=== PATIENT | male | born 1960 | race African-American/Black ===

== ENCOUNTER 2016-08-25 10:10 | Inpatient (IN) | payer OTHER ==
[2016-08-25 14:12] VITALS: BMI 29.5
--- NOTE | 2016-08-25 16:58 | HP ---
Admission [facility] - [facility] Chief Complaint: i am her for rehab from alcohol,cocaine and marijuana Allergies/Adverse Reactions: Allergies Allergy/AdvReac Type Severity Reaction Status Date / Time No Known Allergies Allergy Verified 08/25/16 16:27 History of Present Illness: this 55 years old male with alcohol,cocaine and marijuana dependence,seeking rehab,last treatment [facility] 11/18/13 to 11/21/13 nicotine dependence no significant period of sobriety Exam Limitations: No Limitations - Ebola screening Have you been sick,other than usual withdrawal symptoms: No - Review of Systems Constitutional: No Symptoms Reported EENT: reports: No Symptoms Reported Respiratory: reports: No Symptoms reported Cardiac: reports: No Symptoms Reported GI: reports: No Symptoms Reported : reports: No Symptoms Reported Musculoskeletal: reports: No Symptoms Reported Integumentary: reports: No Symptoms Reported Neuro: reports: No Symptoms reported Endocrine: reports: No Symptoms Reported Hematology: reports: No Symptoms Reported Psychiatric: reports: No Sypmtoms Reported Patient History - Patient Medical History Hx Anemia: No Hx Asthma: Yes (on inhaler) Hx Chronic Obstructive Pulmonary Disease (COPD): No Hx Cancer: No Hx Cardiac Disorders: No Hx Congestive Heart Failure: No Hx Hypertension: No Hx Hypercholesterolemia: No Hx Pacemaker: No HX Cerebrovascular Accident: No Hx Seizures: No Hx Dementia: No Hx Diabetes: No Hx Gastrointestinal Disorders: No Hx Liver Disease: No Hx Genitourinary Disorders: No Hx Sexually Transmitted Disorders: No Hx Renal Disease (ESRD): No Hx Thyroid Disease: No Hx Human Immunodeficiency Virus (HIV): Yes (2002, LAST CD4 -400, vl- undetectable , no OI's ) Hx Hepatitis C: No Hx Depression: No Hx Suicide Attempt: No Hx Bipolar Disorder: No Hx Schizophrenia: No Other Medical History: no suicidal,no homicidal - Patient Surgical History Past Surgical History: No Hx Neurologic Surgery: No Hx Cataract Extraction: No Hx Cardiac Surgery: No Hx Lung Surgery: No Hx Breast Surgery: No Hx Breast Biopsy: No Hx Abdominal Surgery: No Hx Appendectomy: No Hx Cholecystectomy: No Hx Genitourinary Surgery: No Hx Section: No Hx Orthopedic Surgery: No Anesthesia Reaction: No - PPD History Documented Results: Positive w/proof PPD to be Administered?: No - Smoking Cessation Smoking history: Current every day smoker Have you smoked in the past 12 months: Yes Aproximately how many cigarettes per day: 10 Cigars Per Day: 0 Hx Chewing Tobacco Use: No Initiated information on smoking cessation: Yes 'Breaking Loose' booklet given: 08/25/16 - Substance & Tx. History Hx Alcohol Use: Yes Hx Substance Use: Yes Substance Use Type: Alcohol, Cocaine, Marijuana Hx [facility] - Substances Abused Alcohol Route: Oral Frequency: Daily Amount used: 6 of 6 packs of 12 ozs of beer Age of first use: 12 Date of Last Use: 08/25/16 Crack Route: Smoking Frequency: 1-3 times last 30 days Amount used: 200$ Age of first use: 25 Date of Last Use: 08/21/16 Marijuana/Hashish Route: Smoking Frequency: Daily Amount used: 20$ Age of first use: 10 Date of Last Use: 08/25/16 Family Disease History - Family Disease History Family Disease History: Other: Mother (alcohol) Admission Physical Exam [facility] - Vital Signs Vital Signs: Vital Signs - 24 hr 08/25/16 14:04 Temperature 97.8 F Pulse Rate 69 Respiratory 20 Rate Blood Pressure 100/71 - Physical General Appearance: Yes: Within Normal Limits HEENTM: Yes: Hearing grossly Normal, Normocephalic, ARTI, Pharynx Normal Respiratory: Yes: Lungs Clear, Normal Breath Sounds, No Respiratory Distress Neck: Yes: Within Normal Limits Breast: Yes: Within Normal Limits Cardiology: Yes: Within Normal Limits, Regular Rhythm, Regular Rate, S1, S2 Abdominal: Yes: Within Normal Limits, Normal Bowel Sounds, Non Tender, Flat, Soft Genitourinary: Yes: Within Normal Limits Back: Yes: Within Normal Limits Musculoskeletal: Yes: Within Normal Limits Extremities: Yes: Within Normal Limits Neurological: Yes: 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 II-XII NML intact, Fully Oriented, Alert, Motor Strength 5/5 Integumentary: Yes: Within Normal Limits Lymphatic: Yes: Within Normal Limits - Diagnostic (1) Cannabis abuse Current Visit: No Status: Acute (2) Nicotine dependence Current Visit: No Status: Acute (3) Alcohol dependence Current Visit: No Status: Chronic (4) Asthma Current Visit: No Status: Chronic (5) Human immunodeficiency virus infection Current Visit: No Status: Chronic (6) Cocaine dependence Current Visit: Yes Status: Acute (7) Weight loss Current Visit: Yes Status: Acute Cleared for Admission [facility] - Detox or Rehab Claeared for Rehab Admission: Yes [facility] Breath Alcohol Content Breath Alcohol Content: 0.029 Urine Drug Screen - Results Drug Screen Negative: No Urine Drug Screen Results: THC-Marijuana, ALCIDES-Cocaine
[2016-08-25] MEDS ORDERED: IBUPROFEN 400 MG TABLET (FP) PO PRN (17:20)
[2016-08-25] MEDS ORDERED: MAG HYDROX/AL HYDROX/SIMETH 30 ML UNIT-DOSE CUP PO PRN (17:20)
[2016-08-25] MEDS ORDERED: MAGNESIUM CITRATE 300 ML BOTTLE PO PRN (17:20)
[2016-08-25] MEDS ORDERED: guaiFENesin/D-METHORPHAN HB 10 ML UNIT-DOSE CUPS PO PRN (17:20)
[2016-08-25] MEDS ORDERED: MAGNESIUM HYDROX 2400MG/30ML ORAL SUSPENSION 30 ML CUP PO PRN (17:20)
[2016-08-25] MEDS ORDERED: hydrOXYzine PAMOATE 50 MG CAPSULE (FP) PO PRN (17:20)
[2016-08-25] MEDS ORDERED: P-EPHED 60MG/TRIPROLIDI 2.5MG TABLET PO PRN (17:20)
[2016-08-25] MEDS ORDERED: ACETAMINOPHEN 325 MG TABLET (FP) PO PRN (17:20)
[2016-08-25] MEDS ORDERED: LOPERAMIDE HCL 2 MG CAPSULE PO PRN (17:20)
[2016-08-25] MEDS ORDERED: MENTHOL/PHENOL 1 EACH UD MM PRN (17:20)
[2016-08-25] MEDS: NICOTINE 21 MG/24 HOURS TOPICAL PATCH TD SCH (20:05)
[2016-08-25] MEDS: THIAMINE HCL 100 MG TABLET (FP) PO SCH (21:04)
[2016-08-25] MEDS: BUDESONIDE/FORMETEROL FUMARATE 80/4.5 mcg INHALER IH SCH (21:05)
[2016-08-25] MEDS: ATORVASTATIN CA 20 MG TABLET (FP) PO SCH (21:06)
[2016-08-25] MEDS: diphenhydrAMINE HCL 50 MG CAPSULE PO PRN (21:08)
[2016-08-25] MEDS: MONTELUKAST NA 10 MG TABLET PO SCH (21:08)
[2016-08-25] MEDS: lamiVUDine/ZIDOVUDINE 150/300 1 COMBO TABLET PO SCH (21:08)
[2016-08-25] MEDS: RITONAVIR/LOPINAVIR 50MG/200MG 1 COMBO TABLET PO SCH (21:08)
[2016-08-25 22:43] LABS: URINE APPEARANCE CLEAR; URINE BILIRUBIN NEGATIVE (NEGATIVE); URINE BLOOD NEGATIVE (NEGATIVE); URINE COLOR STRAW; URINE GLUCOSE (UA) NEGATIVE (NEGATIVE); URINE KETONE NEGATIVE (NEGATIVE); URINE LEUK ESTERASE NEGATIVE (NEGATIVE); URINE NITRITE NEGATIVE (NEGATIVE); URINE PROTEIN NEGATIVE (NEGATIVE); URINE UROBILINOGEN NEGATIVE mg/dL (0.2-1.0)
[2016-08-26] MEDS: ASPIRIN 81 MG CHEWABLE TABLETS PO SCH (09:26)
[2016-08-26] MEDS: TICAGRELOR 90 MG TABLET PO SCH (09:26)
[2016-08-26] MEDS: PRENATAL VITAMINS W/ FOLIC ACID TABLET (FP) PO SCH (09:26)
[2016-08-26] MEDS: lamiVUDine/ZIDOVUDINE 150/300 1 COMBO TABLET PO SCH ×2 (09:26→21:21)
[2016-08-26] MEDS: RITONAVIR/LOPINAVIR 50MG/200MG 1 COMBO TABLET PO SCH ×2 (09:26→21:21)
[2016-08-26] MEDS: NICOTINE 21 MG/24 HOURS TOPICAL PATCH TD SCH (09:27)
[2016-08-26] MEDS: BUDESONIDE/FORMETEROL FUMARATE 80/4.5 mcg INHALER IH SCH ×2 (09:27→21:21)
[2016-08-26 10:58] LABS: ALBUMIN 3.6 g/dl (3.4-5.0); ANION GAP 7 (8-16); CALCIUM 8.9 mg/dL (8.5-10.1); CO2 27 mmol/L (21-32); GLUCOSE,RANDOM 81 mg/dL (74-106); SGOT/AST 21 U/L (15-37)
[2016-08-26 11:00] LABS: MCH 34.8 pg (25.7-33.7); MCHC 33.9 g/dl (32.0-35.9); MEAN CELL VOLUME 102.7 fl (80-96); MEAN PLT VOLUME 10.1 fl (7.5-11.1); PLATELET COUNT 144 K/MM3 (134-434); RDW 21.4 % (11.9-15.9); WHITE BLOOD COUNT 6.3 K/mm3 (4.0-10.0)
[2016-08-26 11:01] LABS: ALK PHOS 64 U/L (45-117); BILIRUBIN,TOTAL 0.4 mg/dL (0.2-1.0); CREATININE 0.9 mg/dL (0.7-1.3); SGPT/ALT 23 U/L (12-78); TOT PROT 6.7 g/dl (6.4-8.2)
[2016-08-26 17:46] LABS: ANISOCYTOSIS 2+; PLATELET ESTIMATE ADEQUATE (NORMAL)
[2016-08-26 17:47] LABS: POLYCHROMASIA RARE
[2016-08-26] MEDS: diphenhydrAMINE HCL 50 MG CAPSULE PO PRN (21:19)
[2016-08-26] MEDS: MONTELUKAST NA 10 MG TABLET PO SCH (21:19)
[2016-08-26] MEDS: ATORVASTATIN CA 20 MG TABLET (FP) PO SCH (21:19)
[2016-08-26] MEDS: THIAMINE HCL 100 MG TABLET (FP) PO SCH (21:19)
[2016-08-27] MEDS: RITONAVIR/LOPINAVIR 50MG/200MG 1 COMBO TABLET PO SCH ×2 (09:29→21:22)
[2016-08-27] MEDS: ASPIRIN 81 MG CHEWABLE TABLETS PO SCH (09:29)
[2016-08-27] MEDS: TICAGRELOR 90 MG TABLET PO SCH (09:29)
[2016-08-27] MEDS: lamiVUDine/ZIDOVUDINE 150/300 1 COMBO TABLET PO SCH ×2 (09:29→21:22)
[2016-08-27] MEDS: PRENATAL VITAMINS W/ FOLIC ACID TABLET (FP) PO SCH (09:29)
[2016-08-27] MEDS: BUDESONIDE/FORMETEROL FUMARATE 80/4.5 mcg INHALER IH SCH ×2 (09:30→21:22)
[2016-08-27] MEDS: NICOTINE 21 MG/24 HOURS TOPICAL PATCH TD SCH (09:30)
[2016-08-27] MEDS: THIAMINE HCL 100 MG TABLET (FP) PO SCH (21:21)
[2016-08-27] MEDS: diphenhydrAMINE HCL 50 MG CAPSULE PO PRN (21:21)
[2016-08-27] MEDS: ATORVASTATIN CA 20 MG TABLET (FP) PO SCH (21:21)
[2016-08-27] MEDS: MONTELUKAST NA 10 MG TABLET PO SCH (21:22)
--- NOTE | 2016-08-28 06:36 | HP ---
Psychiatrist Admission - Data Date of interview: 08/28/16 Admission source: Self-referred Identifying data: This is the second [facility] admission for this single Black male, unemployed on DSS, domiciled living with family Medical History: Significant for Asthma, HIV and Positive PPD.Smokes 10 cigarettes daily Psychiatric History: Denies history of previous psychiatric contact. However in the past he reported history of multiple psychiatric admissions since the early for "mood" swing in the context of alcohol and drug use. He received treatment with Depakote, Zyprexa, Risperdal and Zoloft in the past. He has not received psychiatric treatment nor taking any psychotropic medication for years. At present, reports doing well. Denies experiencing psychotic, manic or depressive symptoms. Denies suicidal, homicidal ideations. Physical/Sexual Abuse/Trauma History: Denies history of emotional, physical or sexual abuse as well as DV relationship. No service Additional Comment: Reports history of 3 previous misdemeanor arrests. Denies being on probation at present Vital Signs: Vital Signs - 24 hr 08/27/16 08/28/16 08/28/16 07:19 00:30 03:30 Temperature 98.6 F Pulse Rate 57 L Respiratory 16 18 18 Rate Blood Pressure 118/80 Allergies/Adverse Reactions: Allergies Allergy/AdvReac Type Severity Reaction Status Date / Time No Known Allergies Allergy Verified 08/25/16 16:27 Date of last physical exam: 08/25/16 Concur with the findings of this exam: Yes - Substance Abuse/Tx History Hx Alcohol Use: Yes Hx Substance Use: Yes Substance Use Type: Alcohol (Started drinking alcohol at age 12, consumes 6x6k( 12oz) daily. Last drink on 08/25/16), Cocaine (Started smoking crack cocaine at age 25, consumes $200 worth twice a month. Last smoked on 08/21/16), Marijuana ( Started smoking marijuana at age 10, consumes $20 worth daily. Last smoked on ) Hx Substance Use Treatment: Yes (3 previous inpt detox & one inpt rehab @ [facility]) - Admission Criteria Previous failed treatment: Yes Poor recovery environment: Yes Comorbidities: Yes Lacks judgement: Yes Mental Status Exam - Mental Status Exam Alert and Oriented to: Time, Place, Person Cognitive Function: Fair Patient Appearance: Well Groomed Mood: Hopeful, Euthymic Patient Behavior: Guarded Speech Pattern: Clear Voice Loudness: Normal Thought Process: Intact, Goal Oriented Thought Disorder: Not Present Hallucinations: Denies Suicidal Ideation: Denies Homicidal Ideation: Denies Insight/Judgement: Fair Sleep: Well Appetite: Good Muscle strength/Tone: Normal Gait/Station: Normal Psychiatric Findings - Problem List ([place] 1, 2,3) (1) Alcohol dependence Current Visit: No Status: Chronic (2) Cocaine dependence Current Visit: Yes Status: Acute (3) Cannabis dependence Current Visit: Yes Status: Acute (4) Nicotine dependence Current Visit: No Status: Acute (5) Mood disorder Current Visit: No Status: Acute (6) Asthma Current Visit: No Status: Chronic (7) Human immunodeficiency virus infection Current Visit: No Status: Chronic (8) Obesity Current Visit: No Status: Chronic (9) PPD positive Current Visit: Yes Status: Acute - Initial Treatment Plan Initial Treatment Plan: Monitor progress
[2016-08-28 06:58] VITALS: BP 115/82; PULSE 63; TEMP 98.4
[2016-08-28] MEDS: TICAGRELOR 90 MG TABLET PO SCH (09:21)
[2016-08-28] MEDS: ASPIRIN 81 MG CHEWABLE TABLETS PO SCH (09:21)
[2016-08-28] MEDS: BUDESONIDE/FORMETEROL FUMARATE 80/4.5 mcg INHALER IH SCH (09:22)
[2016-08-28] MEDS: PRENATAL VITAMINS W/ FOLIC ACID TABLET (FP) PO SCH (09:22)
[2016-08-28] MEDS: NICOTINE 21 MG/24 HOURS TOPICAL PATCH TD SCH (10:11)
[2016-08-28] MEDS ORDERED: PT OWN MED DRAWER 7, Y5N ONE ×2 (10:11→10:14)
[2016-08-28] MEDS: RITONAVIR/LOPINAVIR 50MG/200MG 1 COMBO TABLET PO SCH (10:13)
[2016-08-28] MEDS: lamiVUDine/ZIDOVUDINE 150/300 1 COMBO TABLET PO SCH (10:24)
[2016-08-28] MEDS ORDERED: ALBUTEROL SO4 6.7 GM HFA INHALER IH PRN (11:27)
[2016-08-28] MEDS ORDERED: BACITRACIN 0.9 GM PACKET TP SCH (11:30)
--- NOTE | 2016-08-28 12:01 | EKG ---
Test Reason : Blood Pressure : / mmHG Vent. Rate : 069 BPM Atrial Rate : 069 BPM P-R Int : 208 ms QRS Dur : 108 ms QT Int : 408 ms P-R-T Axes : 061 081 102 degrees QTc Int : 437 ms NORMAL SINUS RHYTHM POSSIBLE LEFT ATRIAL ENLARGEMENT ANTEROLATERAL INFARCT , AGE UNDETERMINED ABNORMAL ECG NO PREVIOUS ECGS AVAILABLE Confirmed by ADDISON GUTIÉRREZ MD ([id number]) on 08/28/2016 12:01:13 PM Referred By: Gabriel Sierra Confirmed By:ADDISON GUTIÉRREZ MD
== END 2016-08-28 15:41 | disposition left against medical advice (07) | DRG 770 ==
LOC: YASAS 10:10 → Y3W 17:36
PROVIDERS: ADMIT Psychiatry & Neurology Psychiatry; ATTEND Psychiatry & Neurology Psychiatry
PROC: HZ42ZZZ Group Counseling for Substance Abuse Treatment, Cognitive-Behavioral (ICD-10-PCS; principal; 2016-08-25)
DX: F10.20 Alcohol dependence, uncomplicated (principal); F14.20 Cocaine dependence, uncomplicated; F12.20 Cannabis dependence, uncomplicated; F17.210 Nicotine dependence, cigarettes, uncomplicated; F39 Unspecified mood [affective] disorder; J45.909 Unspecified asthma, uncomplicated; Z21 Asymptomatic human immunodeficiency virus [HIV] infection status; E66.9 Obesity, unspecified; Z68.29 Body mass index [BMI] 29.0-29.9, adult; R76.11 Nonspecific reaction to tuberculin skin test without active tuberculosis; Z87.898 Personal history of other specified conditions
CPT/HCPCS: 36415; 80053; 81003; 85027; 86593; 93005; 93010

== ENCOUNTER 2017-10-19 11:00 | Inpatient (IN) | payer OTHER ==
[2017-10-19 12:20] VITALS: BMI 29.5
--- NOTE | 2017-10-19 15:18 | HP ---
CIWA Score - CIWA Score Nausea/Vomitin-No Nausea/No Vomiting Muscle Tremors: 4-Moderate,w/Arms Extend Anxiety: 4-Mod. Anxious/Guarded Agitation: 4-Moderately Restless Paroxysmal Sweats: 3 Orientation: 0-Oriented Tacttile Disturbances: 0-None Auditory Disturbances: 0-None Visual Disturbances: 0-None Headache: 1-Very Mild CIWA-Ar Total Score: 16 Admission ROS [facility] - HPI Chief Complaint: I need to be here for help with my drinking. Allergies/Adverse Reactions: Allergies Allergy/AdvReac Type Severity Reaction Status Date / Time No Known Allergies Allergy Verified 10/19/17 15:03 History of Present Illness: pt is a 56yr old male with a history of alcohol and crack/cocaine dependence seeking detox for treatment. Exam Limitations: No Limitations - Ebola screening Have you traveled outside of the country in the last 21 days: No Have you had contact with anyone from an Ebola affected area: No Have you been sick,other than usual withdrawal symptoms: No Do you have a fever: No - Review of Systems Constitutional: Chills, Diaphoresis, Night Sweats, Changes in sleep EENT: reports: Tearing Respiratory: reports: No Symptoms reported Cardiac: reports: Syncope GI: reports: Poor Appetite, Poor Fluid Intake : reports: No Symptoms Reported Musculoskeletal: reports: No Symptoms Reported Integumentary: reports: Flushing, Sweating Neuro: reports: Headache, Tingling, Tremors Endocrine: reports: Excessive Sweating, Flushing, Intolerance to Cold, Intolerance to Heat Hematology: reports: No Symptoms Reported Psychiatric: reports: Judgement Intact, Mood/Affect Appropiate, Orientated x3, Agitated, Anxious Other Systems: Reviewed and Negative Patient History - Patient Medical History Hx Anemia: No Hx Asthma: Yes (on inhaler) Hx Chronic Obstructive Pulmonary Disease (COPD): No Hx Cancer: No Hx Cardiac Disorders: Yes (hx [place] May 2016) Hx Congestive Heart Failure: No Hx Hypertension: No Hx Hypercholesterolemia: No Hx Pacemaker: No HX Cerebrovascular Accident: No Hx Seizures: No Hx Dementia: No Hx Diabetes: No Hx Gastrointestinal Disorders: No Hx Liver Disease: No Hx Genitourinary Disorders: No Hx Sexually Transmitted Disorders: No Hx Renal Disease (ESRD): No Hx Thyroid Disease: No Hx Human Immunodeficiency Virus (HIV): Yes (2002, LAST CD4 -400, vl- undetectable , no OI's ) Hx Hepatitis C: No Hx Depression: No Hx Suicide Attempt: No (denies) Hx Bipolar Disorder: No Hx Schizophrenia: No - Patient Surgical History Past Surgical History: No Hx Neurologic Surgery: No Hx Cataract Extraction: No Hx Cardiac Surgery: No Hx Lung Surgery: No Hx Breast Surgery: No Hx Breast Biopsy: No Hx Abdominal Surgery: No Hx Appendectomy: No Hx Cholecystectomy: No Hx Genitourinary Surgery: No Hx Section: No Hx Orthopedic Surgery: No Anesthesia Reaction: No - PPD History Previous Implant?: No Documented Results: Positive w/o proof PPD to be Administered?: No - Reproductive History Patient is a Female of Child Bearing Age (11 -55 yrs old): No - Smoking Cessation Smoking history: Current every day smoker Have you smoked in the past 12 months: Yes Aproximately how many cigarettes per day: 10 Cigars Per Day: 0 Hx Chewing Tobacco Use: No Initiated information on smoking cessation: Yes 'Breaking Loose' booklet given: 10/19/17 - Substance & Tx. History Hx Alcohol Use: Yes Hx Substance Use: No Substance Use Type: Alcohol Hx Substance Use Treatment: Yes (last detox [facility] 08/2017) - Substances Abused Alcohol Route: Oral Frequency: Daily Amount used: 3 6pks beer Age of first use: 12 Date of Last Use: 10/19/17 Crack Route: Smoking Frequency: 1-2 times per week Amount used: $100 Age of first use: 25 Date of Last Use: 10/12/17 Marijuana/Hashish Route: Smoking Frequency: Daily Amount used: 2-3 joints Age of first use: 12 Date of Last Use: 10/18/17 Family Disease History - Family Disease History Family Disease History: Other: Mother (alcohol) Admission Physical Exam [facility] - Vital Signs Vital Signs: Vital Signs - 24 hr 10/19/17 12:16 Temperature 98.0 F Pulse Rate 55 L Respiratory 18 Rate Blood Pressure 120/86 - Physical General Appearance: Yes: Appropriately Dressed, Tremorous, Irritable, Sweating, Anxious HEENTM: Yes: Normal Voice, Nasal Congestion, Rhinorrhea Respiratory: Yes: Lungs Clear, Normal Breath Sounds, No Respiratory Distress Neck: Yes: No masses,lesions,Nodules Breast: Yes: Within Normal Limits Cardiology: Yes: Regular Rhythm, Regular Rate, S1, S2 Abdominal: Yes: Normal Bowel Sounds, Non Tender, Soft Genitourinary: Yes: Within Normal Limits Back: Yes: Normal Inspection Musculoskeletal: Yes: full range of Motion, Back pain Extremities: Yes: Normal Capillary Refill, Normal Inspection, Non-Tender, Tremors Neurological: Yes: Fully Oriented, Alert, Normal Response Integumentary: Yes: Normal Color, Diaphoresis Lymphatic: Yes: Within Normal Limits - Diagnostic (1) Alcohol dependence with withdrawal Current Visit: Yes Status: Chronic Qualifiers: Complication of substance-induced condition: uncomplicated (2) Cocaine dependence Current Visit: Yes Status: Chronic Qualifiers: Substance use status: uncomplicated (3) Nicotine dependence Current Visit: Yes Status: Chronic Qualifiers: Nicotine product type: cigarettes Substance use status: uncomplicated Qualified Code(s): F17.210 - Nicotine dependence, cigarettes, uncomplicated (4) Asthma Current Visit: Yes Status: Chronic Qualifiers: Asthma severity: mild (5) HTN (hypertension) Current Visit: Yes Status: Chronic Qualifiers: Hypertension type: essential hypertension (6) Human immunodeficiency virus infection Current Visit: Yes Status: Chronic Comment: not compliant with his medication. (7) PPD positive Current Visit: Yes Status: Chronic Comment: hx of PPD + Cleared for Admission [facility] - Detox or Rehab [facility] Level of Care: Medically Managed Detox Regimen/Protocol: Librium [facility] Breath Alcohol Content Breath Alcohol Content: 0 Urine Drug Screen - Results Drug Screen Negative: No Urine Drug Screen Results: THC-Marijuana, ALCIDES-Cocaine, BZO-Benzodiazepines
[2017-10-19] MEDS ORDERED: IBUPROFEN 400 MG TABLET (FP) PO PRN (15:22)
[2017-10-19] MEDS ORDERED: chlordiazePOXIDE HCL 25 MG CAPSULE PO PRN (15:22)
[2017-10-19] MEDS ORDERED: P-EPHED 60MG/TRIPROLIDI 2.5MG TABLET PO PRN (15:22)
[2017-10-19] MEDS ORDERED: guaiFENesin/D-METHORPHAN HB 10 ML UNIT-DOSE CUPS PO PRN (15:22)
[2017-10-19] MEDS ORDERED: hydrOXYzine PAMOATE 50 MG CAPSULE (FP) PO PRN (15:22)
[2017-10-19] MEDS ORDERED: MENTHOL/PHENOL 1 EACH UD MM PRN (15:22)
[2017-10-19] MEDS ORDERED: ACETAMINOPHEN 325 MG TABLET (FP) PO PRN (15:22)
[2017-10-19] MEDS ORDERED: MAG HYDROX/AL HYDROX/SIMETH 30 ML UNIT-DOSE CUP PO PRN (15:22)
[2017-10-19] MEDS ORDERED: MAGNESIUM CITRATE 300 ML BOTTLE PO PRN (15:22)
[2017-10-19] MEDS ORDERED: LOPERAMIDE HCL 2 MG CAPSULE PO PRN (15:22)
[2017-10-19] MEDS ORDERED: MAGNESIUM HYDROX 2400MG/30ML ORAL SUSPENSION 30 ML CUP PO PRN (15:22)
[2017-10-19] MEDS ORDERED: ALBUTEROL SO4 8 GM HFA INHALER IH PRN (15:24)
[2017-10-19] MEDS ORDERED: chlordiazePOXIDE HCL 25 MG CAPSULE PO ONE (16:00)
[2017-10-19] MEDS: chlordiazePOXIDE HCL 25 MG CAPSULE PO SCH ×2 (17:47→22:36)
[2017-10-19] MEDS ORDERED: MELATONIN 5 MG TABLETS PO PRN (22:00)
[2017-10-19] MEDS: THIAMINE HCL 100 MG TABLET (FP) PO SCH (22:35)
[2017-10-19] MEDS: ATORVASTATIN CA 80 MG TABLET (FP) PO SCH (22:36)
[2017-10-20] MEDS: chlordiazePOXIDE HCL 25 MG CAPSULE PO SCH ×4 (06:18→23:04)
[2017-10-20] MEDS ORDERED: NON-FORMULARY MED PO SCH (10:00)
[2017-10-20] MEDS: metoPROLOL SUCCINATE 25 MG TAB.SR.24H (FP) PO SCH (10:59)
[2017-10-20 11:00] LABS: URINE APPEARANCE TURBID; URINE BILIRUBIN NEGATIVE (<2.0 mg/dL); URINE GLUCOSE (UA) NEGATIVE (NEGATIVE); URINE KETONE NEGATIVE (NEGATIVE); URINE LEUK ESTERASE NEGATIVE (NEGATIVE); URINE NITRITE NEGATIVE (NEGATIVE); URINE PROTEIN NEGATIVE (NEGATIVE)
[2017-10-20 11:00] LABS: MEAN CELL VOLUME 90.6 fl (80-96); MEAN PLT VOLUME 10.7 fl (7.5-11.1); RBC 4.17 M/mm3 (4.00-5.60)
[2017-10-20] MEDS: ASPIRIN 81 MG CHEWABLE TABLETS PO SCH (11:00)
[2017-10-20] MEDS: NICOTINE 21 MG/24 HOURS TOPICAL PATCH TD SCH (11:00)
[2017-10-20] MEDS: PRENATAL VITAMINS W/ FOLIC ACID TABLET (FP) PO SCH (11:00)
[2017-10-20] MEDS: LOSARTAN POTASSIUM 25 MG TABLET PO SCH (11:01)
[2017-10-20 11:03] LABS: HEMATOCRIT 37.7 % (35.4-49); HEMOGLOBIN 12.8 GM/dL (11.7-16.9); MCH 30.6 pg (25.7-33.7); MCHC 33.8 g/dl (32.0-35.9); PLATELET COUNT 131 K/MM3 (134-434); WHITE BLOOD COUNT 5.6 K/mm3 (4.0-10.0)
[2017-10-20 11:19] LABS: URINE COLOR YELLOW
[2017-10-20 11:25] LABS: CHLORIDE 103 mmol/L (98-107); POTASSIUM 3.9 mmol/L (3.5-5.1); SODIUM 138 mmol/L (136-145)
[2017-10-20 11:35] LABS: ALBUMIN 3.7 g/dl (3.4-5.0); ALK PHOS 72 U/L (45-117); ANION GAP 9 MMOL/L (8-16); BILIRUBIN,TOTAL 0.6 mg/dL (0.2-1.0); BLOOD UREA NITROGEN 10 mg/dL (7-18); CALCIUM 8.9 mg/dL (8.5-10.1); CO2 26 mmol/L (21-32); CREATININE 0.7 mg/dL (0.55-1.3); GLUCOSE,RANDOM 83 mg/dL (74-106); SGOT/AST 35 U/L (15-37); SGPT/ALT 48 U/L (13-61); TOT PROT 7.2 g/dl (6.4-8.2)
--- NOTE | 2017-10-20 11:43 | PN ---
S CIWA - CIWA Score Nausea/Vomitin-No Nausea/No Vomiting Muscle Tremors: 1-None Visible, but [place] Anxiety: 1-Mildly Anxious Agitation: 1-Slight > Activity Paroxysmal Sweats: No Perspiration Orientation: 0-Oriented Tacttile Disturbances: 0-None Auditory Disturbances: 0-None Visual Disturbances: 0-None Headache: 0-None Present CIWA-Ar Total Score: 3 [facility] Progress Note (SOAP) Subjective: S: pt states has h/o CAD and s/p stent placement- on Brilenta- called pts pharmacy and verified that pt has an active prescription, also on Genvoya and O: Vital Signs - 24 hr 10/19/17 10/19/17 10/19/17 12:16 18:16 22:14 Temperature 98.0 F 98.1 F 97.7 F Pulse Rate 55 L 53 L 65 Respiratory 18 16 18 Rate Blood Pressure 120/86 109/73 109/75 10/20/17 10/20/17 10/20/17 00:30 07:46 08:51 Temperature 97.9 F 98.2 F Pulse Rate 52 L 64 Respiratory 18 18 18 Rate Blood Pressure 105/69 123/88 Laboratory Tests 10/20/17 10/20/17 10/20/17 07:50 07:50 09:00 WBC 5.6 RBC 4.17 Hgb 12.8 Hct 37.7 MCV 90.6 MCH 30.6 MCHC 33.8 RDW 15.0 Plt Count 131 L MPV 10.7 Sodium 138 Potassium 3.9 Chloride 103 Carbon Dioxide 26 Anion Gap 9 BUN 10 Creatinine 0.7 Creat Clearance w eGFR > 60 Random Glucose 83 Calcium 8.9 Total Bilirubin 0.6 AST 35 ALT 48 Alkaline Phosphatase 72 Total Protein 7.2 Albumin 3.7 Urine Color Yellow Urine Appearance Turbid Urine pH 5.0 Ur Specific [place] 1.020 Urine Protein Negative Urine Glucose (UA) Negative Urine Ketones Negative Urine Blood Negative Urine Nitrite Negative Urine Bilirubin Negative Urine Urobilinogen 2.0 Ur Leukocyte Esterase Negative nl labs and nl VS A/P: 56yr old male with a history of alcohol and crack/cocaine dependence here for detox. Will order genvoya for HIV, Brilenta for CAD/s/p stent placement REquesting eye drops for dry eye.
[2017-10-20] MEDS: NAPHAZOLINE/PHENIRAMINE OPHTHALMIC 15 ML BOTTLE OU PRN (12:26)
[2017-10-20] MEDS ORDERED: TICAGRELOR 90 MG TABLET PO ONE (12:30)
[2017-10-20] MEDS: TICAGRELOR 90 MG TABLET PO SCH (23:03)
[2017-10-20] MEDS: ATORVASTATIN CA 80 MG TABLET (FP) PO SCH (23:04)
[2017-10-20] MEDS: THIAMINE HCL 100 MG TABLET (FP) PO SCH (23:04)
[2017-10-20] MEDS: diphenhydrAMINE HCL 25 MG CAPSULE (FP) PO PRN (23:05)
[2017-10-21] MEDS: chlordiazePOXIDE HCL 25 MG CAPSULE PO SCH ×2 (06:15→10:30)
[2017-10-21] MEDS: metoPROLOL SUCCINATE 25 MG TAB.SR.24H (FP) PO SCH (10:29)
[2017-10-21] MEDS: LOSARTAN POTASSIUM 25 MG TABLET PO SCH (10:29)
[2017-10-21] MEDS: PRENATAL VITAMINS W/ FOLIC ACID TABLET (FP) PO SCH (10:29)
[2017-10-21] MEDS: TICAGRELOR 90 MG TABLET PO SCH ×2 (10:29→22:09)
[2017-10-21] MEDS: ASPIRIN 81 MG CHEWABLE TABLETS PO SCH (10:29)
[2017-10-21] MEDS: ELVITEG/COB/EMTRI/TENOF (GENVOYA) TABLET (NF) PO SCH (10:30)
[2017-10-21] MEDS: NICOTINE 21 MG/24 HOURS TOPICAL PATCH TD SCH (10:30)
[2017-10-21] MEDS: NAPHAZOLINE/PHENIRAMINE OPHTHALMIC 15 ML BOTTLE OU PRN (10:32)
--- NOTE | 2017-10-21 16:11 | PN ---
S CIWA - CIWA Score Nausea/Vomitin-Mild Nausea/No Vomiting Muscle Tremors: 3 Anxiety: 3 Agitation: 2 Paroxysmal Sweats: 1-Minimal Palms Moist Orientation: 0-Oriented Tacttile Disturbances: 0-None Auditory Disturbances: 0-None Visual Disturbances: 0-None Headache: 0-None Present CIWA-Ar Total Score: 10 S Progress Note (SOAP) Subjective: sweat tremor trouble sleep at night anxiety Objective: 10/21/17 16:10 Vital Signs Temperature 98.1 F 10/21/17 13:48 Pulse Rate 76 10/21/17 13:48 Respiratory Rate 18 10/21/17 13:48 Blood Pressure 101/52 10/21/17 13:48 O2 Sat by Pulse Oximetry (%) Laboratory Last Values WBC 5.6 K/mm3 (4.0-10.0) 10/20/17 07:50 RBC 4.17 M/mm3 (4.00-5.60) 10/20/17 07:50 Hgb 12.8 GM/dL (11.7-16.9) 10/20/17 07:50 Hct 37.7 % (35.4-49) 10/20/17 07:50 MCV 90.6 fl (80-96) 10/20/17 07:50 MCH 30.6 pg (25.7-33.7) 10/20/17 07:50 MCHC 33.8 g/dl (32.0-35.9) 10/20/17 07:50 RDW 15.0 % (11.9-15.9) 10/20/17 07:50 Plt Count 131 K/MM3 (134-434) L 10/20/17 07:50 MPV 10.7 fl (7.5-11.1) 10/20/17 07:50 Sodium 138 mmol/L (136-145) 10/20/17 07:50 Potassium 3.9 mmol/L (3.5-5.1) 10/20/17 07:50 Chloride 103 mmol/L (98-107) 10/20/17 07:50 Carbon Dioxide 26 mmol/L (21-32) 10/20/17 07:50 Anion Gap 9 MMOL/L (8-16) 10/20/17 07:50 BUN 10 mg/dL (7-18) 10/20/17 07:50 Creatinine 0.7 mg/dL (0.55-1.3) 10/20/17 07:50 Creat Clearance w eGFR > 60 (>60) 10/20/17 07:50 Random Glucose 83 mg/dL (74-106) 10/20/17 07:50 Calcium 8.9 mg/dL (8.5-10.1) 10/20/17 07:50 Total Bilirubin 0.6 mg/dL (0.2-1.0) 10/20/17 07:50 AST 35 U/L (15-37) 10/20/17 07:50 ALT 48 U/L (13-61) 10/20/17 07:50 Alkaline Phosphatase 72 U/L (45-117) 10/20/17 07:50 Total Protein 7.2 g/dl (6.4-8.2) 10/20/17 07:50 Albumin 3.7 g/dl (3.4-5.0) 10/20/17 07:50 Urine Color Yellow 10/20/17 09:00 Urine Appearance Turbid 10/20/17 09:00 Urine pH 5.0 (5.0-8.0) 10/20/17 09:00 Ur Specific [place] 1.020 (1.001-1.035) 10/20/17 09:00 Urine Protein Negative (NEGATIVE) 10/20/17 09:00 Urine Glucose (UA) Negative (NEGATIVE) 10/20/17 09:00 Urine Ketones Negative (NEGATIVE) 10/20/17 09:00 Urine Blood Negative (NEGATIVE) 10/20/17 09:00 Urine Nitrite Negative (NEGATIVE) 10/20/17 09:00 Urine Bilirubin Negative (<2.0 mg/dL) 10/20/17 09:00 Urine Urobilinogen 2.0 mg/dL (0.2-1.0) 10/20/17 09:00 Ur Leukocyte Esterase Negative (NEGATIVE) 10/20/17 09:00 RPR Titer Nonreactive (NONREACTIVE) 10/20/17 07:50 lab noted Assessment: 10/21/17 16:10 withdrawal sx Plan: continue detox
[2017-10-21] MEDS: chlordiazePOXIDE 5 MG CAPSULE PO SCH ×2 (17:16→22:09)
[2017-10-21] MEDS: THIAMINE HCL 100 MG TABLET (FP) PO SCH (22:08)
[2017-10-21] MEDS: ATORVASTATIN CA 80 MG TABLET (FP) PO SCH (22:09)
[2017-10-21] MEDS: diphenhydrAMINE HCL 25 MG CAPSULE (FP) PO PRN (22:10)
--- NOTE | 2017-10-21 22:35 | EKG ---
Test Reason : Blood Pressure : / mmHG Vent. Rate : 055 BPM Atrial Rate : 055 BPM P-R Int : 218 ms QRS Dur : 108 ms QT Int : 428 ms P-R-T Axes : 061 073 086 degrees QTc Int : 409 ms SINUS BRADYCARDIA WITH 1ST DEGREE A-V BLOCK POSSIBLE LEFT ATRIAL ENLARGEMENT ANTEROLATERAL INFARCT (CITED ON OR BEFORE 25-AUG-2016) ABNORMAL ECG WHEN COMPARED WITH ECG OF 24-AUG-2017 12:22, T WAVE INVERSION MORE EVIDENT IN ANTERIOR LEADS Confirmed by LAUREN HAMMER MD ([id number]) on 10/21/2017 10:35:31 PM Referred By: Confirmed By:LAUREN HAMMER MD
[2017-10-22] MEDS: chlordiazePOXIDE 5 MG CAPSULE PO SCH ×2 (06:09→11:14)
[2017-10-22] MEDS: PRENATAL VITAMINS W/ FOLIC ACID TABLET (FP) PO SCH (11:13)
[2017-10-22] MEDS: LOSARTAN POTASSIUM 25 MG TABLET PO SCH (11:14)
[2017-10-22] MEDS: TICAGRELOR 90 MG TABLET PO SCH ×2 (11:14→22:20)
[2017-10-22] MEDS: metoPROLOL SUCCINATE 25 MG TAB.SR.24H (FP) PO SCH (11:14)
[2017-10-22] MEDS: ASPIRIN 81 MG CHEWABLE TABLETS PO SCH (11:14)
[2017-10-22] MEDS: ELVITEG/COB/EMTRI/TENOF (GENVOYA) TABLET (NF) PO SCH (11:14)
[2017-10-22] MEDS: NICOTINE 21 MG/24 HOURS TOPICAL PATCH TD SCH (11:15)
[2017-10-22] MEDS: NAPHAZOLINE/PHENIRAMINE OPHTHALMIC 15 ML BOTTLE OU PRN (11:43)
[2017-10-22] MEDS: chlordiazePOXIDE HCL 10 MG CAPSULE PO SCH ×2 (17:45→22:21)
--- NOTE | 2017-10-22 17:55 | PN ---
[facility] Progress Note (SOAP) Subjective: feeling better sleep better no gi distress social with ;peers in day room discuss aftercare Objective: 10/22/17 17:54 Vital Signs Temperature 97.9 F 10/22/17 17:39 Pulse Rate 72 10/22/17 17:39 Respiratory Rate 18 10/22/17 17:39 Blood Pressure 91/54 10/22/17 17:39 O2 Sat by Pulse Oximetry (%) Laboratory Last Values WBC 5.6 K/mm3 (4.0-10.0) 10/20/17 07:50 RBC 4.17 M/mm3 (4.00-5.60) 10/20/17 07:50 Hgb 12.8 GM/dL (11.7-16.9) 10/20/17 07:50 Hct 37.7 % (35.4-49) 10/20/17 07:50 MCV 90.6 fl (80-96) 10/20/17 07:50 MCH 30.6 pg (25.7-33.7) 10/20/17 07:50 MCHC 33.8 g/dl (32.0-35.9) 10/20/17 07:50 RDW 15.0 % (11.9-15.9) 10/20/17 07:50 Plt Count 131 K/MM3 (134-434) L 10/20/17 07:50 MPV 10.7 fl (7.5-11.1) 10/20/17 07:50 Sodium 138 mmol/L (136-145) 10/20/17 07:50 Potassium 3.9 mmol/L (3.5-5.1) 10/20/17 07:50 Chloride 103 mmol/L (98-107) 10/20/17 07:50 Carbon Dioxide 26 mmol/L (21-32) 10/20/17 07:50 Anion Gap 9 MMOL/L (8-16) 10/20/17 07:50 BUN 10 mg/dL (7-18) 10/20/17 07:50 Creatinine 0.7 mg/dL (0.55-1.3) 10/20/17 07:50 Creat Clearance w eGFR > 60 (>60) 10/20/17 07:50 Random Glucose 83 mg/dL (74-106) 10/20/17 07:50 Calcium 8.9 mg/dL (8.5-10.1) 10/20/17 07:50 Total Bilirubin 0.6 mg/dL (0.2-1.0) 10/20/17 07:50 AST 35 U/L (15-37) 10/20/17 07:50 ALT 48 U/L (13-61) 10/20/17 07:50 Alkaline Phosphatase 72 U/L (45-117) 10/20/17 07:50 Total Protein 7.2 g/dl (6.4-8.2) 10/20/17 07:50 Albumin 3.7 g/dl (3.4-5.0) 10/20/17 07:50 Urine Color Yellow 10/20/17 09:00 Urine Appearance Turbid 10/20/17 09:00 Urine pH 5.0 (5.0-8.0) 10/20/17 09:00 Ur Specific [place] 1.020 (1.001-1.035) 10/20/17 09:00 Urine Protein Negative (NEGATIVE) 10/20/17 09:00 Urine Glucose (UA) Negative (NEGATIVE) 10/20/17 09:00 Urine Ketones Negative (NEGATIVE) 10/20/17 09:00 Urine Blood Negative (NEGATIVE) 10/20/17 09:00 Urine Nitrite Negative (NEGATIVE) 10/20/17 09:00 Urine Bilirubin Negative (<2.0 mg/dL) 10/20/17 09:00 Urine Urobilinogen 2.0 mg/dL (0.2-1.0) 10/20/17 09:00 Ur Leukocyte Esterase Negative (NEGATIVE) 10/20/17 09:00 RPR Titer Nonreactive (NONREACTIVE) 10/20/17 07:50 lab noted Assessment: 10/22/17 17:55 withdrawal sx Plan: continue detox
[2017-10-22] MEDS: THIAMINE HCL 100 MG TABLET (FP) PO SCH (22:20)
[2017-10-22] MEDS: ATORVASTATIN CA 80 MG TABLET (FP) PO SCH (22:20)
[2017-10-23] MEDS: chlordiazePOXIDE HCL 10 MG CAPSULE PO SCH ×2 (05:21→10:04)
[2017-10-23 07:23] VITALS: TEMP 97.9
--- NOTE | 2017-10-23 09:03 | DS ---
[facility] Detox Discharge Summary Admission Date: 10/19/17 Discharge Date: 10/23/17 - History Present History: Alcohol Dependence - Physical Exam Results Vital Signs: Vital Signs Temperature 97.9 F 10/23/17 07:23 Pulse Rate 54 L 10/23/17 07:23 Respiratory Rate 18 10/23/17 07:23 Blood Pressure 109/66 10/23/17 07:23 O2 Sat by Pulse Oximetry (%) Pertinent Admission Physical Exam Findings: alcohol withdrawal sx Vital Signs Temperature 97.9 F 10/23/17 09:59 Pulse Rate 75 10/23/17 09:59 Respiratory Rate 18 10/23/17 09:59 Blood Pressure 112/80 10/23/17 09:59 O2 Sat by Pulse Oximetry (%) Laboratory Last Values WBC 5.6 K/mm3 (4.0-10.0) 10/20/17 07:50 RBC 4.17 M/mm3 (4.00-5.60) 10/20/17 07:50 Hgb 12.8 GM/dL (11.7-16.9) 10/20/17 07:50 Hct 37.7 % (35.4-49) 10/20/17 07:50 MCV 90.6 fl (80-96) 10/20/17 07:50 MCH 30.6 pg (25.7-33.7) 10/20/17 07:50 MCHC 33.8 g/dl (32.0-35.9) 10/20/17 07:50 RDW 15.0 % (11.9-15.9) 10/20/17 07:50 Plt Count 131 K/MM3 (134-434) L 10/20/17 07:50 MPV 10.7 fl (7.5-11.1) 10/20/17 07:50 Sodium 138 mmol/L (136-145) 10/20/17 07:50 Potassium 3.9 mmol/L (3.5-5.1) 10/20/17 07:50 Chloride 103 mmol/L (98-107) 10/20/17 07:50 Carbon Dioxide 26 mmol/L (21-32) 10/20/17 07:50 Anion Gap 9 MMOL/L (8-16) 10/20/17 07:50 BUN 10 mg/dL (7-18) 10/20/17 07:50 Creatinine 0.7 mg/dL (0.55-1.3) 10/20/17 07:50 Creat Clearance w eGFR > 60 (>60) 10/20/17 07:50 Random Glucose 83 mg/dL (74-106) 10/20/17 07:50 Calcium 8.9 mg/dL (8.5-10.1) 10/20/17 07:50 Total Bilirubin 0.6 mg/dL (0.2-1.0) 10/20/17 07:50 AST 35 U/L (15-37) 10/20/17 07:50 ALT 48 U/L (13-61) 10/20/17 07:50 Alkaline Phosphatase 72 U/L (45-117) 10/20/17 07:50 Total Protein 7.2 g/dl (6.4-8.2) 10/20/17 07:50 Albumin 3.7 g/dl (3.4-5.0) 10/20/17 07:50 Urine Color Yellow 10/20/17 09:00 Urine Appearance Turbid 10/20/17 09:00 Urine pH 5.0 (5.0-8.0) 10/20/17 09:00 Ur Specific [place] 1.020 (1.001-1.035) 10/20/17 09:00 Urine Protein Negative (NEGATIVE) 10/20/17 09:00 Urine Glucose (UA) Negative (NEGATIVE) 10/20/17 09:00 Urine Ketones Negative (NEGATIVE) 10/20/17 09:00 Urine Blood Negative (NEGATIVE) 10/20/17 09:00 Urine Nitrite Negative (NEGATIVE) 10/20/17 09:00 Urine Bilirubin Negative (<2.0 mg/dL) 10/20/17 09:00 Urine Urobilinogen 2.0 mg/dL (0.2-1.0) 10/20/17 09:00 Ur Leukocyte Esterase Negative (NEGATIVE) 10/20/17 09:00 RPR Titer Nonreactive (NONREACTIVE) 10/20/17 07:50 lab noted - Treatment Hospital Course: Detox Protocol Followed, Detoxed Safely, Responded well, Discharged Condition Good, Rehab Referral Accepted Patient has Accepted a Rehab Referral to: [facility] - Medication Discharge Medications: Ambulatory Orders Aspirin [ASA -] 81 mg PO DAILY 08/25/16 Elviteg/Cob/Emtri/Tenof Alafen [Genvoya Tablet] 1 each PO DAILY 10/19/17 Albuterol Sulfate Inhaler - [Ventolin HFA Inhaler -] 2 inh PO Q4H PRN #1 inhaler 10/22/17 Atorvastatin Ca [Lipitor] 80 mg PO HS #30 tablet 10/22/17 Losartan Potassium [Cozaar -] 25 mg PO DAILY #30 tablet 10/22/17 Metoprolol Succinate [Toprol XL -] 25 mg PO DAILY #30 tab.sr.24h 10/22/17 Ticagrelor [Brilinta] 90 mg PO BID 10/23/17 - Diagnosis (1) Hypercholesterolemia Status: Chronic (2) Alcohol dependence with withdrawal Status: Acute Qualifiers: Complication of substance-induced condition: uncomplicated (3) Asthma Status: Chronic Qualifiers: Asthma severity: mild Asthma persistence: intermittent Asthma complication type: with status asthmaticus Qualified Code(s): J45.22 - Mild intermittent asthma with status asthmaticus (4) HTN (hypertension) Status: Chronic Qualifiers: Hypertension type: essential hypertension (5) Human immunodeficiency virus infection Status: Chronic (6) Nicotine dependence Status: Chronic Qualifiers: Nicotine product type: cigarettes Substance use status: in withdrawal Qualified Code(s): F17.213 - Nicotine dependence, cigarettes, with withdrawal (7) PPD positive Status: Resolved - AMA Did Patient Leave Against Medical Advice: No
[2017-10-23 10:00] VITALS: BP 112/80; PULSE 75
[2017-10-23] MEDS: NICOTINE 21 MG/24 HOURS TOPICAL PATCH TD SCH (10:04)
[2017-10-23] MEDS: ASPIRIN 81 MG CHEWABLE TABLETS PO SCH (10:04)
[2017-10-23] MEDS: metoPROLOL SUCCINATE 25 MG TAB.SR.24H (FP) PO SCH (10:04)
[2017-10-23] MEDS: PRENATAL VITAMINS W/ FOLIC ACID TABLET (FP) PO SCH (10:05)
[2017-10-23] MEDS: LOSARTAN POTASSIUM 25 MG TABLET PO SCH (10:05)
[2017-10-23] MEDS: TICAGRELOR 90 MG TABLET PO SCH (10:06)
[2017-10-23] MEDS: ELVITEG/COB/EMTRI/TENOF (GENVOYA) TABLET (NF) PO SCH (11:31)
== END 2017-10-23 12:50 | disposition other institution (70) | DRG 775 ==
LOC: YASAS 11:00 → Y6N 15:49
PROC: HZ2ZZZZ Detoxification Services for Substance Abuse Treatment (ICD-10-PCS; principal; 2017-10-19)
DX: F10.230 Alcohol dependence with withdrawal, uncomplicated (principal); F17.210 Nicotine dependence, cigarettes, uncomplicated; Z21 Asymptomatic human immunodeficiency virus [HIV] infection status; J45.22 Mild intermittent asthma with status asthmaticus; I25.10 Atherosclerotic heart disease of native coronary artery without angina pectoris; I10 Essential (primary) hypertension; Z95.5 Presence of coronary angioplasty implant and graft; I25.2 Old myocardial infarction; E78.00 Pure hypercholesterolemia, unspecified; R76.11 Nonspecific reaction to tuberculin skin test without active tuberculosis
CPT/HCPCS: 36415; 71046-TC-FY; 80053; 81003; 85027; 86593; 93005; 93010

== ENCOUNTER 2017-10-23 12:59 | Inpatient (IN) | payer OTHER ==
[2017-10-23] MEDS ORDERED: P-EPHED 60MG/TRIPROLIDI 2.5MG TABLET PO PRN (14:14)
[2017-10-23] MEDS ORDERED: MAG HYDROX/AL HYDROX/SIMETH 30 ML UNIT-DOSE CUP PO PRN (14:14)
[2017-10-23] MEDS ORDERED: MENTHOL/PHENOL 1 EACH UD MM PRN (14:14)
[2017-10-23] MEDS ORDERED: MAGNESIUM HYDROX 2400MG/30ML ORAL SUSPENSION 30 ML CUP PO PRN (14:14)
[2017-10-23] MEDS ORDERED: MAGNESIUM CITRATE 300 ML BOTTLE PO PRN (14:14)
[2017-10-23] MEDS ORDERED: guaiFENesin/D-METHORPHAN HB 10 ML UNIT-DOSE CUPS PO PRN (14:14)
[2017-10-23] MEDS ORDERED: ACETAMINOPHEN 325 MG TABLET (FP) PO PRN (14:14)
[2017-10-23] MEDS ORDERED: LOPERAMIDE HCL 2 MG CAPSULE PO PRN (14:14)
[2017-10-23] MEDS ORDERED: hydrOXYzine PAMOATE 50 MG CAPSULE (FP) PO PRN (14:14)
[2017-10-23] MEDS ORDERED: ALBUTEROL SO4 8 GM HFA INHALER IH PRN (14:15)
[2017-10-23] MEDS ORDERED: NICOTINE POLACRILEX 2 MG GUM BUC PRN (15:24)
--- NOTE | 2017-10-23 16:39 | HP ---
KATIE AKINS Rehab Assess/Revision - Admission History Admitted to Rehab from: [facility] Date of Admission to Rehab: 10/23/18 - Vital signs Vital Signs: Vital Signs Period Temp Pulse Resp BP Sys/Shoemaker Pulse Ox Last 24 Hr 98 F 71 20 107/72 - Findings Detox History & Physical reviewed: Yes Concur with findings: Yes Comments/Additional Findings: transferred from detox to rehab admission as per protocol Inpatient Rehab Admission - Initial Determination Are CD services needed?: Yes Free of communicable disease: Yes Not in need of hospitalization: Yes - Rehab Admission Criteria Previous failed treatment: Yes Poor recovery environment: Yes Comorbidities: Yes Lacks judgement: No Patient is meeting Inpatient Rehab admission criteria:: Yes
--- NOTE | 2017-10-23 17:54 | PN ---
[facility] Progress Note Note: Patient is on Genvoya and Brilinta. There is an increased risk of bleed when patient is on both medications. Patient was taking Gevoya w/ Brilenta at home and while on detox w/o bleeding or bruising episodes. Patient informed of the risks related to combining the two medications and states wants to continue both. Patient instructed to notify staff of any bleeding, bruising or black/ tarry stools.
[2017-10-23] MEDS: TICAGRELOR 90 MG TABLET PO SCH (21:38)
[2017-10-23] MEDS: ATORVASTATIN CA 80 MG TABLET (FP) PO SCH (21:39)
[2017-10-23] MEDS: THIAMINE HCL 100 MG TABLET (FP) PO SCH (21:40)
[2017-10-24] MEDS: ELVITEG/COB/EMTRI/TENOF (GENVOYA) TABLET (NF) PO SCH (10:30)
[2017-10-24] MEDS: ARTIFICIAL TEARS (POLYVINYL ALCOHOL) OPTH DROPS OU PRN (10:30)
[2017-10-24] MEDS: PRENATAL VITAMINS W/ FOLIC ACID TABLET (FP) PO SCH (10:31)
[2017-10-24] MEDS: LOSARTAN POTASSIUM 25 MG TABLET PO SCH (10:31)
[2017-10-24] MEDS: ASPIRIN 81 MG CHEWABLE TABLETS PO SCH (10:31)
[2017-10-24] MEDS: metoPROLOL SUCCINATE 25 MG TAB.SR.24H (FP) PO SCH (10:31)
[2017-10-24] MEDS: TICAGRELOR 90 MG TABLET PO SCH ×2 (10:31→21:38)
[2017-10-24] MEDS: NICOTINE 21 MG/24 HOURS TOPICAL PATCH TD SCH (10:31)
--- NOTE | 2017-10-24 11:31 | HP ---
Psychiatrist Admission - Data Date of interview: 10/24/17 Admission source: 6N Identifying data: This is the third [facility] admission for this s56 years old single Black male, unemployed on SSI, domiciled living with family Medical History: Significant for bronchial asthma, coronary artery disease/ myocardial infarction in 2017, HIV, and Positive PPD. Smokes 10 cigarettes daily Psychiatric History: Patient is not forthcoming with information in reporting history of his mental illness. Reluctantly admitted that he was diagnosed with Schizphrenia and has had multiple psychiatric hospitalizations. He is known to [facility], [facility], [facility], [facility] etc. Claims that up to 2 months ago, he was attending [facility], an outpatient clinic in [place] where he was seeing a psychiatrist and a therapist. He said that he was prescribed Abilify and Zoloft but was not compliant. He told internal communications writer that his case was closed because he would not keep his appointment with the psychiatrist and was only seeing the therapist. He told internal communications writer that the only reason he was seeing the psychiatrist is because he is on SSI and at some point would need to be recertified. He said that in the past, he has taken Depakote, Zyprexa and Risperdal. He is unwilling to resume taking psychotropic medications during this admission. Reports previous suicidal attempts by cutting his wrist and jumping off a window. At present, reports feeling depressed and sleeping poorly. Denies experiencing psychotic or manic symptoms, S/H ideationshas a history of several psychiatric hospitalizations for "mood swings" in the context of using drugs and drinking alcohol. Non-compliant eith after care and medications, treated in the past with depakote, Risperdal,Zyprexa, reports he stopped medications 4 months ago, does not think he needs to restart medications , reports angelo he feels "fine" and let know when he needs to restart. Physical/Sexual Abuse/Trauma History: Denies history of emotional, physical or sexual abuse as well as DV relationship. No service Additional Comment: Reports history of 3 previous misdemeanor arrests. Denies being on probation at present Vital Signs: Vital Signs - 24 hr 10/23/17 10/24/17 10/24/17 13:45 00:30 07:07 Temperature 98 F 98.9 F Pulse Rate 71 57 L Respiratory 20 18 18 Rate Blood Pressure 107/72 108/75 Allergies/Adverse Reactions: Allergies Allergy/AdvReac Type Severity Reaction Status Date / Time No Known Allergies Allergy Verified 10/23/17 13:46 Date of last physical exam: 10/19/17 Concur with the findings of this exam: Yes - Substance Abuse/Tx History Hx Alcohol Use: Yes Hx Substance Use: Yes Substance Use Type: Alcohol (Started drinking alcohol at age 12, consumes 3x 6pk of beer daily. Last drank on 10/19/17), Cocaine (Started smoking crack cocaine at age 25, consumes $100 worth 1-2 times weekly. Last smoked on 10/12/17) Hx Substance Use Treatment: Yes (5 previous inpt detox & 2 inpt rehab admissions @ [facility]) Mental Status Exam - Mental Status Exam Alert and Oriented to: Time, Place, Person Cognitive Function: Fair Patient Appearance: Well Groomed Mood: Depressed Affect: Appropriate Patient Behavior: Cooperative Speech Pattern: Clear Voice Loudness: Normal Thought Process: Intact Thought Disorder: Not Present Hallucinations: Denies Suicidal Ideation: Denies Homicidal Ideation: Denies Insight/Judgement: Fair Sleep: Poorly Appetite: Poor Muscle strength/Tone: Normal Gait/Station: Normal Psychiatric Findings - Problem List ([place] 1, 2,3) (1) Alcohol dependence Current Visit: Yes Status: Acute (2) Cocaine dependence Current Visit: No Status: Chronic Qualifiers: Substance use status: uncomplicated Qualified Code(s): F14.20 - Cocaine dependence, uncomplicated (3) Cannabis dependence Current Visit: No Status: Acute (4) Nicotine dependence Current Visit: No Status: Chronic Qualifiers: Nicotine product type: cigarettes Substance use status: in withdrawal Qualified Code(s): F17.213 - Nicotine dependence, cigarettes, with withdrawal (5) Schizoaffective disorder Current Visit: Yes Status: Chronic (6) Stented coronary artery Current Visit: No Status: Chronic (7) Asthma Current Visit: No Status: Chronic Qualifiers: Asthma severity: mild Asthma persistence: intermittent Asthma complication type: with status asthmaticus Qualified Code(s): J45.22 - Mild intermittent asthma with status asthmaticus (8) HTN (hypertension) Current Visit: No Status: Chronic Qualifiers: Hypertension type: essential hypertension (9) Human immunodeficiency virus infection Current Visit: No Status: Chronic Comment: not compliant with his medication. (10) PPD positive Current Visit: No Status: Resolved Comment: hx of PPD + - Initial Treatment Plan Initial Treatment Plan: Monitor progress
[2017-10-24] MEDS: MELATONIN 5 MG TABLETS PO PRN (21:38)
[2017-10-24] MEDS: ATORVASTATIN CA 80 MG TABLET (FP) PO SCH (21:38)
[2017-10-24] MEDS: THIAMINE HCL 100 MG TABLET (FP) PO SCH (21:38)
[2017-10-25] MEDS: PRENATAL VITAMINS W/ FOLIC ACID TABLET (FP) PO SCH (10:10)
[2017-10-25] MEDS: ASPIRIN 81 MG CHEWABLE TABLETS PO SCH (10:11)
[2017-10-25] MEDS: TICAGRELOR 90 MG TABLET PO SCH ×2 (10:11→21:44)
[2017-10-25] MEDS: LOSARTAN POTASSIUM 25 MG TABLET PO SCH (10:12)
[2017-10-25] MEDS: metoPROLOL SUCCINATE 25 MG TAB.SR.24H (FP) PO SCH (10:12)
[2017-10-25] MEDS: NICOTINE 21 MG/24 HOURS TOPICAL PATCH TD SCH (10:12)
[2017-10-25] MEDS: ELVITEG/COB/EMTRI/TENOF (GENVOYA) TABLET (NF) PO SCH (10:12)
--- NOTE | 2017-10-25 14:09 | PN ---
S Progress Note Note: Vital Signs Temperature 97.6 F 10/25/17 07:01 Pulse Rate 59 L 10/25/17 07:01 Respiratory Rate 18 10/25/17 07:01 Blood Pressure 114/73 10/25/17 07:01 O2 Sat by Pulse Oximetry (%) Patient requested Ensure. Ensure not medically necessary at this time, patient BMI = 30.3 and with stable labs. Patient made are and verbalizes understanding.
[2017-10-25] MEDS: ATORVASTATIN CA 80 MG TABLET (FP) PO SCH (21:44)
[2017-10-25] MEDS: MELATONIN 5 MG TABLETS PO PRN (21:44)
[2017-10-25] MEDS: THIAMINE HCL 100 MG TABLET (FP) PO SCH (21:44)
[2017-10-26] MEDS: TICAGRELOR 90 MG TABLET PO SCH ×2 (10:29→21:46)
[2017-10-26] MEDS: ASPIRIN 81 MG CHEWABLE TABLETS PO SCH (10:29)
[2017-10-26] MEDS: metoPROLOL SUCCINATE 25 MG TAB.SR.24H (FP) PO SCH (10:30)
[2017-10-26] MEDS: ELVITEG/COB/EMTRI/TENOF (GENVOYA) TABLET (NF) PO SCH (10:30)
[2017-10-26] MEDS: LOSARTAN POTASSIUM 25 MG TABLET PO SCH (10:30)
[2017-10-26] MEDS: NICOTINE 21 MG/24 HOURS TOPICAL PATCH TD SCH (10:31)
[2017-10-26] MEDS: PRENATAL VITAMINS W/ FOLIC ACID TABLET (FP) PO SCH (10:31)
[2017-10-26] MEDS: MELATONIN 5 MG TABLETS PO PRN (21:46)
[2017-10-26] MEDS: ATORVASTATIN CA 80 MG TABLET (FP) PO SCH (21:46)
[2017-10-26] MEDS: THIAMINE HCL 100 MG TABLET (FP) PO SCH (21:46)
[2017-10-27] MEDS: ASPIRIN 81 MG CHEWABLE TABLETS PO SCH (10:17)
[2017-10-27] MEDS: metoPROLOL SUCCINATE 25 MG TAB.SR.24H (FP) PO SCH (10:17)
[2017-10-27] MEDS: TICAGRELOR 90 MG TABLET PO SCH ×2 (10:17→21:49)
[2017-10-27] MEDS: PRENATAL VITAMINS W/ FOLIC ACID TABLET (FP) PO SCH (10:18)
[2017-10-27] MEDS: LOSARTAN POTASSIUM 25 MG TABLET PO SCH (10:18)
[2017-10-27] MEDS: NICOTINE 21 MG/24 HOURS TOPICAL PATCH TD SCH (10:18)
[2017-10-27] MEDS: ELVITEG/COB/EMTRI/TENOF (GENVOYA) TABLET (NF) PO SCH (10:18)
[2017-10-27] MEDS: ARTIFICIAL TEARS (POLYVINYL ALCOHOL) OPTH DROPS OU PRN (10:19)
[2017-10-27] MEDS: THIAMINE HCL 100 MG TABLET (FP) PO SCH (21:49)
[2017-10-27] MEDS: MELATONIN 5 MG TABLETS PO PRN (21:49)
[2017-10-27] MEDS: ATORVASTATIN CA 80 MG TABLET (FP) PO SCH (21:49)
[2017-10-28] MEDS: LOSARTAN POTASSIUM 25 MG TABLET PO SCH (10:27)
[2017-10-28] MEDS: metoPROLOL SUCCINATE 25 MG TAB.SR.24H (FP) PO SCH (10:27)
[2017-10-28] MEDS: ASPIRIN 81 MG CHEWABLE TABLETS PO SCH (10:27)
[2017-10-28] MEDS: TICAGRELOR 90 MG TABLET PO SCH ×2 (10:28→21:51)
[2017-10-28] MEDS: ELVITEG/COB/EMTRI/TENOF (GENVOYA) TABLET (NF) PO SCH (10:28)
[2017-10-28] MEDS: PRENATAL VITAMINS W/ FOLIC ACID TABLET (FP) PO SCH (10:28)
[2017-10-28] MEDS: ARTIFICIAL TEARS (POLYVINYL ALCOHOL) OPTH DROPS OU PRN (10:28)
[2017-10-28] MEDS: NICOTINE 21 MG/24 HOURS TOPICAL PATCH TD SCH (10:29)
[2017-10-28] MEDS: ATORVASTATIN CA 80 MG TABLET (FP) PO SCH (21:51)
[2017-10-28] MEDS: THIAMINE HCL 100 MG TABLET (FP) PO SCH (21:51)
[2017-10-28] MEDS: MELATONIN 5 MG TABLETS PO PRN (21:52)
[2017-10-29] MEDS: ASPIRIN 81 MG CHEWABLE TABLETS PO SCH (11:18)
[2017-10-29] MEDS: TICAGRELOR 90 MG TABLET PO SCH ×2 (11:18→21:44)
[2017-10-29] MEDS: LOSARTAN POTASSIUM 25 MG TABLET PO SCH (11:19)
[2017-10-29] MEDS: ELVITEG/COB/EMTRI/TENOF (GENVOYA) TABLET (NF) PO SCH (11:19)
[2017-10-29] MEDS: PRENATAL VITAMINS W/ FOLIC ACID TABLET (FP) PO SCH (11:19)
[2017-10-29] MEDS: metoPROLOL SUCCINATE 25 MG TAB.SR.24H (FP) PO SCH (11:19)
[2017-10-29] MEDS: NICOTINE 21 MG/24 HOURS TOPICAL PATCH TD SCH (11:19)
[2017-10-29] MEDS: MELATONIN 5 MG TABLETS PO PRN (21:44)
[2017-10-29] MEDS: THIAMINE HCL 100 MG TABLET (FP) PO SCH (21:44)
[2017-10-29] MEDS: ATORVASTATIN CA 80 MG TABLET (FP) PO SCH (21:44)
[2017-10-30] MEDS: TICAGRELOR 90 MG TABLET PO SCH ×2 (10:52→21:31)
[2017-10-30] MEDS: NICOTINE 21 MG/24 HOURS TOPICAL PATCH TD SCH (10:52)
[2017-10-30] MEDS: metoPROLOL SUCCINATE 25 MG TAB.SR.24H (FP) PO SCH (10:52)
[2017-10-30] MEDS: LOSARTAN POTASSIUM 25 MG TABLET PO SCH (10:52)
[2017-10-30] MEDS: PRENATAL VITAMINS W/ FOLIC ACID TABLET (FP) PO SCH (10:52)
[2017-10-30] MEDS: ASPIRIN 81 MG CHEWABLE TABLETS PO SCH (10:53)
[2017-10-30] MEDS: ELVITEG/COB/EMTRI/TENOF (GENVOYA) TABLET (NF) PO SCH (10:53)
[2017-10-30] MEDS: ARTIFICIAL TEARS (POLYVINYL ALCOHOL) OPTH DROPS OU PRN (10:54)
[2017-10-30] MEDS: ATORVASTATIN CA 80 MG TABLET (FP) PO SCH (21:31)
[2017-10-30] MEDS: THIAMINE HCL 100 MG TABLET (FP) PO SCH (21:31)
[2017-10-30] MEDS: MELATONIN 5 MG TABLETS PO PRN (21:32)
[2017-10-31] MEDS: metoPROLOL SUCCINATE 25 MG TAB.SR.24H (FP) PO SCH (10:34)
[2017-10-31] MEDS: ELVITEG/COB/EMTRI/TENOF (GENVOYA) TABLET (NF) PO SCH (10:34)
[2017-10-31] MEDS: ASPIRIN 81 MG CHEWABLE TABLETS PO SCH (10:34)
[2017-10-31] MEDS: TICAGRELOR 90 MG TABLET PO SCH ×2 (10:35→21:26)
[2017-10-31] MEDS: NICOTINE 21 MG/24 HOURS TOPICAL PATCH TD SCH (10:35)
[2017-10-31] MEDS: PRENATAL VITAMINS W/ FOLIC ACID TABLET (FP) PO SCH (10:35)
[2017-10-31] MEDS: LOSARTAN POTASSIUM 25 MG TABLET PO SCH (10:35)
[2017-10-31] MEDS: ARTIFICIAL TEARS (POLYVINYL ALCOHOL) OPTH DROPS OU PRN (10:38)
[2017-10-31] MEDS: ATORVASTATIN CA 80 MG TABLET (FP) PO SCH (21:26)
[2017-10-31] MEDS: MELATONIN 5 MG TABLETS PO PRN (21:26)
[2017-10-31] MEDS: THIAMINE HCL 100 MG TABLET (FP) PO SCH (21:26)
[2017-11-01] MEDS: ELVITEG/COB/EMTRI/TENOF (GENVOYA) TABLET (NF) PO SCH (10:36)
[2017-11-01] MEDS: NICOTINE 21 MG/24 HOURS TOPICAL PATCH TD SCH (10:36)
[2017-11-01] MEDS: PRENATAL VITAMINS W/ FOLIC ACID TABLET (FP) PO SCH (10:36)
[2017-11-01] MEDS: metoPROLOL SUCCINATE 25 MG TAB.SR.24H (FP) PO SCH (10:36)
[2017-11-01] MEDS: TICAGRELOR 90 MG TABLET PO SCH ×2 (10:36→21:47)
[2017-11-01] MEDS: ASPIRIN 81 MG CHEWABLE TABLETS PO SCH (10:36)
[2017-11-01] MEDS: LOSARTAN POTASSIUM 25 MG TABLET PO SCH (11:07)
[2017-11-01] MEDS: ATORVASTATIN CA 80 MG TABLET (FP) PO SCH (21:46)
[2017-11-01] MEDS: THIAMINE HCL 100 MG TABLET (FP) PO SCH (21:46)
[2017-11-01] MEDS: ARTIFICIAL TEARS (POLYVINYL ALCOHOL) OPTH DROPS OU PRN (21:47)
[2017-11-01] MEDS: MELATONIN 5 MG TABLETS PO PRN (21:48)
[2017-11-02] MEDS: ASPIRIN 81 MG CHEWABLE TABLETS PO SCH (10:18)
[2017-11-02] MEDS: TICAGRELOR 90 MG TABLET PO SCH ×2 (10:18→21:28)
[2017-11-02] MEDS: LOSARTAN POTASSIUM 25 MG TABLET PO SCH (10:18)
[2017-11-02] MEDS: metoPROLOL SUCCINATE 25 MG TAB.SR.24H (FP) PO SCH (10:18)
[2017-11-02] MEDS: ELVITEG/COB/EMTRI/TENOF (GENVOYA) TABLET (NF) PO SCH (10:19)
[2017-11-02] MEDS: PRENATAL VITAMINS W/ FOLIC ACID TABLET (FP) PO SCH (10:20)
[2017-11-02] MEDS: NICOTINE 21 MG/24 HOURS TOPICAL PATCH TD SCH (10:20)
--- NOTE | 2017-11-02 14:15 | PN ---
S Progress Note (SOAP) Subjective: C/o increased mucous in throat w/ cough x 1 day. Denies chest pain, SOB. Objective: 11/02/17 14:13 A&O x3. Throat w/ whitish PND. No lesions or increased erythema. (+) nasal congestion. Lungs CTA. Vital Signs 11/02/17 11/02/17 07:12 09:00 Temperature 98.0 F Pulse Rate 53 L 64 Respiratory 18 Rate Blood Pressure 109/75 116/74 Assessment: Early remission poly-substance use disorder Nasal congestion w/ post-nasal drip. Plan: Continue rehab. Start on Sudafed 60 mg PO TID. Encourage water intake.
[2017-11-02] MEDS: ATORVASTATIN CA 80 MG TABLET (FP) PO SCH (21:28)
[2017-11-02] MEDS: THIAMINE HCL 100 MG TABLET (FP) PO SCH (21:28)
[2017-11-02] MEDS: MELATONIN 5 MG TABLETS PO PRN (21:28)
[2017-11-02] MEDS: PSEUDOEPHEDRINE HCL 60 MG TABLET PO SCH (22:44)
[2017-11-03] MEDS: PSEUDOEPHEDRINE HCL 60 MG TABLET PO SCH ×3 (07:11→21:53)
[2017-11-03] MEDS: NICOTINE 21 MG/24 HOURS TOPICAL PATCH TD SCH (10:27)
[2017-11-03] MEDS: LOSARTAN POTASSIUM 25 MG TABLET PO SCH (10:27)
[2017-11-03] MEDS: metoPROLOL SUCCINATE 25 MG TAB.SR.24H (FP) PO SCH (10:27)
[2017-11-03] MEDS: ASPIRIN 81 MG CHEWABLE TABLETS PO SCH (10:27)
[2017-11-03] MEDS: PRENATAL VITAMINS W/ FOLIC ACID TABLET (FP) PO SCH (10:27)
[2017-11-03] MEDS: TICAGRELOR 90 MG TABLET PO SCH ×2 (10:29→21:52)
[2017-11-03] MEDS: ARTIFICIAL TEARS (POLYVINYL ALCOHOL) OPTH DROPS OU PRN (10:29)
[2017-11-03] MEDS: ELVITEG/COB/EMTRI/TENOF (GENVOYA) TABLET (NF) PO SCH (10:30)
[2017-11-03] MEDS: THIAMINE HCL 100 MG TABLET (FP) PO SCH (21:52)
[2017-11-03] MEDS: ATORVASTATIN CA 80 MG TABLET (FP) PO SCH (21:53)
[2017-11-03] MEDS: MELATONIN 5 MG TABLETS PO PRN (21:54)
[2017-11-04] MEDS: PSEUDOEPHEDRINE HCL 60 MG TABLET PO SCH ×3 (06:20→21:25)
[2017-11-04] MEDS: metoPROLOL SUCCINATE 25 MG TAB.SR.24H (FP) PO SCH (10:29)
[2017-11-04] MEDS: LOSARTAN POTASSIUM 25 MG TABLET PO SCH (10:29)
[2017-11-04] MEDS: ELVITEG/COB/EMTRI/TENOF (GENVOYA) TABLET (NF) PO SCH (10:29)
[2017-11-04] MEDS: ASPIRIN 81 MG CHEWABLE TABLETS PO SCH (10:29)
[2017-11-04] MEDS: TICAGRELOR 90 MG TABLET PO SCH ×2 (10:29→21:25)
[2017-11-04] MEDS: PRENATAL VITAMINS W/ FOLIC ACID TABLET (FP) PO SCH (10:31)
[2017-11-04] MEDS: NICOTINE 21 MG/24 HOURS TOPICAL PATCH TD SCH (10:31)
[2017-11-04] MEDS: ARTIFICIAL TEARS (POLYVINYL ALCOHOL) OPTH DROPS OU PRN (14:45)
[2017-11-04] MEDS: ATORVASTATIN CA 80 MG TABLET (FP) PO SCH (21:25)
[2017-11-04] MEDS: THIAMINE HCL 100 MG TABLET (FP) PO SCH (21:25)
[2017-11-04] MEDS: MELATONIN 5 MG TABLETS PO PRN (21:26)
[2017-11-05 07:23] VITALS: BP 114/83; PULSE 59; TEMP 97.9
[2017-11-05] MEDS: LOSARTAN POTASSIUM 25 MG TABLET PO SCH (10:37)
[2017-11-05] MEDS: PRENATAL VITAMINS W/ FOLIC ACID TABLET (FP) PO SCH (10:37)
[2017-11-05] MEDS: TICAGRELOR 90 MG TABLET PO SCH ×2 (10:37→21:21)
[2017-11-05] MEDS: ASPIRIN 81 MG CHEWABLE TABLETS PO SCH (10:37)
[2017-11-05] MEDS: NICOTINE 21 MG/24 HOURS TOPICAL PATCH TD SCH (10:37)
[2017-11-05] MEDS: metoPROLOL SUCCINATE 25 MG TAB.SR.24H (FP) PO SCH (10:37)
[2017-11-05] MEDS: ELVITEG/COB/EMTRI/TENOF (GENVOYA) TABLET (NF) PO SCH (10:38)
--- NOTE | 2017-11-05 11:21 | PN ---
Psychiatric Progress Note Vital Signs: Vital Signs Period Temp Pulse Resp BP Sys/Shoemaker Pulse Ox Last 24 Hr 97.9 F 59 18-18 114/83 Date of Session: 11/05/17 Chief Complaint:: Discharge Note HPI: Patient addressing Alcohol Cocaine and Cannabis Dependence comorbid with Nicotine Dependence and Schizoaffective Disorder ROS: Asthma, HTN, CAD with stent, HIV+, PPD+ treated were medically managed Current Medications: Active Medications Generic Name Dose Route Start Last Admin Trade Name Freq PRN Reason Stop Dose Admin Acetaminophen 650 mg 10/23/17 14:14 10/29/17 19:04 Tylenol - PO 650 mg Q4H PRN Administration FEVER Al Hydroxide/Mg Hydroxide 30 ml 10/23/17 14:14 Mylanta Oral Suspension - PO Q6H PRN DYSPEPSIA Albuterol Sulfate 2 puff 10/23/17 14:15 Ventolin Hfa Inhaler - IH Q4H PRN ASTHMA Artificial Tears 1 drop 10/23/17 15:26 11/04/17 14:45 Artificial Tears OU 1 drop TID PRN Administration DRY EYES Aspirin 81 mg 10/24/17 10:00 11/05/17 10:37 Asa - PO 81 mg DAILY JHONATAN Administration Atorvastatin Calcium 80 mg 10/23/17 22:00 11/04/17 21:25 Lipitor - PO 80 mg HS JHONATAN Administration Elvitegravir/Cobicis/Emtricit/Tenof 1 tab 10/24/17 10:00 11/05/17 10:38 Genvoya (Non-Formulary) PO 1 tab DAILY JHONATAN Administration Eucalyptus/Menthol/Phenol/Sorbitol 1 each 10/23/17 14:14 Cepastat Lozenge - MM Q4H PRN SORE THROAT Guaifenesin 10 ml 10/23/17 14:14 Robitussin Dm - PO Q6H PRN COUGH Hydroxyzine Pamoate 50 mg 10/23/17 14:14 Vistaril - PO Q4H PRN AGITATION Loperamide HCl 4 mg 10/23/17 14:14 Imodium - PO Q6H PRN DIARRHEA Losartan Potassium 25 mg 10/24/17 10:00 11/05/17 10:37 Cozaar - PO 25 mg DAILY JHONATAN Administration Magnesium Citrate 300 ml 10/23/17 14:14 Citroma - PO Q48H PRN CONSTIPATION Magnesium Hydroxide 30 ml 10/23/17 14:14 Milk Of Magnesia - PO DAILY PRN CONSTIPATION Melatonin 5 mg 10/23/17 22:00 11/04/17 21:26 Melatonin PO 5 mg HS PRN Administration INSOMNIA Metoprolol Succinate 25 mg 10/24/17 10:00 11/05/17 10:37 Toprol Xl - PO 25 mg DAILY JHONATAN Administration Nicotine 21 mg 10/24/17 10:00 11/05/17 10:37 Nicoderm Patch - TD Not Given DAILY JHONATAN Nicotine Polacrilex 2 mg 10/23/17 15:24 Nicorette Gum - BUC Q2H PRN NICOTINE REPLACEMENT RX Multivit/Folic Acid/Iron 1 tab 10/24/17 10:00 11/05/17 10:37 Vitamins (Sjr) - PO Not Given DAILY JHONATAN Pseudoephedrine/Triprolidine 1 combo 10/23/17 14:14 Actifed - PO TID PRN NASAL CONGESTION Thiamine HCl 100 mg 10/23/17 22:00 11/04/17 21:25 Vitamin B1 - PO 100 mg HS JHONATAN Administration Ticagrelor 90 mg 10/23/17 22:00 11/05/17 10:37 Brilinta - PO 90 mg BID JHONATAN Administration Current Side Effect: No Lab tests ordered: Yes Lab tests reviewed: Yes Provider note:: Patient will complete this program on 11/06/17. He has met his treatment goals and will continue to address his issues in outpatient treatment at [facility]. Told television script writer that from his participation in this program, he has learned that it is not just to talk, to talk, he has to walk to walk. He is stable for discharge on 11/06/17 Total face to face time:: 35 Mental Status Exam - Mental Status Exam Alert and Oriented to: Time, Place Cognitive Function: Fair Patient Appearance: Well Groomed Mood: Hopeful, Euthymic Affect: Appropriate Patient Behavior: Cooperative Speech Pattern: Clear Voice Loudness: Normal Thought Process: Intact Thought Disorder: Not Present Hallucinations: Denies Suicidal Ideation: Denies Homicidal Ideation: Denies Insight/Judgement: Fair Sleep: Fair Appetite: Good Muscle strength/Tone: Normal Gait/Station: Normal Psychiatric Treatment Plan - Problem List (1) Alcohol dependence Current Visit: Yes (2) Cocaine dependence Current Visit: No Qualifiers: Substance use status: uncomplicated Qualified Code(s): F14.20 - Cocaine dependence, uncomplicated (3) Cannabis dependence Current Visit: No (4) Nicotine dependence Current Visit: No Qualifiers: Nicotine product type: cigarettes Substance use status: in withdrawal Qualified Code(s): F17.213 - Nicotine dependence, cigarettes, with withdrawal (5) Schizoaffective disorder Current Visit: Yes (6) Stented coronary artery Current Visit: No (7) Asthma Current Visit: No Qualifiers: Asthma severity: mild Asthma persistence: intermittent Asthma complication type: with status asthmaticus Qualified Code(s): J45.22 - Mild intermittent asthma with status asthmaticus (8) HTN (hypertension) Current Visit: No Qualifiers: Hypertension type: essential hypertension Qualified Code(s): I10 - Essential (primary) hypertension (9) Human immunodeficiency virus infection Current Visit: No Comment: not compliant with his medication. (10) PPD positive Current Visit: No Comment: hx of PPD + Initial treatment plan: Patient will be discharged tomorrow and referred to [facility] CD for outpatient program.
--- NOTE | 2017-11-05 15:14 | PN ---
S Progress Note Note: PT REQUESTS REVIEW OF CXR. ALERT O X 3. NAD. SCHEDULED FOR DISCHARGE IN THE MORNING. PT REPORTS HE HAS PRIMARY CARE AT [facility] AT [id number] [facility]. PH; [phone]. PT STATES HE DOES NOT NEED RX AT THIS TIME BECAUSE OWN MEDS AT HOME. REPORTS GOING HOME BUT FOLLOWING UP WITH AFTERCARE AT [facility](SEE COUNSELOR'S DISCHARGE PLANNING NOTES). CXR RE: HX PPD+ = NO ACUTE CHEST PATHOLOGY A COPY GIVEN TO PATIENT FOR HIS PMD RECORD
[2017-11-05] MEDS: MELATONIN 5 MG TABLETS PO PRN (21:21)
[2017-11-05] MEDS: ATORVASTATIN CA 80 MG TABLET (FP) PO SCH (21:21)
[2017-11-05] MEDS: THIAMINE HCL 100 MG TABLET (FP) PO SCH (21:21)
== END 2017-11-06 06:30 | disposition home or self-care (01) | DRG 772 ==
LOC: YASAS 12:59 → Y5N 13:00
PROVIDERS: ADMIT Psychiatry & Neurology Psychiatry; ATTEND Psychiatry & Neurology Psychiatry
PROC: HZ42ZZZ Group Counseling for Substance Abuse Treatment, Cognitive-Behavioral (ICD-10-PCS; principal; 2017-10-23)
DX: F10.20 Alcohol dependence, uncomplicated (principal); F14.20 Cocaine dependence, uncomplicated; F12.20 Cannabis dependence, uncomplicated; F17.213 Nicotine dependence, cigarettes, with withdrawal; F25.9 Schizoaffective disorder, unspecified; I10 Essential (primary) hypertension; J45.22 Mild intermittent asthma with status asthmaticus; Z21 Asymptomatic human immunodeficiency virus [HIV] infection status; R76.11 Nonspecific reaction to tuberculin skin test without active tuberculosis; I25.10 Atherosclerotic heart disease of native coronary artery without angina pectoris; R09.82 Postnasal drip; R09.81 Nasal congestion; Z95.5 Presence of coronary angioplasty implant and graft

== ENCOUNTER 2018-04-07 11:44 | Inpatient (IN) | payer OTHER ==
[2018-04-07 12:03] VITALS: BMI 29.1
--- NOTE | 2018-04-07 12:49 | HP ---
CIWA Score Nausea/Vomitin Muscle Tremors: 2 Anxiety: 2 Agitation: 2 Paroxysmal Sweats: 1-Minimal Palms Moist Orientation: 0-Oriented Tacttile Disturbances: 1-Very Mild Itch/Numbness Auditory Disturbances: 1-Very Mild Visual Disturbances: 0-None Headache: 2-Mild CIWA-Ar Total Score: 13 - Admission Criteria OASAS Guidelines: Admission for Medically Managed Detox: Requires at least one of the followin. CIWA greater than 12 2. Seizures within the past 24 hours 3. Delirium tremens within the past 24 hours 4. Hallucinations within the past 24 hours 5. Acute intervention needed for co occurring medical disorder 6. Acute intervention needed for co occurring psychiatric disorder 7. Severe withdrawal that cannot be handled at a lower level of care (continued vomiting, continued diarrhea, abnormal vital signs) requiring intravenous medication and/or fluids 8. Patient presents the following: CIWA greater than 12 Admission Criteria Met: Admission criteria met Admission ROS [facility] Chief Complaint: i am here for detox from alcohol,cocaine and marijuana Allergies/Adverse Reactions: Allergies Allergy/AdvReac Type Severity Reaction Status Date / Time No Known Allergies Allergy Verified 04/07/18 15:24 History of Present Illness: this 57 years old male with alcohol,cocaine and marijuana dependence seeking detox,withdrawal symptom, multiple admissions but keep relapsing last treatment [facility] 10/19/17 to 10/23/17 history of hypertension,asthma,mi in 05/22 hiv since 2002 nicotine dependence 10 cigarette/day asthma longest sobriety 2 months plan for rehab after detox Exam Limitations: No Limitations - Ebola screening Have you traveled outside of the country in the last 21 days: No (N) Have you had contact with anyone from an Ebola affected area: No Have you been sick,other than usual withdrawal symptoms: No Do you have a fever: No - Review of Systems Constitutional: Loss of Appetite, Malaise, Night Sweats, Changes in sleep, Weakness EENT: reports: Tearing, Nose Congestion Respiratory: reports: No Symptoms reported, Other (asthma) Cardiac: reports: No Symptoms Reported GI: reports: Nausea, Vomiting, Abdominal cramping : reports: No Symptoms Reported Musculoskeletal: reports: Back Pain, Muscle Pain Integumentary: reports: Dryness Neuro: reports: Headache, Tremors Endocrine: reports: No Symptoms Reported Hematology: reports: No Symptoms Reported, Other (hiv since 2002) Psychiatric: reports: No Sypmtoms Reported, Judgement Intact, Mood/Affect Appropiate, Orientated x3, Agitated Patient History - Patient Medical History Hx Anemia: No Hx Asthma: Yes (on inhaler) Hx Chronic Obstructive Pulmonary Disease (COPD): No Hx Cancer: No Hx Cardiac Disorders: Yes (hx WA May 2016) Hx Congestive Heart Failure: No Hx Hypertension: No Hx Hypercholesterolemia: No Hx Pacemaker: No HX Cerebrovascular Accident: No Hx Seizures: No Hx Dementia: No Hx Diabetes: No Hx Gastrointestinal Disorders: No Hx Liver Disease: No Hx Genitourinary Disorders: No Hx Sexually Transmitted Disorders: No Hx Renal Disease (ESRD): No Hx Thyroid Disease: No Hx Human Immunodeficiency Virus (HIV): Yes (2002, LAST CD4 -400, vl- undetectable , no OI's ) Hx Hepatitis C: No Hx Depression: No Hx Suicide Attempt: No (denies) Hx Bipolar Disorder: No Hx Schizophrenia: No Other Medical History: no sucidal,no homicidal - Patient Surgical History Past Surgical History: No Hx Neurologic Surgery: No Hx Cataract Extraction: No Hx Cardiac Surgery: No Hx Lung Surgery: No Hx Breast Surgery: No Hx Breast Biopsy: No Hx Abdominal Surgery: No Hx Appendectomy: No Hx Cholecystectomy: No Hx Genitourinary Surgery: No Hx Section: No Hx Orthopedic Surgery: No Anesthesia Reaction: No - PPD History Documented Results: Positive w/proof Implanted On Prior R Admission?: No PPD to be Administered?: No - Smoking Cessation Smoking history: Current every day smoker Have you smoked in the past 12 months: Yes Aproximately how many cigarettes per day: 10 Cigars Per Day: 0 Hx Chewing Tobacco Use: No Initiated information on smoking cessation: Yes 'Breaking Loose' booklet given: 04/07/18 - Substance & Tx. History Hx Alcohol Use: Yes Hx Substance Use: Yes Substance Use Type: Alcohol, Cocaine, Marijuana Hx Substance Use Treatment: Yes ([facility] 10/19/17 to 10/23/17 detox,rehab 10/23/17 to 11/06/17 rehab) - Substances Abused Alcohol Route: Oral Frequency: Daily Amount used: 3 of 6 packs of 16 ozsof beer Age of first use: 12 Date of Last Use: 04/07/18 Cocaine Route: Smoking Frequency: 1-3 times last 30 days Amount used: 100$ Age of first use: 25 Date of Last Use: 04/05/18 Marijuana/Hashish Route: Smoking Frequency: Daily Amount used: 5 $ Age of first use: 11 Date of Last Use: 04/07/18 Family Disease History - Family Disease History Family Disease History: Other: Mother (alcohol) Admission Physical Exam BHS - Vital Signs Vital Signs: Vital Signs - 24 hr 04/07/18 12:01 Temperature 97.8 F Pulse Rate 70 Respiratory 18 Rate Blood Pressure 103/74 - Physical General Appearance: Yes: Moderate Distress, Tremorous, Irritable, Sweating, Anxious HEENTM: Yes: Normal ENT Inspection, ARTI, Pharynx Normal Respiratory: Yes: Within Normal Limits, Lungs Clear, Normal Breath Sounds Neck: Yes: Within Normal Limits, Supple, Trachea in good position Breast: Yes: Within Normal Limits Cardiology: Yes: Within Normal Limits, Regular Rhythm, Regular Rate, S1, S2 Abdominal: Yes: Within Normal Limits, Normal Bowel Sounds, Non Tender, Flat, Soft Genitourinary: Yes: Within Normal Limits Back: Yes: Muscle Spasm Musculoskeletal: Yes: full range of Motion, Back pain, Muscle Pain Extremities: Yes: Within Normal Limits, Normal Range of Motion, Tremors Neurological: Yes: cooling machine operator II-XII NML intact, Fully Oriented, Alert, Motor Strength 5/5 Integumentary: Yes: Dry Lymphatic: Yes: Within Normal Limits - Diagnostic (1) Alcohol dependence with withdrawal Current Visit: No Status: Acute Qualifiers: Complication of substance-induced condition: uncomplicated Qualified Code(s ): F10.230 - Alcohol dependence with withdrawal, uncomplicated (2) Syncope Current Visit: No Status: Active (3) Cannabis dependence Current Visit: No Status: Acute (4) Weight loss Current Visit: No Status: Acute (5) Cocaine dependence Current Visit: No Status: Chronic Qualifiers: Substance use status: uncomplicated Qualified Code(s): F14.20 - Cocaine dependence, uncomplicated (6) HTN (hypertension) Current Visit: No Status: Chronic Qualifiers: Hypertension type: essential hypertension Qualified Code(s): I10 - Essential (primary) hypertension (7) Human immunodeficiency virus infection Current Visit: No Status: Chronic Comment: not compliant with his medication. (8) Hypercholesterolemia Current Visit: No Status: Chronic (9) Nicotine dependence Current Visit: No Status: Chronic Qualifiers: Nicotine product type: cigarettes Substance use status: in withdrawal Qualified Code(s): F17.213 - Nicotine dependence, cigarettes, with withdrawal (10) Stented coronary artery Current Visit: No Status: Chronic (11) PPD positive Current Visit: No Status: Resolved Comment: hx of PPD + (12) History of WA (myocardial infarction) Current Visit: Yes Status: Acute Cleared for Admission [facility] - Detox or Rehab [facility] Level of Care: Medically Managed Detox Regimen/Protocol: Librium S Breath Alcohol Content Breath Alcohol Content: 0.022 Urine Drug Screen - Results Drug Screen Negative: No Urine Drug Screen Results: THC-Marijuana, ALCIDES-Cocaine Inpatient Rehab Admission - Rehab Decision to Admit Inpatient rehab admission?: No
[2018-04-07] MEDS ORDERED: P-EPHED 60MG/TRIPROLIDI 2.5MG TABLET PO PRN (13:05)
[2018-04-07] MEDS ORDERED: MAGNESIUM CITRATE 300 ML BOTTLE PO PRN (13:05)
[2018-04-07] MEDS ORDERED: MAGNESIUM HYDROX 2400MG/30ML ORAL SUSPENSION 30 ML CUP PO PRN (13:05)
[2018-04-07] MEDS ORDERED: chlordiazePOXIDE HCL 25 MG CAPSULE PO PRN (13:05)
[2018-04-07] MEDS ORDERED: IBUPROFEN 400 MG TABLET (FP) PO PRN (13:05)
[2018-04-07] MEDS ORDERED: guaiFENesin/D-METHORPHAN HB 10 ML UNIT-DOSE CUPS PO PRN (13:05)
[2018-04-07] MEDS ORDERED: hydrOXYzine PAMOATE 50 MG CAPSULE (FP) PO PRN (13:05)
[2018-04-07] MEDS ORDERED: ACETAMINOPHEN 325 MG TABLET (FP) PO PRN (13:05)
[2018-04-07] MEDS ORDERED: MENTHOL/PHENOL 1 EACH UD MM PRN (13:05)
[2018-04-07] MEDS ORDERED: LOPERAMIDE HCL 2 MG CAPSULE PO PRN (13:05)
[2018-04-07] MEDS ORDERED: MAG HYDROX/AL HYDROX/SIMETH 30 ML UNIT-DOSE CUP PO PRN (13:05)
[2018-04-07] MEDS ORDERED: ALBUTEROL SO4 8 GM HFA INHALER IH PRN (16:04)
[2018-04-07] MEDS: NICOTINE 21 MG/24 HOURS TOPICAL PATCH TD SCH (17:54)
[2018-04-07] MEDS: chlordiazePOXIDE HCL 25 MG CAPSULE PO SCH ×2 (17:54→22:34)
[2018-04-07] MEDS: TICAGRELOR 90 MG TABLET PO SCH (22:34)
[2018-04-07] MEDS: ATORVASTATIN CA 80 MG TABLET (FP) PO SCH (22:34)
[2018-04-07] MEDS: THIAMINE HCL 100 MG TABLET (FP) PO SCH (22:35)
[2018-04-07] MEDS: MELATONIN 5 MG TABLETS PO PRN (22:38)
[2018-04-08] MEDS: chlordiazePOXIDE HCL 25 MG CAPSULE PO SCH ×4 (05:27→22:09)
[2018-04-08 09:57] LABS: ALBUMIN 3.4 g/dl (3.4-5.0); ALK PHOS 61 U/L (45-117); ANION GAP 5 MMOL/L (8-16); BILIRUBIN,TOTAL 0.5 mg/dL (0.2-1); BLOOD UREA NITROGEN 11 mg/dL (7-18); CALCIUM 8.7 mg/dL (8.5-10.1); CHLORIDE 103 mmol/L (98-107); CO2 29 mmol/L (21-32); GLUCOSE,RANDOM 93 mg/dL (74-106); POTASSIUM 4.5 mmol/L (3.5-5.1); SGOT/AST 30 U/L (15-37); SGPT/ALT 36 U/L (13-61); SODIUM 137 mmol/L (136-145); TOT PROT 6.7 g/dl (6.4-8.2)
[2018-04-08] MEDS: metoPROLOL SUCCINATE 25 MG TAB.SR.24H (FP) PO SCH (10:26)
[2018-04-08] MEDS: NICOTINE 21 MG/24 HOURS TOPICAL PATCH TD SCH (10:26)
[2018-04-08] MEDS: ASPIRIN 81 MG CHEWABLE TABLETS PO SCH (10:26)
[2018-04-08] MEDS: TICAGRELOR 90 MG TABLET PO SCH ×2 (10:26→22:09)
[2018-04-08] MEDS: PRENATAL VITAMINS W/ FOLIC ACID TABLET (FP) PO SCH (10:26)
[2018-04-08] MEDS: ELVITEG/COB/EMTRI/TENOF (GENVOYA) TABLET (NF) PO SCH (10:30)
[2018-04-08 10:31] LABS: HEMATOCRIT 36.2 % (35.4-49); HEMOGLOBIN 12.4 GM/dL (11.7-16.9); MCHC 34.3 g/dl (32.0-35.9); MEAN CELL VOLUME 90.4 fl (80-96); MEAN PLT VOLUME 9.9 fl (7.5-11.1); PLATELET COUNT 129 K/MM3 (134-434); RDW 15.1 % (11.9-15.9); WHITE BLOOD COUNT 4.2 K/mm3 (4.0-10.0)
--- NOTE | 2018-04-08 11:08 | PN ---
BHS Progress Note Note: pt insist on being placed on a regular diet. he has managed his BP with medication as a precaution. this is what he stated and has discussed this with his PCP.
--- NOTE | 2018-04-08 11:08 | EKG ---
Test Reason : Blood Pressure : / mmHG Vent. Rate : 061 BPM Atrial Rate : 061 BPM P-R Int : 210 ms QRS Dur : 108 ms QT Int : 400 ms P-R-T Axes : 060 069 088 degrees QTc Int : 402 ms SINUS RHYTHM WITH 1ST DEGREE A-V BLOCK POSSIBLE LEFT ATRIAL ENLARGEMENT ANTEROLATERAL INFARCT (CITED ON OR BEFORE 25-AUG-2016) ABNORMAL ECG WHEN COMPARED WITH ECG OF 19-OCT-2017 16:35, T WAVE VARIATION Confirmed by MICHELE VILLEGAS MD ([id number]) on 04/08/2018 11:07:55 AM Referred By: Confirmed By:MICHELE VILLEGAS MD
[2018-04-08] MEDS ORDERED: ONDANSETRON *ODT* 4 MG TABLET SL PRN (12:37)
--- NOTE | 2018-04-08 12:39 | PN ---
S CIWA - CIWA Score Nausea/Vomitin Muscle Tremors: 3 Anxiety: 3 Agitation: 0-Normal Activity Paroxysmal Sweats: 3 Orientation: 0-Oriented Tacttile Disturbances: 0-None Auditory Disturbances: 0-None Visual Disturbances: 3-Moderate Sensitivity Headache: 0-None Present CIWA-Ar Total Score: 17 BHS Progress Note (SOAP) Subjective: Interrupted Sleep, Sweating, Vomiting, Fatigue, Tremors. Objective: PATIENT A & O X 3. IN NO ACUTE DISTRESS. 04/08/18 12:36 Vital Signs Temperature 97.5 F L 04/08/18 09:24 Pulse Rate 64 04/08/18 09:24 Respiratory Rate 18 04/08/18 09:24 Blood Pressure 110/76 04/08/18 09:24 O2 Sat by Pulse Oximetry (%) Laboratory Tests 04/08/18 04/08/18 04/08/18 07:00 07:00 07:00 WBC 4.2 RBC 4.00 Hgb 12.4 Hct 36.2 MCV 90.4 MCH 31.0 MCHC 34.3 RDW 15.1 Plt Count 129 L MPV 9.9 Sodium 137 Potassium 4.5 Chloride 103 Carbon Dioxide 29 Anion Gap 5 L BUN 11 Creatinine 1.0 Creat Clearance w eGFR > 60 Random Glucose 93 Calcium 8.7 Total Bilirubin 0.5 AST 30 ALT 36 Alkaline Phosphatase 61 Total Protein 6.7 Albumin 3.4 RPR Titer Nonreactive LABS NOTED. PATIENT HAS HAD LOW PLATELET LEVELS ON PREVIOUS DETOX ADMISSIONS. 04/08/18 12:39 Assessment: 04/08/18 12:37 WITHDRAWAL SYMPTOMS. THROMBOCYTOPENIA. 04/08/18 12:39 Plan: CONTINUE DETOX. PRN ZOFRAN SL FOR NAUSEA / VOMITING.
[2018-04-08] MEDS: LOSARTAN POTASSIUM 25 MG TABLET PO SCH (13:34)
[2018-04-08] MEDS: MELATONIN 5 MG TABLETS PO PRN (22:09)
[2018-04-08] MEDS: ATORVASTATIN CA 80 MG TABLET (FP) PO SCH (22:09)
[2018-04-08] MEDS: THIAMINE HCL 100 MG TABLET (FP) PO SCH (22:09)
[2018-04-09] MEDS: chlordiazePOXIDE HCL 25 MG CAPSULE PO SCH ×2 (05:56→10:53)
[2018-04-09] MEDS: metoPROLOL SUCCINATE 25 MG TAB.SR.24H (FP) PO SCH (10:51)
[2018-04-09] MEDS: ASPIRIN 81 MG CHEWABLE TABLETS PO SCH (10:51)
[2018-04-09] MEDS: ELVITEG/COB/EMTRI/TENOF (GENVOYA) TABLET (NF) PO SCH (10:51)
[2018-04-09] MEDS: PRENATAL VITAMINS W/ FOLIC ACID TABLET (FP) PO SCH (10:51)
[2018-04-09] MEDS: LOSARTAN POTASSIUM 25 MG TABLET PO SCH (10:51)
[2018-04-09] MEDS: TICAGRELOR 90 MG TABLET PO SCH ×2 (10:52→22:34)
[2018-04-09] MEDS: NICOTINE 21 MG/24 HOURS TOPICAL PATCH TD SCH (10:52)
--- NOTE | 2018-04-09 10:56 | PN ---
S CIWA - CIWA Score Nausea/Vomitin Muscle Tremors: 2 Anxiety: 2 Agitation: 2 Paroxysmal Sweats: 1-Minimal Palms Moist Orientation: 0-Oriented Tacttile Disturbances: 1-Very Mild Itch/Numbness Auditory Disturbances: 1-Very Mild Visual Disturbances: 0-None Headache: 2-Mild CIWA-Ar Total Score: 13 BHS Progress Note (SOAP) Subjective: alert,irritable.anxious,interrupted sleep,tremor.aching pain Objective: 04/09/18 10:55 Vital Signs Temperature 97.2 F L 04/09/18 09:28 Pulse Rate 65 04/09/18 09:28 Respiratory Rate 18 04/09/18 09:28 Blood Pressure 109/78 04/09/18 09:28 O2 Sat by Pulse Oximetry (%) Laboratory Last Values WBC 4.2 K/mm3 (4.0-10.0) 04/08/18 07:00 RBC 4.00 M/mm3 (4.00-5.60) 04/08/18 07:00 Hgb 12.4 GM/dL (11.7-16.9) 04/08/18 07:00 Hct 36.2 % (35.4-49) 04/08/18 07:00 MCV 90.4 fl (80-96) 04/08/18 07:00 MCH 31.0 pg (25.7-33.7) 04/08/18 07:00 MCHC 34.3 g/dl (32.0-35.9) 04/08/18 07:00 RDW 15.1 % (11.9-15.9) 04/08/18 07:00 Plt Count 129 K/MM3 (134-434) L 04/08/18 07:00 MPV 9.9 fl (7.5-11.1) 04/08/18 07:00 Sodium 137 mmol/L (136-145) 04/08/18 07:00 Potassium 4.5 mmol/L (3.5-5.1) 04/08/18 07:00 Chloride 103 mmol/L (98-107) 04/08/18 07:00 Carbon Dioxide 29 mmol/L (21-32) 04/08/18 07:00 Anion Gap 5 MMOL/L (8-16) L 04/08/18 07:00 BUN 11 mg/dL (7-18) 04/08/18 07:00 Creatinine 1.0 mg/dL (0.55-1.3) 04/08/18 07:00 Creat Clearance w eGFR > 60 (>60) 04/08/18 07:00 Random Glucose 93 mg/dL (74-106) 04/08/18 07:00 Calcium 8.7 mg/dL (8.5-10.1) 04/08/18 07:00 Total Bilirubin 0.5 mg/dL (0.2-1) 04/08/18 07:00 AST 30 U/L (15-37) 04/08/18 07:00 ALT 36 U/L (13-61) 04/08/18 07:00 Alkaline Phosphatase 61 U/L (45-117) 04/08/18 07:00 Total Protein 6.7 g/dl (6.4-8.2) 04/08/18 07:00 Albumin 3.4 g/dl (3.4-5.0) 04/08/18 07:00 RPR Titer Nonreactive (NONREACTIVE) 04/08/18 07:00 Assessment: 04/09/18 10:56 withdrawal symptom Plan: continue detox
[2018-04-09] MEDS: chlordiazePOXIDE 5 MG CAPSULE PO SCH ×2 (17:53→22:35)
[2018-04-09] MEDS: THIAMINE HCL 100 MG TABLET (FP) PO SCH (22:34)
[2018-04-09] MEDS: ATORVASTATIN CA 80 MG TABLET (FP) PO SCH (22:34)
[2018-04-09] MEDS: MELATONIN 5 MG TABLETS PO PRN (22:35)
[2018-04-10] MEDS: chlordiazePOXIDE 5 MG CAPSULE PO SCH ×2 (06:24→11:08)
[2018-04-10 09:16] VITALS: BP 113/68; PULSE 127; TEMP 98.4
[2018-04-10] MEDS: PRENATAL VITAMINS W/ FOLIC ACID TABLET (FP) PO SCH (11:07)
[2018-04-10] MEDS: ASPIRIN 81 MG CHEWABLE TABLETS PO SCH (11:07)
[2018-04-10] MEDS: NICOTINE 21 MG/24 HOURS TOPICAL PATCH TD SCH (11:08)
[2018-04-10] MEDS: metoPROLOL SUCCINATE 25 MG TAB.SR.24H (FP) PO SCH (11:08)
[2018-04-10] MEDS: ELVITEG/COB/EMTRI/TENOF (GENVOYA) TABLET (NF) PO SCH (11:08)
[2018-04-10] MEDS: TICAGRELOR 90 MG TABLET PO SCH (11:08)
[2018-04-10] MEDS: LOSARTAN POTASSIUM 25 MG TABLET PO SCH (11:08)
--- NOTE | 2018-04-10 15:19 | DS ---
[facility] Detox Discharge Summary Admission Date: 04/07/18 Discharge Date: 04/10/18 - History Present History: Alcohol Dependence Pertinent Past History: pt states he wants to leave today, rather than waiting for tomorrow as he has some urgent matters to take care of at home, and also he states he was told that he will not get a rehab bed at the place of his choice. would prefer to leave today rather than complete detox - Physical Exam Results Vital Signs: Vital Signs Temperature 98.4 F 04/10/18 09:15 Pulse Rate 127 H 04/10/18 09:15 Respiratory Rate 18 04/10/18 09:15 Blood Pressure 113/68 04/10/18 09:15 O2 Sat by Pulse Oximetry (%) - Treatment Hospital Course: Detox Protocol Followed, Detoxed Safely, Responded well, Discharged Condition Good - Medication Discharge Medications: Ambulatory Orders Aspirin [ASA -] 81 mg PO DAILY 08/25/16 Elviteg/Cob/Emtri/Tenof Alafen [Genvoya Tablet] 1 each PO DAILY 10/19/17 Albuterol Sulfate Inhaler - [Ventolin HFA Inhaler -] 2 inh PO Q4H PRN #1 inhaler 10/22/17 Atorvastatin Ca [Lipitor] 80 mg PO HS #30 tablet 10/22/17 Losartan Potassium [Cozaar -] 25 mg PO DAILY #30 tablet 10/22/17 Metoprolol Succinate [Toprol XL -] 25 mg PO DAILY #30 tab.sr.24h 10/22/17 Ticagrelor [Brilinta] 90 mg PO BID 10/23/17 - AMA Did Patient Leave Against Medical Advice: Yes
[2018-04-10] MEDS ORDERED: chlordiazePOXIDE HCL 10 MG CAPSULE PO SCH (17:00)
== END 2018-04-10 11:16 | disposition left against medical advice (07) | DRG 770 ==
LOC: YASAS 11:44 → Y6N 15:52
PROVIDERS: ADMIT Surgery; ATTEND Surgery
PROC: HZ2ZZZZ Detoxification Services for Substance Abuse Treatment (ICD-10-PCS; principal; 2018-04-07)
DX: F10.230 Alcohol dependence with withdrawal, uncomplicated (principal); F14.20 Cocaine dependence, uncomplicated; F12.20 Cannabis dependence, uncomplicated; F17.210 Nicotine dependence, cigarettes, uncomplicated; I10 Essential (primary) hypertension; I25.2 Old myocardial infarction; J45.909 Unspecified asthma, uncomplicated; D69.6 Thrombocytopenia, unspecified; Z21 Asymptomatic human immunodeficiency virus [HIV] infection status; E78.00 Pure hypercholesterolemia, unspecified; Z95.5 Presence of coronary angioplasty implant and graft
CPT/HCPCS: 36415; 80053; 85027; 86593; 93005; 93010; Q0162

== ENCOUNTER 2018-05-26 10:14 | Inpatient (IN) | payer OTHER ==
[2018-05-26 10:47] VITALS: BMI 28.7
--- NOTE | 2018-05-26 11:00 | HP ---
CIWA Score Nausea/Vomitin-Mild Nausea/No Vomiting Muscle Tremors: 4-Moderate,w/Arms Extend Anxiety: 3 Agitation: 1-Slight > Activity Paroxysmal Sweats: 3 (Increased facial mositure) Orientation: 0-Oriented Tacttile Disturbances: 0-None Auditory Disturbances: 0-None Visual Disturbances: 0-None Headache: 0-None Present CIWA-Ar Total Score: 12 - Admission Criteria OAS Guidelines: Admission for Medically Managed Detox: Requires at least one of the followin. CIWA greater than 12 2. Seizures within the past 24 hours 3. Delirium tremens within the past 24 hours 4. Hallucinations within the past 24 hours 5. Acute intervention needed for co occurring medical disorder 6. Acute intervention needed for co occurring psychiatric disorder 7. Severe withdrawal that cannot be handled at a lower level of care (continued vomiting, continued diarrhea, abnormal vital signs) requiring intravenous medication and/or fluids 8. Patient presents the following: CIWA greater than 12 Admission Criteria Met: Admission criteria met Admission ROS [facility] Chief Complaint: Alcohol withdrawal Allergies/Adverse Reactions: Allergies Allergy/AdvReac Type Severity Reaction Status Date / Time No Known Allergies Allergy Verified 04/07/18 15:24 History of Present Illness: Here for alcohol detox. Alcohol use began at age 12. Crack use began at age 25. marijuana use began at age 12. Nicotine use began at age 10. States able to maintain sobriety for only 4 days after discharge on 04/10/18. Longest length of sobriety 2 months PMHx: Hypertension, Asthma, ID (2017), HIV + States non-compliant w/ meds, Dry eyes MHHx: Occ depression. Denies thoughts of harming self or others. Patient Name: Danny Mayberry Date: 1960 Address: [address] [place] [id number] Sex: Male Rx Written Rx Dispensed Drug Quantity Days Supply Prescriber Name 01/17/2018 01/19/2018 chlordiazepoxide 10 mg capsule 10 3 Jeannie Emerson MD 01/14/2018 01/15/2018 chlordiazepoxide 10 mg capsule 12 4 Jeannie Emerson MD Patient Name: Danny Mayberry Date: 1960 Address: [address] [address] Sex: Male Rx Written Rx Dispensed Drug Quantity Days Supply Prescriber Name 12/27/2017 12/27/2017 chlordiazepoxide 25 mg capsule 24 5 Kay Martins NP Patient Name: Danny Mayberry Date: 1960 Address: [address] [place] [address] Sex: Male Rx Written Rx Dispensed Drug Quantity Days Supply Prescriber Name 08/30/2017 08/30/2017 chlordiazepoxide 25 mg capsule 15 5 Juan Moser MD Exam Limitations: No Limitations - Ebola screening Have you traveled outside of the country in the last 21 days: No (N) Have you had contact with anyone from an Ebola affected area: No Have you been sick,other than usual withdrawal symptoms: No (Denies recent measles exposure) Do you have a fever: No - Review of Systems Constitutional: Changes in sleep (Difficulty falling and staying asleep - takes Benadryl) EENT: reports: Dental Problems (Upper denures. Able to chew and swallow ok.), Other (States hx dry eyes - takes artifical tears) Respiratory: reports: No Symptoms reported Cardiac: reports: No Symptoms Reported GI: reports: No Symptoms Reported : reports: No Symptoms Reported Musculoskeletal: reports: No Symptoms Reported Integumentary: reports: No Symptoms Reported Neuro: reports: Tremors Endocrine: reports: No Symptoms Reported Hematology: reports: Other (HIV +. Last took medications 4 days ago. States non -compliant.) Psychiatric: reports: Judgement Intact, Orientated x3, Anxious, Depressed ( Sometimes. Denies thoughts of harming self or others.) Patient History - Patient Medical History Hx Anemia: No Hx Asthma: Yes (on inhaler) Hx Chronic Obstructive Pulmonary Disease (COPD): No Hx Cancer: No Hx Cardiac Disorders: Yes (hx ID May 2016) Hx Congestive Heart Failure: No Hx Hypertension: No Hx Hypercholesterolemia: No Hx Pacemaker: No HX Cerebrovascular Accident: No Hx Seizures: No Hx Dementia: No Hx Diabetes: No Hx Gastrointestinal Disorders: No Hx Liver Disease: No Hx Genitourinary Disorders: No Hx Sexually Transmitted Disorders: No Hx Renal Disease (ESRD): No Hx Thyroid Disease: No Hx Human Immunodeficiency Virus (HIV): Yes (2002, LAST CD4 -400, vl- undetectable , no OI's ) Hx Hepatitis C: No Hx Depression: No Hx Suicide Attempt: No (denies) Hx Bipolar Disorder: No Hx Schizophrenia: No - Patient Surgical History Past Surgical History: No Hx Neurologic Surgery: No Hx Cataract Extraction: No Hx Cardiac Surgery: No Hx Lung Surgery: No Hx Breast Surgery: No Hx Breast Biopsy: No Hx Abdominal Surgery: No Hx Appendectomy: No Hx Cholecystectomy: No Hx Genitourinary Surgery: No Hx Section: No Hx Orthopedic Surgery: No Anesthesia Reaction: No - PPD History Previous Implant?: Yes Documented Results: Negative w/o proof PPD to be Administered?: Yes - Smoking Cessation Smoking history: Current every day smoker Have you smoked in the past 12 months: Yes Aproximately how many cigarettes per day: 7 Cigars Per Day: 0 Hx Chewing Tobacco Use: No Initiated information on smoking cessation: Yes 'Breaking Loose' booklet given: 05/26/18 - Substance & Tx. History Hx Alcohol Use: Yes Hx Substance Use: Yes Substance Use Type: Alcohol, Cocaine - Substances abused Alcohol Substance route: Oral Frequency: Daily Amount used: 30 beers Age of first use: 12 Date of last use: 05/26/18 Crack Substance route: Smoking Frequency: 1-3 times last 30 days Amount used: 10 vials Age of first use: 25 Date of last use: 05/25/18 Marijuana/Hashish Substance route: Smoking Frequency: Daily Amount used: 1 bag Age of first use: 12 Date of last use: 05/26/18 Family Disease History - Family Disease History Family Disease History: Other: Mother (alcohol) Admission Physical Exam BHS - Vital Signs Vital Signs: Vital Signs - 24 hr 05/26/18 10:18 Temperature 98.5 F Pulse Rate 60 Respiratory 18 Rate Blood Pressure 96/67 - Physical General Appearance: Yes: Nourished, Mild Distress, Tremorous, Sweating, Anxious HEENTM: Yes: EOMI, Hearing grossly Normal, Normocephalic, ARTI, Pharynx Normal Respiratory: Yes: Lungs Clear, Normal Breath Sounds, No Respiratory Distress Neck: Yes: No masses,lesions,Nodules, Supple Breast: Yes: Breast Exam Deferred Cardiology: Yes: Regular Rhythm, Regular Rate, S1, S2, Murmur Abdominal: Yes: Non Tender, Flat, Soft Genitourinary: Yes: Within Normal Limits Back: Yes: Normal Inspection Musculoskeletal: Yes: full range of Motion, Gait Steady Extremities: Yes: Normal Capillary Refill, Normal Inspection, Normal Range of Motion, Non-Tender, Tremors Neurological: Yes: instrumentation designer II-XII NML intact, Fully Oriented, Alert, Motor Strength 5/5 Integumentary: Yes: Normal Color, Warm Lymphatic: Yes: Within Normal Limits - Diagnostic (1) Alcohol dependence with withdrawal Current Visit: Yes Status: Acute Qualifiers: Complication of substance-induced condition: uncomplicated Qualified Code(s ): F10.230 - Alcohol dependence with withdrawal, uncomplicated (2) Cannabis dependence Current Visit: Yes Status: Chronic (3) Human immunodeficiency virus infection Current Visit: Yes Status: Chronic Comment: not compliant with his medication. (4) History of heart artery stent Current Visit: Yes Status: Chronic (5) History of positive PPD Current Visit: Yes Status: Chronic (6) History of ID (myocardial infarction) Current Visit: Yes Status: Chronic (7) HTN (hypertension) Current Visit: Yes Status: Chronic Qualifiers: Hypertension type: essential hypertension Qualified Code(s): I10 - Essential (primary) hypertension (8) Murmur, cardiac Current Visit: Yes Status: Suspected (9) Nicotine dependence Current Visit: Yes Status: Chronic Qualifiers: Nicotine product type: cigarettes Substance use status: in withdrawal Qualified Code(s): F17.213 - Nicotine dependence, cigarettes, with withdrawal (10) Cocaine dependence Current Visit: Yes Status: Chronic Qualifiers: Substance use status: uncomplicated Qualified Code(s): F14.20 - Cocaine dependence, uncomplicated Cleared for Admission [facility] - Detox or Rehab [facility] Level of Care: Medically Managed Detox Regimen/Protocol: Librium Breathalyzer - Breathalyzer Breathalyzer: 0.023 Urine Drug Screen - Test Device Lot number: [id number] Expiration date: 01/05/20 - Control Is test valid?: Yes - Results Urine drug screen results: THC-Marijuana, ALCIDES-Cocaine Inpatient Rehab Admission - Rehab Decision to Admit Inpatient rehab admission?: No
[2018-05-26] MEDS ORDERED: guaiFENesin 200 MG/10 ML 10 ML UNIT-DOSE CUPS PO PRN (12:43)
[2018-05-26] MEDS ORDERED: MENTHOL/PHENOL 1 EACH UD MM PRN (12:43)
[2018-05-26] MEDS ORDERED: MAGNESIUM CITRATE 300 ML BOTTLE PO PRN (12:43)
[2018-05-26] MEDS ORDERED: MAG HYDROX/AL HYDROX/SIMETH 30 ML UNIT-DOSE CUP PO PRN (12:43)
[2018-05-26] MEDS ORDERED: ACETAMINOPHEN 325 MG TABLET (FP) PO PRN ×2 (12:43)
[2018-05-26] MEDS ORDERED: IBUPROFEN 400 MG TABLET (FP) PO PRN (12:43)
[2018-05-26] MEDS ORDERED: METHOCARBAMOL 500 MG TABLET PO PRN (12:43)
[2018-05-26] MEDS ORDERED: MAGNESIUM HYDROX 2400MG/30ML ORAL SUSPENSION 30 ML CUP PO PRN (12:43)
[2018-05-26] MEDS ORDERED: BISMUTH SUBSALICYLATE 524 MG/30 ML UD PO PRN (12:43)
[2018-05-26] MEDS ORDERED: chlordiazePOXIDE HCL 25 MG CAPSULE PO ONE (12:43)
[2018-05-26] MEDS ORDERED: NICOTINE POLACRILEX 2 MG GUM BUC PRN (12:55)
[2018-05-26] MEDS: NICOTINE 14 MG/24 HOURS TOPICAL PATCH TD SCH (13:02)
[2018-05-26 13:37] LABS: URINE APPEARANCE TURBID; URINE BILIRUBIN NEGATIVE (NEGATIVE); URINE COLOR YELLOW; URINE GLUCOSE (UA) NEGATIVE (NEGATIVE); URINE KETONE TRACE (NEGATIVE); URINE LEUK ESTERASE NEGATIVE (NEGATIVE); URINE NITRITE NEGATIVE (NEGATIVE); URINE PROTEIN NEGATIVE (NEGATIVE)
[2018-05-26] MEDS: chlordiazePOXIDE HCL 10 MG CAPSULE PO PRN (17:36)
[2018-05-26] MEDS: MELATONIN 5 MG TABLETS PO PRN (22:33)
[2018-05-26] MEDS: THIAMINE HCL 100 MG TABLET (FP) PO SCH (22:33)
[2018-05-26] MEDS: chlordiazePOXIDE HCL 25 MG CAPSULE PO SCH (22:33)
[2018-05-26] MEDS: TICAGRELOR 90 MG TABLET PO SCH (22:34)
[2018-05-26] MEDS: ATORVASTATIN CA 80 MG TABLET (FP) PO SCH (22:34)
[2018-05-27] MEDS: chlordiazePOXIDE HCL 25 MG CAPSULE PO SCH ×2 (05:50→12:46)
[2018-05-27 09:38] LABS: HEMATOCRIT 35.3 % (35.4-49); HEMOGLOBIN 12.2 GM/dL (11.7-16.9); MCH 31.5 pg (25.7-33.7); MCHC 34.5 g/dl (32.0-35.9); MEAN CELL VOLUME 91.2 fl (80-96); MEAN PLT VOLUME 10.2 fl (7.5-11.1); PLATELET COUNT 135 K/MM3 (134-434); RBC 3.87 M/mm3 (4.00-5.60); RDW 14.4 % (11.9-15.9); WHITE BLOOD COUNT 3.8 K/mm3 (4.0-10.0)
[2018-05-27 09:55] LABS: ALBUMIN 3.2 g/dl (3.4-5.0); ALK PHOS 67 U/L (45-117); ANION GAP 6 MMOL/L (8-16); BILIRUBIN,TOTAL 0.3 mg/dL (0.2-1); BLOOD UREA NITROGEN 16 mg/dL (7-18); CALCIUM 8.2 mg/dL (8.5-10.1); CHLORIDE 107 mmol/L (98-107); CO2 30 mmol/L (21-32); CREATININE 0.9 mg/dL (0.55-1.3); GLUCOSE,RANDOM 103 mg/dL (74-106); POTASSIUM 3.9 mmol/L (3.5-5.1); SGOT/AST 43 U/L (15-37); SGPT/ALT 46 U/L (13-61); SODIUM 143 mmol/L (136-145); TOT PROT 6.2 g/dl (6.4-8.2)
[2018-05-27] MEDS: NICOTINE 14 MG/24 HOURS TOPICAL PATCH TD SCH (10:11)
[2018-05-27] MEDS: TICAGRELOR 90 MG TABLET PO SCH ×2 (10:12→21:46)
[2018-05-27] MEDS: ASPIRIN 81 MG CHEWABLE TABLETS PO SCH (10:13)
[2018-05-27] MEDS: PRENATAL VITAMINS W/ FOLIC ACID TABLET (FP) PO SCH (10:13)
[2018-05-27] MEDS: metoPROLOL SUCCINATE 25 MG TAB.SR.24H (FP) PO SCH (10:13)
[2018-05-27] MEDS: LOSARTAN POTASSIUM 25 MG TABLET PO SCH (10:14)
--- NOTE | 2018-05-27 11:54 | PN ---
[facility] CIWA - CIWA Score Nausea/Vomitin-No Nausea/No Vomiting Muscle Tremors: 1-None Visible, but [place] Anxiety: 2 Agitation: 2 Paroxysmal Sweats: 2 Orientation: 0-Oriented Tacttile Disturbances: 0-None Auditory Disturbances: 0-None Visual Disturbances: 0-None Headache: 0-None Present CIWA-Ar Total Score: 7 BHS Progress Note (SOAP) Subjective: PATIENT C/O SLEEP DISTURBANCE, NIGHT SWEATS, ANXIETY AND RESTLESSNESS. Objective: 05/27/18 11:50 Laboratory Tests 05/26/18 05/27/18 05/27/18 12:35 07:45 07:45 WBC 3.8 L RBC 3.87 L Hgb 12.2 Hct 35.3 L MCV 91.2 MCH 31.5 MCHC 34.5 RDW 14.4 Plt Count 135 MPV 10.2 Sodium 143 Potassium 3.9 Chloride 107 Carbon Dioxide 30 Anion Gap 6 L BUN 16 Creatinine 0.9 Creat Clearance w eGFR 86.98 Random Glucose 103 Calcium 8.2 L Total Bilirubin 0.3 AST 43 H ALT 46 Alkaline Phosphatase 67 Total Protein 6.2 L Albumin 3.2 L Urine Color Yellow Urine Appearance Turbid Urine pH 5.0 Ur Specific [place] 1.024 Urine Protein Negative Urine Glucose (UA) Negative Urine Ketones Trace H Urine Blood Negative Urine Nitrite Negative Urine Bilirubin Negative Urine Urobilinogen 1.0 Ur Leukocyte Esterase Negative RPR Titer 05/27/18 07:45 WBC RBC Hgb Hct MCV MCH MCHC RDW Plt Count MPV Sodium Potassium Chloride Carbon Dioxide Anion Gap BUN Creatinine Creat Clearance w eGFR Random Glucose Calcium Total Bilirubin AST ALT Alkaline Phosphatase Total Protein Albumin Urine Color Urine Appearance Urine pH Ur Specific [place] Urine Protein Urine Glucose (UA) Urine Ketones Urine Blood Urine Nitrite Urine Bilirubin Urine Urobilinogen Ur Leukocyte Esterase RPR Titer Nonreactive Vital Signs Temperature 98.2 F 05/27/18 10:38 Pulse Rate 66 05/27/18 10:38 Respiratory Rate 18 05/27/18 10:38 Blood Pressure 107/66 05/27/18 10:38 O2 Sat by Pulse Oximetry (%) PE: ALERT AND ORIENTED X 3 SKIN WARM AND MOIST EXT FULL ROM, MILD TREMORS ANXIOUS Assessment: 05/27/18 11:54 WITHDRAWAL SX Plan: CONTINUE DETOX ENCOURAGE ORAL FLUIDS MONITOR CLINICALLY
[2018-05-27] MEDS: chlordiazePOXIDE HCL 10 MG CAPSULE PO PRN (18:38)
[2018-05-27] MEDS: MELATONIN 5 MG TABLETS PO PRN (21:46)
[2018-05-27] MEDS: ATORVASTATIN CA 80 MG TABLET (FP) PO SCH (21:46)
[2018-05-27] MEDS: chlordiazePOXIDE 5 MG CAPSULE PO SCH (21:46)
[2018-05-27] MEDS: THIAMINE HCL 100 MG TABLET (FP) PO SCH (21:48)
[2018-05-28] MEDS: chlordiazePOXIDE 5 MG CAPSULE PO SCH ×2 (06:01→14:32)
[2018-05-28] MEDS: NICOTINE 14 MG/24 HOURS TOPICAL PATCH TD SCH (10:48)
[2018-05-28] MEDS: ASPIRIN 81 MG CHEWABLE TABLETS PO SCH (10:48)
[2018-05-28] MEDS: PRENATAL VITAMINS W/ FOLIC ACID TABLET (FP) PO SCH (10:48)
[2018-05-28] MEDS: TICAGRELOR 90 MG TABLET PO SCH ×2 (10:50→23:10)
[2018-05-28] MEDS: LOSARTAN POTASSIUM 25 MG TABLET PO SCH (13:06)
[2018-05-28] MEDS: metoPROLOL SUCCINATE 25 MG TAB.SR.24H (FP) PO SCH (13:06)
--- NOTE | 2018-05-28 13:19 | PN ---
[facility] CIWA - CIWA Score Nausea/Vomitin-No Nausea/No Vomiting Muscle Tremors: 3 Anxiety: 3 Agitation: 3 Paroxysmal Sweats: 2 Orientation: 0-Oriented Tacttile Disturbances: 0-None Auditory Disturbances: 0-None Visual Disturbances: 0-None Headache: 0-None Present CIWA-Ar Total Score: 11 S Progress Note (SOAP) Subjective: upset stomach anxiety restless Objective: 05/28/18 13:18 Vital Signs Temperature 98.1 F 05/28/18 13:13 Pulse Rate 57 L 05/28/18 13:13 Respiratory Rate 18 05/28/18 13:13 Blood Pressure 103/68 05/28/18 13:13 O2 Sat by Pulse Oximetry (%) Laboratory Tests 05/26/18 05/27/18 05/27/18 12:35 07:45 07:45 WBC 3.8 L RBC 3.87 L Hgb 12.2 Hct 35.3 L MCV 91.2 MCH 31.5 MCHC 34.5 RDW 14.4 Plt Count 135 MPV 10.2 Sodium 143 Potassium 3.9 Chloride 107 Carbon Dioxide 30 Anion Gap 6 L BUN 16 Creatinine 0.9 Creat Clearance w eGFR 86.98 Random Glucose 103 Calcium 8.2 L Total Bilirubin 0.3 AST 43 H ALT 46 Alkaline Phosphatase 67 Total Protein 6.2 L Albumin 3.2 L Urine Color Yellow Urine Appearance Turbid Urine pH 5.0 Ur Specific [place] 1.024 Urine Protein Negative Urine Glucose (UA) Negative Urine Ketones Trace H Urine Blood Negative Urine Nitrite Negative Urine Bilirubin Negative Urine Urobilinogen 1.0 Ur Leukocyte Esterase Negative RPR Titer 05/27/18 07:45 WBC RBC Hgb Hct MCV MCH MCHC RDW Plt Count MPV Sodium Potassium Chloride Carbon Dioxide Anion Gap BUN Creatinine Creat Clearance w eGFR Random Glucose Calcium Total Bilirubin AST ALT Alkaline Phosphatase Total Protein Albumin Urine Color Urine Appearance Urine pH Ur Specific [place] Urine Protein Urine Glucose (UA) Urine Ketones Urine Blood Urine Nitrite Urine Bilirubin Urine Urobilinogen Ur Leukocyte Esterase RPR Titer Nonreactive aaox3 ambulating no acute distress Assessment: 05/28/18 13:19 mild withdrawal sx Plan: continue detox increase fluids
--- NOTE | 2018-05-28 13:25 | PN ---
[facility] Progress Note Note: pt was requesting genvoya his HIV medication however pt was told this medication is not available and if he can have family bring it here for him. Pt was told that a call to his pharmacy was made and he picked up a refill on 05/16, pt cannot answer as to where his medication is. Pt then states he lost it. Pt was advised to go to his pharmacy and request a refill at time of discharge from detox. pt in agreement. pt was also told we are not his PCP or ID medical doctors and a prescription for this particular medication should be prescribed by his PCP. pt in agreement. pt will follow up after detox.
[2018-05-28] MEDS ORDERED: chlordiazePOXIDE HCL 10 MG CAPSULE PO PRN (21:00)
[2018-05-28] MEDS: chlordiazePOXIDE HCL 10 MG CAPSULE PO SCH (23:08)
[2018-05-28] MEDS: ATORVASTATIN CA 80 MG TABLET (FP) PO SCH (23:10)
[2018-05-28] MEDS: THIAMINE HCL 100 MG TABLET (FP) PO SCH (23:10)
[2018-05-29] MEDS: chlordiazePOXIDE HCL 10 MG CAPSULE PO SCH (07:22)
--- NOTE | 2018-05-29 08:47 | DS ---
[facility] Detox Discharge Summary Admission Date: 05/26/18 Discharge Date: 05/29/18 - History Present History: Alcohol Dependence, Cannabis Dependence, Cocaine Dependence - Physical Exam Results Vital Signs: Vital Signs Temperature 97.9 F 05/28/18 21:51 Pulse Rate 64 05/28/18 21:51 Respiratory Rate 18 05/29/18 00:30 Blood Pressure 118/96 05/28/18 21:51 O2 Sat by Pulse Oximetry (%) - Treatment Hospital Course: Detox Protocol Followed, Detoxed Safely, Responded well, Discharged Condition Good, Rehab Referral Accepted - Medication Discharge Medications: Ambulatory Orders Aspirin [ASA -] 81 mg PO DAILY 08/25/16 Elviteg/Cob/Emtri/Tenof Alafen [Genvoya Tablet] 1 each PO DAILY 10/19/17 Albuterol Sulfate Inhaler - [Ventolin HFA Inhaler -] 2 inh PO Q4H PRN #1 inhaler 10/22/17 Ticagrelor [Brilinta] 90 mg PO BID 10/23/17 Atorvastatin Ca [Lipitor] 80 mg PO HS 05/26/18 Losartan Potassium [Cozaar -] 25 mg PO DAILY 05/26/18 Metoprolol Succinate [Toprol XL -] 25 mg PO DAILY 05/26/18 - Diagnosis (1) Alcohol dependence with withdrawal Current Visit: Yes Status: Chronic Qualifiers: Complication of substance-induced condition: uncomplicated Qualified Code(s ): F10.230 - Alcohol dependence with withdrawal, uncomplicated (2) Cannabis dependence Current Visit: Yes Status: Chronic (3) Cocaine dependence Current Visit: Yes Status: Chronic Qualifiers: Substance use status: uncomplicated Qualified Code(s): F14.20 - Cocaine dependence, uncomplicated (4) HTN (hypertension) Current Visit: Yes Status: Chronic Qualifiers: Hypertension type: essential hypertension Qualified Code(s): I10 - Essential (primary) hypertension (5) History of TN (myocardial infarction) Current Visit: Yes Status: Chronic (6) History of heart artery stent Current Visit: Yes Status: Chronic (7) History of positive PPD Current Visit: Yes Status: Chronic (8) Human immunodeficiency virus infection Current Visit: Yes Status: Chronic (9) Nicotine dependence Current Visit: Yes Status: Chronic Qualifiers: Nicotine product type: cigarettes Substance use status: in withdrawal Qualified Code(s): F17.213 - Nicotine dependence, cigarettes, with withdrawal (10) Murmur, cardiac Current Visit: Yes Status: Suspected (11) Syncope Current Visit: No Status: Active (12) Cannabis abuse Current Visit: No Status: Acute (13) Mood disorder Current Visit: No Status: Acute (14) Weight loss Current Visit: No Status: Acute (15) Asthma Current Visit: Yes Status: Chronic Qualifiers: Asthma severity: mild Asthma persistence: intermittent Asthma complication type: with status asthmaticus Qualified Code(s): J45.22 - Mild intermittent asthma with status asthmaticus (16) Hypercholesterolemia Current Visit: No Status: Chronic (17) Schizoaffective disorder Current Visit: No Status: Chronic (18) Stented coronary artery Current Visit: Yes Status: Chronic (19) PPD positive Current Visit: No Status: Resolved - AMA Did Patient Leave Against Medical Advice: No (referred to [facility] rehab)
[2018-05-29 09:41] VITALS: BP 91/63; PULSE 52; TEMP 97.7
== END 2018-05-29 10:14 | disposition home or self-care (01) | DRG 774 ==
LOC: YASAS 10:14 → Y6N 11:29
PROVIDERS: ADMIT Surgery; ATTEND Surgery
PROC: HZ2ZZZZ Detoxification Services for Substance Abuse Treatment (ICD-10-PCS; principal; 2018-05-26)
DX: F10.230 Alcohol dependence with withdrawal, uncomplicated (principal); F14.20 Cocaine dependence, uncomplicated; F12.20 Cannabis dependence, uncomplicated; F17.213 Nicotine dependence, cigarettes, with withdrawal; F39 Unspecified mood [affective] disorder; F25.9 Schizoaffective disorder, unspecified; I10 Essential (primary) hypertension; I25.2 Old myocardial infarction; R76.11 Nonspecific reaction to tuberculin skin test without active tuberculosis; Z21 Asymptomatic human immunodeficiency virus [HIV] infection status; R01.1 Cardiac murmur, unspecified; J45.22 Mild intermittent asthma with status asthmaticus; E78.00 Pure hypercholesterolemia, unspecified; Z95.5 Presence of coronary angioplasty implant and graft; Z91.14 Patient's other noncompliance with medication regimen
CPT/HCPCS: 36415; 80053; 81003; 85027; 86593

== ENCOUNTER 2018-08-13 13:41 | Inpatient (IN) | payer OTHER ==
[2018-08-13 17:02] VITALS: BMI 29.9
--- NOTE | 2018-08-13 17:58 | HP ---
CIWA Score Nausea/Vomitin Muscle Tremors: 3 Anxiety: 4-Mod. Anxious/Guarded Agitation: 4-Moderately Restless Paroxysmal Sweats: No Perspiration Orientation: 0-Oriented Tacttile Disturbances: 0-None Auditory Disturbances: 0-None Visual Disturbances: 0-None Headache: 1-Very Mild CIWA-Ar Total Score: 14 - Admission Criteria OASAS Guidelines: Admission for Medically Managed Detox: Requires at least one of the followin. CIWA greater than 12 2. Seizures within the past 24 hours 3. Delirium tremens within the past 24 hours 4. Hallucinations within the past 24 hours 5. Acute intervention needed for co occurring medical disorder 6. Acute intervention needed for co occurring psychiatric disorder 7. Severe withdrawal that cannot be handled at a lower level of care (continued vomiting, continued diarrhea, abnormal vital signs) requiring intravenous medication and/or fluids 8. Admission ROS [facility] Chief Complaint: seeking help for alcohol and cocaine Allergies/Adverse Reactions: Allergies Allergy/AdvReac Type Severity Reaction Status Date / Time No Known Allergies Allergy Verified 08/13/18 16:39 History of Present Illness: 57 y/o/m here for alcohol and cocaine use. He has been using a 6 pack of 16 oz beers everyday. He starts drinking early in the morning and continues throughout his day. He last had a drink this morning. He denies any history of seizures and has had multiple episodes of blackouts with his last episode being a few months ago. He is using $100 of cocaine twice a month, his last use was yesterday. He uses it by smoking and denies any IV use. He uses Marijuana everyday if he has the money, he states it helps his appetite. He is living with a family member and is currently unemployed. He gets money for drugs through public assistance programs. He states the only medications he is taking everyday is Brilinta and aspirin. Patient is HIV positive but not taking medication regularly. He is currently smoking 7 cigarettes a day. - Ebola screening Have you traveled outside of the country in the last 21 days: No Have you had contact with anyone from an Ebola affected area: No Do you have a fever: No - Review of Systems Constitutional: Chills, Loss of Appetite Respiratory: reports: No Symptoms reported. denies: Cough, Shortness of Breath Cardiac: reports: No Symptoms Reported GI: reports: Nausea, Abdominal cramping. denies: Diarrhea, Vomiting Musculoskeletal: reports: No Symptoms Reported Integumentary: reports: No Symptoms Reported Neuro: reports: No Symptoms reported Endocrine: reports: Excessive Sweating Psychiatric: reports: Agitated, Anxious, Depressed Other Systems: Reviewed and Negative Patient History - Patient Medical History Hx Anemia: No Hx Asthma: Yes (not using inhaler currently) Hx Chronic Obstructive Pulmonary Disease (COPD): No Hx Cancer: No Hx Cardiac Disorders: Yes (hx RI May 2016) Hx Congestive Heart Failure: No Hx Hypertension: No Hx Hypercholesterolemia: Yes (no meds currently ) Hx Pacemaker: No HX Cerebrovascular Accident: No Hx Seizures: No Hx Dementia: No Hx Diabetes: No Hx Gastrointestinal Disorders: No Hx Liver Disease: No Hx Genitourinary Disorders: No Hx Sexually Transmitted Disorders: No Hx Renal Disease (ESRD): No Hx Thyroid Disease: No Hx Human Immunodeficiency Virus (HIV): Yes (2002, LAST CD4 -400, vl- undetectable , no OI's ) Hx Hepatitis C: No Hx Depression: No Hx Suicide Attempt: No (denies) Hx Bipolar Disorder: No Hx Schizophrenia: No Other Medical History: no suicidal and homicidal ideations - Patient Surgical History Past Surgical History: No Hx Neurologic Surgery: No Hx Cataract Extraction: No Hx Cardiac Surgery: No Hx Lung Surgery: No Hx Abdominal Surgery: No Hx Appendectomy: No Hx Cholecystectomy: No Hx Genitourinary Surgery: No Hx Section: No Hx Orthopedic Surgery: No Anesthesia Reaction: No - PPD History Previous Implant?: Yes Documented Results: Positive w/o proof Implanted On Prior R Admission?: Yes PPD to be Administered?: No - Smoking Cessation Smoking history: Current every day smoker Have you smoked in the past 12 months: Yes Aproximately how many cigarettes per day: 7 Cigars Per Day: 0 Hx Chewing Tobacco Use: No Initiated information on smoking cessation: Yes 'Breaking Loose' booklet given: 08/13/18 - Substances abused Alcohol Substance route: Oral Frequency: Daily Amount used: 6 pack 16oz beers Age of first use: 12 Date of last use: 08/13/18 Crack Substance route: Smoking Frequency: 1-3 times last 30 days Amount used: 10 vials Age of first use: 25 Date of last use: 08/12/18 Marijuana/Hashish Substance route: Smoking Frequency: Daily Amount used: 1 bag Age of first use: 12 Date of last use: 08/13/18 Family Disease History - Family Disease History Family Disease History: Other: Mother (alcohol) Admission Physical Exam [facility] - Vital Signs Vital Signs: Vital Signs - 24 hr 08/13/18 16:39 Temperature 98.0 F Pulse Rate 67 Respiratory 20 Rate Blood Pressure 119/79 - Physical General Appearance: Yes: Disheveled, Irritable HEENTM: Yes: EOMI, Normocephalic Respiratory: Yes: Chest Non-Tender, Normal Breath Sounds, No Accessory Muscle Use Neck: Yes: Supple Cardiology: Yes: Regular Rhythm, Regular Rate, S1, S2 Abdominal: Yes: Normal Bowel Sounds, Non Tender. No: Guarding, Rebound Musculoskeletal: Yes: full range of Motion Extremities: Yes: Normal Capillary Refill, Tremors (bilaterally) Neurological: Yes: cuff folder II-XII NML intact, Fully Oriented, Alert, Motor Strength 5/5 Integumentary: Yes: Dry Cleared for Admission [facility] - Detox or Rehab [facility] Level of Care: Medically Managed Detox Regimen/Protocol: Librium Breathalyzer - Breathalyzer Breathalyzer: 0 Urine Drug Screen - Test Device Lot number: [id number] Expiration date: 06/04/20 - Control Is test valid?: Yes - Results Drug screen NEGATIVE: No Urine drug screen results: THC-Marijuana, ALCIDES-Cocaine, BZO-Benzodiazepines Inpatient Rehab Admission - Rehab Decision to Admit Inpatient rehab admission?: No
[2018-08-13] MEDS ORDERED: chlordiazePOXIDE HCL 10 MG CAPSULE PO PRN (18:36)
[2018-08-13] MEDS ORDERED: METHOCARBAMOL 500 MG TABLET PO PRN (18:36)
[2018-08-13] MEDS ORDERED: ACETAMINOPHEN 325 MG TABLET (FP) PO PRN ×2 (18:36)
[2018-08-13] MEDS ORDERED: MAGNESIUM HYDROX 2400MG/30ML ORAL SUSPENSION 30 ML CUP PO PRN (18:36)
[2018-08-13] MEDS ORDERED: MELATONIN 5 MG TABLETS PO PRN (18:36)
[2018-08-13] MEDS ORDERED: hydrOXYzine HCL 25 MG TABLET (FP) PO PRN (18:36)
[2018-08-13] MEDS ORDERED: BISMUTH SUBSALICYLATE 524 MG/30 ML UD PO PRN (18:36)
[2018-08-13] MEDS ORDERED: MENTHOL/PHENOL 1 EACH UD MM PRN (18:36)
[2018-08-13] MEDS ORDERED: MAG HYDROX/AL HYDROX/SIMETH 30 ML UNIT-DOSE CUP PO PRN (18:36)
[2018-08-13] MEDS ORDERED: IBUPROFEN 400 MG TABLET (FP) PO PRN (18:36)
[2018-08-13] MEDS ORDERED: MAGNESIUM CITRATE 300 ML BOTTLE PO PRN (18:36)
--- NOTE | 2018-08-13 18:49 | PN ---
Teaching Attending Note Name of Resident: William Matos ATTENDING PHYSICIAN STATEMENT I saw and evaluated the patient. I reviewed the resident's note and discussed the case with the resident. I agree with the resident's findings and plan as documented. SUBJECTIVE: pt here requesting detox from etoh , reports c/o tremors if not drinking , reports drinking in the mornings , s/p recent detox @ [facility] completed 2 weeks ago approximately , denies seizures . Pt evasive w/ answering questions, irritable . OBJECTIVE: wnwd , + UE slight tremors . CIWA 14 ASSESSMENT AND PLAN: etoh dependence - librium taper
[2018-08-13] MEDS: TICAGRELOR 90 MG TABLET PO SCH (22:23)
[2018-08-13] MEDS: THIAMINE HCL 100 MG TABLET (FP) PO SCH (22:23)
[2018-08-13] MEDS: chlordiazePOXIDE HCL 25 MG CAPSULE PO SCH (22:23)
[2018-08-14] MEDS: chlordiazePOXIDE HCL 25 MG CAPSULE PO SCH ×3 (06:26→22:05)
[2018-08-14 10:10] LABS: HEMOGLOBIN 12.5 GM/dL (11.7-16.9); MCH 29.9 pg (25.7-33.7); MCHC 33.8 g/dl (32.0-35.9); MEAN CELL VOLUME 88.4 fl (80-96); MEAN PLT VOLUME 10.1 fl (7.5-11.1); PLATELET COUNT 127 K/MM3 (134-434); RBC 4.18 M/mm3 (4.00-5.60); RDW 14.4 % (11.9-15.9); WHITE BLOOD COUNT 3.5 K/mm3 (4.0-10.0)
[2018-08-14 10:13] LABS: ALBUMIN 3.5 g/dl (3.4-5.0); BILIRUBIN,TOTAL 0.3 mg/dL (0.2-1); BLOOD UREA NITROGEN 10.8 mg/dL (7-18); CALCIUM 8.6 mg/dL (8.5-10.1); CREATININE 0.9 mg/dL (0.55-1.3); TOT PROT 6.9 g/dl (6.4-8.2)
--- NOTE | 2018-08-14 10:23 | PN ---
S CIWA - CIWA Score Nausea/Vomitin-Mild Nausea/No Vomiting Muscle Tremors: 2 Anxiety: 3 Agitation: 3 Paroxysmal Sweats: 1-Minimal Palms Moist Orientation: 1-Uncertain about Date Tacttile Disturbances: 1-Very Mild Itch/Numbness Auditory Disturbances: 0-None Visual Disturbances: 0-None Headache: 1-Very Mild CIWA-Ar Total Score: 13 S Progress Note (SOAP) Subjective: guarded limited conversation with the provider resting on bed tremor restlessness Objective: 08/14/18 10:22 Vital Signs Temperature 96.9 F L 08/14/18 09:13 Pulse Rate 60 08/14/18 09:13 Respiratory Rate 16 08/14/18 09:13 Blood Pressure 98/59 L 08/14/18 09:13 O2 Sat by Pulse Oximetry (%) Laboratory Last Values WBC 3.5 K/mm3 (4.0-10.0) L 08/14/18 07:50 RBC 4.18 M/mm3 (4.00-5.60) 08/14/18 07:50 Hgb 12.5 GM/dL (11.7-16.9) 08/14/18 07:50 Hct 37.0 % (35.4-49) 08/14/18 07:50 MCV 88.4 fl (80-96) 08/14/18 07:50 MCH 29.9 pg (25.7-33.7) 08/14/18 07:50 MCHC 33.8 g/dl (32.0-35.9) 08/14/18 07:50 RDW 14.4 % (11.9-15.9) 08/14/18 07:50 Plt Count 127 K/MM3 (134-434) L 08/14/18 07:50 MPV 10.1 fl (7.5-11.1) 08/14/18 07:50 Sodium 141 mmol/L (136-145) 08/14/18 07:50 Potassium 4.0 mmol/L (3.5-5.1) 08/14/18 07:50 Chloride 106 mmol/L (98-107) 08/14/18 07:50 Carbon Dioxide 30 mmol/L (21-32) 08/14/18 07:50 Anion Gap 4 MMOL/L (8-16) L 08/14/18 07:50 BUN 10.8 mg/dL (7-18) 08/14/18 07:50 Creatinine 0.9 mg/dL (0.55-1.3) 08/14/18 07:50 Est GFR (CKD-EPI)AfAm 109.50 08/14/18 07:50 Est GFR (CKD-EPI)NonAf 94.48 08/14/18 07:50 Random Glucose 109 mg/dL (74-106) H 08/14/18 07:50 Calcium 8.6 mg/dL (8.5-10.1) 08/14/18 07:50 Total Bilirubin 0.3 mg/dL (0.2-1) 08/14/18 07:50 AST 32 U/L (15-37) 08/14/18 07:50 ALT 40 U/L (13-61) 08/14/18 07:50 Alkaline Phosphatase 68 U/L (45-117) 08/14/18 07:50 Total Protein 6.9 g/dl (6.4-8.2) 08/14/18 07:50 Albumin 3.5 g/dl (3.4-5.0) 08/14/18 07:50 lab noted Assessment: 08/14/18 10:22 alcohol withdrawal sx Plan: continue alcohol detox
[2018-08-14] MEDS: TICAGRELOR 90 MG TABLET PO SCH ×2 (10:42→22:05)
[2018-08-14] MEDS: ASPIRIN 81 MG CHEWABLE TABLETS PO SCH (10:42)
[2018-08-14] MEDS: PRENATAL VITAMINS W/ FOLIC ACID TABLET (FP) PO SCH (10:42)
--- NOTE | 2018-08-14 18:18 | CONSULT ---
[facility] Psychiatric Consult - Data Date of interview: 08/14/18 Admission source: [facility] Identifying data: Facility Maintenance Technician approached patient for psychiatric consultation but patient refused consultation services at this time. Stated to clinical writer, " i was looking for you earlier. I'm in bed now." Patient informed that it would be documented as a refusal. Patient stated, " we can just do it tomorrow. not right now." Patient informed that another psychiatric consultation would have to be ordered. Psychiatric consultation refused. Substance Abuse History: Smoking Cessation. Smoking history: Current every day smoker. Have you smoked in the past 12 months: Yes. Aproximately how many cigarettes per day: 7. Cigars Per Day: 0. Hx Chewing Tobacco Use: No. Initiated information on smoking cessation: Yes. 'Breaking Loose' booklet given : 08/13/18. - Substances abused. Alcohol. Substance route: Oral. Frequency: Daily. Amount used: 6 pack 16oz beers. Age of first use: 12. Date of last use: 08/13/18. Crack. Substance route: Smoking. Frequency: 1-3 times last 30 days. Amount used: 10 vials. Age of first use: 25. Date of last use: 08/12/18. Marijuana/Hashish. Substance route: Smoking. Frequency : Daily. Amount used: 1 bag. Age of first use: 12. Date of last use: 08/13/18
[2018-08-14] MEDS: THIAMINE HCL 100 MG TABLET (FP) PO SCH (22:05)
[2018-08-15] MEDS: chlordiazePOXIDE 5 MG CAPSULE PO SCH ×3 (07:23→22:32)
[2018-08-15] MEDS: ASPIRIN 81 MG CHEWABLE TABLETS PO SCH (10:33)
[2018-08-15] MEDS: TICAGRELOR 90 MG TABLET PO SCH ×2 (10:33→22:32)
[2018-08-15] MEDS: PRENATAL VITAMINS W/ FOLIC ACID TABLET (FP) PO SCH (10:34)
[2018-08-15] MEDS ORDERED: diphenhydrAMINE HCL 25 MG CAPSULE (FP) PO PRN (10:57)
--- NOTE | 2018-08-15 11:04 | PN ---
[facility] CIWA - CIWA Score Nausea/Vomitin-Mild Nausea/No Vomiting Muscle Tremors: 1-None Visible, but [place] Anxiety: 3 Agitation: 2 Paroxysmal Sweats: 1-Minimal Palms Moist Orientation: 1-Uncertain about Date Tacttile Disturbances: 1-Very Mild Itch/Numbness Auditory Disturbances: 0-None Visual Disturbances: 0-None Headache: 0-None Present CIWA-Ar Total Score: 10 [facility] Progress Note (SOAP) Subjective: patient is irritable aggressive toward conventional underwriter regarding not having benadryl for his itchy skin discontinue hydroxine begin benadryl medical history of hypertension asthma hiv discuss none aggressive none threatening none abuse conversation Objective: 08/15/18 11:05 Vital Signs Temperature 98.3 F 08/15/18 10:42 Pulse Rate 76 08/15/18 10:42 Respiratory Rate 18 08/15/18 10:42 Blood Pressure 131/78 08/15/18 10:42 O2 Sat by Pulse Oximetry (%) Laboratory Last Values WBC 3.5 K/mm3 (4.0-10.0) L 08/14/18 07:50 RBC 4.18 M/mm3 (4.00-5.60) 08/14/18 07:50 Hgb 12.5 GM/dL (11.7-16.9) 08/14/18 07:50 Hct 37.0 % (35.4-49) 08/14/18 07:50 MCV 88.4 fl (80-96) 08/14/18 07:50 MCH 29.9 pg (25.7-33.7) 08/14/18 07:50 MCHC 33.8 g/dl (32.0-35.9) 08/14/18 07:50 RDW 14.4 % (11.9-15.9) 08/14/18 07:50 Plt Count 127 K/MM3 (134-434) L 08/14/18 07:50 MPV 10.1 fl (7.5-11.1) 08/14/18 07:50 Sodium 141 mmol/L (136-145) 08/14/18 07:50 Potassium 4.0 mmol/L (3.5-5.1) 08/14/18 07:50 Chloride 106 mmol/L (98-107) 08/14/18 07:50 Carbon Dioxide 30 mmol/L (21-32) 08/14/18 07:50 Anion Gap 4 MMOL/L (8-16) L 08/14/18 07:50 BUN 10.8 mg/dL (7-18) 08/14/18 07:50 Creatinine 0.9 mg/dL (0.55-1.3) 08/14/18 07:50 Est GFR (CKD-EPI)AfAm 109.50 08/14/18 07:50 Est GFR (CKD-EPI)NonAf 94.48 08/14/18 07:50 Random Glucose 109 mg/dL (74-106) H 08/14/18 07:50 Calcium 8.6 mg/dL (8.5-10.1) 08/14/18 07:50 Total Bilirubin 0.3 mg/dL (0.2-1) 08/14/18 07:50 AST 32 U/L (15-37) 08/14/18 07:50 ALT 40 U/L (13-61) 08/14/18 07:50 Alkaline Phosphatase 68 U/L (45-117) 08/14/18 07:50 Total Protein 6.9 g/dl (6.4-8.2) 08/14/18 07:50 Albumin 3.5 g/dl (3.4-5.0) 08/14/18 07:50 RPR Titer Nonreactive (NONREACTIVE) 08/14/18 07:50 lab noted Assessment: 08/15/18 11:05 alcohol withdrawal sx Plan: continue alcohol detox
[2018-08-15] MEDS: TRIAMCINOLONE ACET 0.1% CREAM 15 GM TUBE TP SCH ×2 (18:30→22:32)
[2018-08-15] MEDS: THIAMINE HCL 100 MG TABLET (FP) PO SCH (22:33)
[2018-08-16] MEDS ORDERED: chlordiazePOXIDE HCL 10 MG CAPSULE PO PRN
[2018-08-16] MEDS ORDERED: chlordiazePOXIDE HCL 10 MG CAPSULE PO SCH (05:00)
[2018-08-16 09:18] VITALS: BP 127/79; PULSE 82; TEMP 98.1
--- NOTE | 2018-08-16 15:25 | PN ---
[facility] CIWA - CIWA Score Nausea/Vomitin-No Nausea/No Vomiting Muscle Tremors: None Anxiety: 5 Agitation: 4-Moderately Restless Paroxysmal Sweats: 2 Orientation: 0-Oriented Tacttile Disturbances: 0-None Auditory Disturbances: 0-None Visual Disturbances: 0-None Headache: 0-None Present CIWA-Ar Total Score: 11 S Progress Note (SOAP) Subjective: Anxious, Agitated, Sweating. Objective: PATIENT A & O X 3, OBSERVED AMBULATING ON UNIT UNASSISTED. IN NO ACUTE DISTRESS. 08/16/18 15:26 Vital Signs Temperature 98.1 F 08/16/18 09:18 Pulse Rate 82 08/16/18 09:18 Respiratory Rate 18 08/16/18 09:18 Blood Pressure 127/79 08/16/18 09:18 O2 Sat by Pulse Oximetry (%) Laboratory Tests 08/14/18 08/14/18 08/14/18 07:50 07:50 07:50 WBC 3.5 L RBC 4.18 Hgb 12.5 Hct 37.0 MCV 88.4 MCH 29.9 MCHC 33.8 RDW 14.4 Plt Count 127 L MPV 10.1 Sodium 141 Potassium 4.0 Chloride 106 Carbon Dioxide 30 Anion Gap 4 L BUN 10.8 Creatinine 0.9 Est GFR (CKD-EPI)AfAm 109.50 Est GFR (CKD-EPI)NonAf 94.48 Random Glucose 109 H Calcium 8.6 Total Bilirubin 0.3 AST 32 ALT 40 Alkaline Phosphatase 68 Total Protein 6.9 Albumin 3.5 RPR Titer Nonreactive LABS NOTED. PATIENT HAS HAD LOW PLATELET AND LOW WBC LEVELS ON PREVIOUS ADMISSIONS. 08/16/18 15:27 Assessment: 08/16/18 15:27 WITHDRAWAL SYMPTOMS. THROMBOCYTOPENIA. LEUKOPENIA. Plan: CONTINUE DETOX.
--- NOTE | 2018-08-16 15:39 | DS ---
[facility] Detox Discharge Summary Admission Date: 08/13/18 Discharge Date: 08/16/18 - History Present History: Alcohol Dependence, Cannabis Dependence, Cocaine Dependence Additional Comments: PATIENT DOES NOT WISH TO REMAIN TO COMPLETE DETOX REGIMEN. RISKS OF LEAVING DETOX UNIT AGAINST MEDICAL ADVICE AND PRIOR TO COMPLETION OF DETOX REGIMEN EXPLAINED TO PATIENT. PATIENT ADVISED TO GO IMMEDIATELY TO NEAREST ER SHOULD ANY INTOLERABLE WITHDRAWAL / DETOX SYMPTOMS DEVELOP AT ANY TIME. PATIENT VERBALIZED UNDERSTANDING OF ALL INFORMATION / RECOMMENDATIONS PRESENTED TO HIM PRIOR TO DEPARTURE FROM DETOX UNIT. PATIENT DECLINED OFFER OF MEDICATION PRESCRIPTION FOR HOME MEDICATION AT TIME IN WHICH HE WAS LEAVING DETOX, NOTING THAT HE CURRENTLY HAS ADEQUATE SUPPLIES OF ALL PRESCRIBED HOME MEDICATIONS AT HOME. PATIENT LEFT DETOX UNIT IN STABLE MEDICAL CONDITION. Pertinent Past History: Asthma, Hyperchoelsterolemia, Thrombocytopenia, Leukopenia, History Of M.I., H.I.V. - Physical Exam Results Vital Signs: Vital Signs Temperature 98.1 F 08/16/18 09:18 Pulse Rate 82 08/16/18 09:18 Respiratory Rate 18 08/16/18 09:18 Blood Pressure 127/79 08/16/18 09:18 O2 Sat by Pulse Oximetry (%) Pertinent Admission Physical Exam Findings: WITHDRAWAL SYMPTOMS. Laboratory Tests 08/14/18 08/14/18 08/14/18 07:50 07:50 07:50 WBC 3.5 L RBC 4.18 Hgb 12.5 Hct 37.0 MCV 88.4 MCH 29.9 MCHC 33.8 RDW 14.4 Plt Count 127 L MPV 10.1 Sodium 141 Potassium 4.0 Chloride 106 Carbon Dioxide 30 Anion Gap 4 L BUN 10.8 Creatinine 0.9 Est GFR (CKD-EPI)AfAm 109.50 Est GFR (CKD-EPI)NonAf 94.48 Random Glucose 109 H Calcium 8.6 Total Bilirubin 0.3 AST 32 ALT 40 Alkaline Phosphatase 68 Total Protein 6.9 Albumin 3.5 RPR Titer Nonreactive LABS NOTED. - Treatment Hospital Course: Detox Protocol Followed, Detoxed Safely - Medication Discharge Medications: Ambulatory Orders Aspirin [ASA -] 81 mg PO DAILY 08/25/16 Elviteg/Cob/Emtri/Tenof Alafen [Genvoya Tablet] 1 each PO DAILY 10/19/17 Albuterol Sulfate Inhaler - [Ventolin HFA Inhaler -] 2 inh PO Q4H PRN #1 inhaler 10/22/17 Ticagrelor [Brilinta] 90 mg PO BID 10/23/17 Atorvastatin Ca [Lipitor] 80 mg PO HS 05/26/18 Losartan Potassium [Cozaar -] 25 mg PO DAILY 05/26/18 Metoprolol Succinate [Toprol XL -] 25 mg PO DAILY 05/26/18 Cholecalciferol (Vitamin D3) [Vitamin D3] 1 tablet PO DAILY 08/13/18 Dextran 70/Hypromellose [Artificials Tears Drops] 1 drop OU Q4HWA PRN 08/13/18 Diphenhydramine [Benadryl -] 50 mg PO HS PRN 08/13/18 Triamcinolone 0.1% Ointment [Aristocort 0.1% Ointment -] 1 applic TP BID - Diagnosis (1) Cocaine dependence, uncomplicated Status: Acute (2) Cannabis dependence with withdrawal Status: Acute (3) Alcohol dependence with withdrawal Status: Acute Qualifiers: Complication of substance-induced condition: uncomplicated Qualified Code(s ): F10.230 - Alcohol dependence with withdrawal, uncomplicated - AMA Did Patient Leave Against Medical Advice: Yes (PATIENT DID NOT WISH TO REMAIN TO COMPLETE DETOX REGIMEN.)
[2018-08-17] MEDS ORDERED: chlordiazePOXIDE HCL 10 MG CAPSULE PO ONE (05:00)
== END 2018-08-16 09:24 | disposition left against medical advice (07) | DRG 770 ==
LOC: YASAS 13:41 → Y3N 18:44
PROVIDERS: ADMIT Surgery; ATTEND Surgery
PROC: HZ2ZZZZ Detoxification Services for Substance Abuse Treatment (ICD-10-PCS; principal; 2018-08-13)
DX: F10.230 Alcohol dependence with withdrawal, uncomplicated (principal); F14.20 Cocaine dependence, uncomplicated; F12.20 Cannabis dependence, uncomplicated; F17.210 Nicotine dependence, cigarettes, uncomplicated; Z21 Asymptomatic human immunodeficiency virus [HIV] infection status; I25.10 Atherosclerotic heart disease of native coronary artery without angina pectoris; I10 Essential (primary) hypertension; I25.2 Old myocardial infarction; D69.6 Thrombocytopenia, unspecified; D72.819 Decreased white blood cell count, unspecified; E78.00 Pure hypercholesterolemia, unspecified; J45.909 Unspecified asthma, uncomplicated
CPT/HCPCS: 36415; 80053; 85027; 86593

== ENCOUNTER 2018-12-06 15:31 | Inpatient (IN) | payer OTHER ==
[2018-12-06 16:59] VITALS: BMI 31.0
--- NOTE | 2018-12-06 19:17 | HP ---
CIWA Score Nausea/Vomitin-No Nausea/No Vomiting Muscle Tremors: 4-Moderate,w/Arms Extend Anxiety: 1-Mildly Anxious Agitation: 3 Paroxysmal Sweats: 3 (Increased facial moisture) Orientation: 0-Oriented Tacttile Disturbances: 0-None Auditory Disturbances: 0-None Visual Disturbances: 0-None Headache: 0-None Present CIWA-Ar Total Score: 11 - Admission Criteria OASAS Guidelines: Admission for Medically Managed Detox: Requires at least one of the followin. CIWA greater than 12 2. Seizures within the past 24 hours 3. Delirium tremens within the past 24 hours 4. Hallucinations within the past 24 hours 5. Acute intervention needed for co occurring medical disorder 6. Acute intervention needed for co occurring psychiatric disorder 7. Severe withdrawal that cannot be handled at a lower level of care (continued vomiting, continued diarrhea, abnormal vital signs) requiring intravenous medication and/or fluids 8. Patient presents the following: Acute intervention needed for co-occurring med or psych disorder (HIV +) Admission Criteria Met: Admission criteria met Admitting History and Physical - Smoking History Smoking history: Current every day smoker Have you smoked in the past 12 months: Yes Aproximately how many cigarettes per day: 7 - Alcohol/Substance Use Hx Alcohol Use: Yes Admission ROS BHS - HPI Chief Complaint: Here for detox Allergies/Adverse Reactions: Allergies Allergy/AdvReac Type Severity Reaction Status Date / Time No Known Allergies Allergy Verified 08/13/18 16:39 History of Present Illness: 58 yo presents with withdrawal symptoms seeking alcohol detox. YOVANI: 0.0 Utox: + THC/BZO/ALCIDES States discharged 08/16/18 and stayed sober about 1 month. CXR: 10/23/18: Neg: Currently symptomatic EK04/07/18: Reviewed. Denies seizures, blackouts, overdoses. Alcohol use began at age 12. Currently 6-16 oz beers daily. States has increased to this x 1 month. Last drink about 1 pm today. Marijuana use began at age 12. I bag daily Cocaine(Crack) use began at age 25. 1-2 x/month Nicotine use began at age 10. Currently smokes 1/2 PPD. PMHx: Itching of skin; IA, Hx: Cardiac stent; Denies Asthma or HTN; MHHx: Insomnia. Mild depression. Denies thoughts of harming self or others. SHx: Domiciled. Unemployed. Denies legal issues Patient Name: Danny Mayberry Date: 1960 Address: [address] [place] [id number] Sex: Male Rx Written Rx Dispensed Drug Quantity Days Supply Prescriber Name 10/17/2018 10/21/2018 chlordiazepoxide 10 mg capsule 2 2 Mindi Waterman MD) 01/17/2018 01/19/2018 chlordiazepoxide 10 mg capsule 10 3 Jeannie Emerson MD 01/14/2018 01/15/2018 chlordiazepoxide 10 mg capsule 12 4 Jeannie Emerson MD Patient Name: Danny Mayberry Date: 1960 Address: [address] [address] Sex: Male Rx Written Rx Dispensed Drug Quantity Days Supply Prescriber Name 12/27/2017 12/27/2017 chlordiazepoxide 25 mg capsule 24 5 Kay Martins NP Exam Limitations: No Limitations - Ebola screening Have you traveled outside of the country in the last 21 days: No Have you had contact with anyone from an Ebola affected area: No Have you been sick,other than usual withdrawal symptoms: No Do you have a fever: No - Review of Systems Constitutional: Chills, Diaphoresis, Changes in sleep (Difficulty staying asleep ), Weight Stable EENT: reports: No Symptoms Reported Respiratory: reports: No Symptoms reported Cardiac: reports: No Symptoms Reported GI: reports: Diarrhea (soft MB 2 days ago), Indigestion (Heart burn) : reports: No Symptoms Reported Musculoskeletal: reports: No Symptoms Reported Integumentary: reports: Pruritus (Mostly legs itch) Endocrine: reports: No Symptoms Reported Hematology: reports: Anemia (HIV + (non-compliant w/ meds)) Psychiatric: reports: Orientated x3, Agitated, Anxious, Depressed Patient History - Patient Medical History Hx Anemia: No Hx Asthma: Yes (not using inhaler currently) Hx Chronic Obstructive Pulmonary Disease (COPD): No Hx Cancer: No Hx Cardiac Disorders: Yes (hx IA May 2016) Hx Congestive Heart Failure: No Hx Hypertension: No Hx Hypercholesterolemia: Yes (no meds currently ) Hx Pacemaker: No HX Cerebrovascular Accident: No Hx Seizures: No Hx Dementia: No Hx Diabetes: No Hx Gastrointestinal Disorders: No Hx Liver Disease: No Hx Genitourinary Disorders: No Hx Sexually Transmitted Disorders: Yes (HIV) Hx Renal Disease (ESRD): No Hx Thyroid Disease: No Hx Human Immunodeficiency Virus (HIV): Yes (2002, LAST CD4 -400, vl- undetectable , no OI's ) Hx Hepatitis C: No Hx Depression: No Hx Suicide Attempt: No (denies) Hx Bipolar Disorder: No Hx Schizophrenia: No - Patient Surgical History Past Surgical History: No Hx Neurologic Surgery: No Hx Cataract Extraction: No Hx Cardiac Surgery: No Hx Lung Surgery: No Hx Breast Surgery: No Hx Breast Biopsy: No Hx Abdominal Surgery: No Hx Appendectomy: No Hx Cholecystectomy: No Hx Genitourinary Surgery: No Hx Section: No Hx Orthopedic Surgery: No Anesthesia Reaction: No - PPD History Previous Implant?: Yes (CXR 10/23/17 Neg ) Documented Results: Positive w/o proof Implanted On Prior R Admission?: No PPD to be Administered?: No - Smoking Cessation Smoking history: Current every day smoker Have you smoked in the past 12 months: Yes Aproximately how many cigarettes per day: 10 Cigars Per Day: 0 Hx Chewing Tobacco Use: No Initiated information on smoking cessation: Yes 'Breaking Loose' booklet given: 12/06/18 - Substance & Tx. History Hx Alcohol Use: Yes Hx Substance Use: Yes Substance Use Type: Alcohol, Cocaine, Marijuana Hx Substance Use Treatment: Yes (detox, rehab) - Substances abused Alcohol Substance route: Oral Frequency: Daily Amount used: 6 pack 16oz beers Age of first use: 12 Date of last use: 12/06/18 Crack Substance route: Smoking Frequency: 1-3 times last 30 days Amount used: 10 vials Age of first use: 25 Date of last use: 12/04/18 Marijuana/Hashish Substance route: Smoking Frequency: Daily Amount used: 1 bag Age of first use: 12 Date of last use: 12/06/18 Admission Physical Exam BHS - Vital Signs Vital Signs: Vital Signs - 24 hr 12/06/18 16:55 Temperature 97.6 F Pulse Rate 77 Respiratory 16 Rate Blood Pressure 107/73 - Physical General Appearance: Yes: Nourished, Mild Distress, Tremorous, Irritable, Anxious HEENTM: Yes: EOMI, Hearing grossly Normal, Normal ENT Inspection, Normocephalic , Normal Voice, ARTI, Pharynx Normal Respiratory: Yes: Lungs Clear (Pulse ox = 99 %), Normal Breath Sounds, No Respiratory Distress Neck: Yes: No masses,lesions,Nodules, Supple Breast: Yes: Breast Exam Deferred Cardiology: Yes: Regular Rhythm, S1, S2, Bradycardia (HR: 58), Murmur Abdominal: Yes: Normal Bowel Sounds, Non Tender, Soft Genitourinary: Yes: Within Normal Limits Back: Yes: Normal Inspection Musculoskeletal: Yes: full range of Motion, Gait Steady Extremities: Yes: Normal Capillary Refill, Tremors (Mild tremors) 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 intact, Fully Oriented, Alert, Motor Strength 5/5 Integumentary: Yes: Normal Color, Warm, Other (Scratch odonnell BLR (R) > (L)) Lymphatic: Yes: Within Normal Limits - Diagnostic (1) Alcohol dependence with withdrawal Current Visit: Yes Status: Acute Qualifiers: Complication of substance-induced condition: uncomplicated Qualified Code(s ): F10.230 - Alcohol dependence with withdrawal, uncomplicated (2) Cocaine dependence, uncomplicated Current Visit: Yes Status: Chronic (3) Cannabis dependence Current Visit: Yes Status: Chronic (4) History of positive PPD Current Visit: Yes Status: Chronic (5) Human immunodeficiency virus infection Current Visit: Yes Status: Chronic Comment: not compliant with his medication. (6) Murmur, cardiac Current Visit: Yes Status: Chronic (7) History of heart artery stent Current Visit: Yes Status: Chronic (8) Nicotine dependence Current Visit: Yes Status: Chronic Qualifiers: Nicotine product type: cigarettes Substance use status: in withdrawal Qualified Code(s): F17.213 - Nicotine dependence, cigarettes, with withdrawal (9) Obesity (BMI 30-39.9) Current Visit: Yes Status: Chronic Cleared for Admission [facility] - Detox or Rehab [facility] Level of Care: Medically Managed Detox Regimen/Protocol: Librium Claeared for Rehab Admission: No Breathalyzer - Breathalyzer Breathalyzer: 0 Urine Drug Screen - Test Device Lot number: [id number] Expiration date: 08/04/20 - Control Is test valid?: Yes - Results Drug screen NEGATIVE: No Urine drug screen results: THC-Marijuana, ALCIDES-Cocaine, BZO-Benzodiazepines Inpatient Rehab Admission - Rehab Decision to Admit Inpatient rehab admission?: No
[2018-12-06] MEDS ORDERED: MAG HYDROX/AL HYDROX/SIMETH 30 ML UNIT-DOSE CUP PO PRN (21:58)
[2018-12-06] MEDS ORDERED: MAGNESIUM HYDROX 2400MG/30ML ORAL SUSPENSION 30 ML CUP PO PRN (21:58)
[2018-12-06] MEDS ORDERED: BISMUTH SUBSALICYLATE 524 MG/30 ML UD PO PRN (21:58)
[2018-12-06] MEDS ORDERED: NICOTINE POLACRILEX 2 MG GUM BUC PRN (21:58)
[2018-12-06] MEDS ORDERED: ACETAMINOPHEN 325 MG TABLET (FP) PO PRN ×2 (21:58)
[2018-12-06] MEDS ORDERED: MENTHOL/PHENOL 1 EACH UD MM PRN (21:58)
[2018-12-06] MEDS ORDERED: MAGNESIUM CITRATE 300 ML BOTTLE PO PRN (21:58)
[2018-12-06] MEDS ORDERED: hydrOXYzine PAMOATE 25 MG CAPSULE (FP) PO PRN (21:58)
[2018-12-06] MEDS ORDERED: chlordiazePOXIDE HCL 25 MG CAPSULE PO ONE (22:30)
[2018-12-06] MEDS: THIAMINE HCL 100 MG TABLET (FP) PO SCH (22:56)
[2018-12-07] MEDS ORDERED: chlordiazePOXIDE HCL 10 MG CAPSULE PO PRN (00:05)
[2018-12-07] MEDS: chlordiazePOXIDE HCL 25 MG CAPSULE PO SCH ×3 (05:12→22:11)
--- NOTE | 2018-12-07 09:38 | PN ---
S CIWA - CIWA Score Nausea/Vomitin-No Nausea/No Vomiting Muscle Tremors: 2 Anxiety: 3 Agitation: 0-Normal Activity Paroxysmal Sweats: 3 Orientation: 0-Oriented Tacttile Disturbances: 0-None Auditory Disturbances: 0-None Visual Disturbances: 0-None Headache: 1-Very Mild CIWA-Ar Total Score: 9 BHS Progress Note (SOAP) Subjective: c/o sweats, anxiety, shakes, and headache. Objective: 12/07/18 09:36 Vital Signs 12/07/18 12/07/18 12/07/18 03:30 06:01 09:25 Temperature 97.8 F 96.9 F L Pulse Rate 65 81 Respiratory 18 18 18 Rate Blood Pressure 104/66 121/80 Labs pending. Assessment: 12/07/18 09:37 AOX3, in no acute respiratory distress. Full ROM, ambulating in the unit. Withdrawal symptoms. Plan: continue detox.
[2018-12-07 09:55] LABS: HEMATOCRIT 35.4 % (35.4-49); HEMOGLOBIN 11.9 GM/dL (11.7-16.9); MCHC 33.7 g/dl (32.0-35.9); MEAN CELL VOLUME 89.3 fl (80-96); MEAN PLT VOLUME 10.1 fl (7.5-11.1); PLATELET COUNT 149 K/MM3 (134-434); RBC 3.97 M/mm3 (4.00-5.60); RDW 14.7 % (11.9-15.9); WHITE BLOOD COUNT 4.7 K/mm3 (4.0-10.0)
[2018-12-07 10:08] LABS: ALBUMIN 3.3 g/dl (3.4-5.0); BILIRUBIN,TOTAL 0.4 mg/dL (0.2-1); BLOOD UREA NITROGEN 13.5 mg/dL (7-18); CALCIUM 8.5 mg/dL (8.5-10.1); CREATININE 0.9 mg/dL (0.55-1.3); POTASSIUM 3.8 mmol/L (3.5-5.1); TOT PROT 6.5 g/dl (6.4-8.2)
[2018-12-07] MEDS: ASPIRIN 81 MG CHEWABLE TABLETS PO SCH (10:20)
[2018-12-07] MEDS: PRENATAL VITAMINS W/ FOLIC ACID TABLET (FP) PO SCH (10:20)
[2018-12-07] MEDS: NICOTINE 14 MG/24 HOURS TOPICAL PATCH TD SCH (10:20)
[2018-12-07] MEDS: TICAGRELOR 90 MG TABLET PO SCH ×2 (10:20→22:11)
[2018-12-07] MEDS: VITAMINS A AND D TOPICAL OINTMENT 60 GM TUBE TP PRN ×2 (10:21→22:13)
[2018-12-07] MEDS: ARTIFICIAL TEARS (POLYVINYL ALCOHOL) OPTH DROPS OU PRN ×2 (10:22→17:40)
[2018-12-07] MEDS: THIAMINE HCL 100 MG TABLET (FP) PO SCH (22:11)
[2018-12-07] MEDS: MELATONIN 5 MG TABLETS PO PRN (22:12)
[2018-12-08] MEDS ORDERED: chlordiazePOXIDE HCL 10 MG CAPSULE PO PRN
[2018-12-08] MEDS: chlordiazePOXIDE 5 MG CAPSULE PO SCH ×3 (05:09→22:05)
[2018-12-08] MEDS: TICAGRELOR 90 MG TABLET PO SCH ×2 (10:05→22:05)
[2018-12-08] MEDS: ASPIRIN 81 MG CHEWABLE TABLETS PO SCH (10:05)
[2018-12-08] MEDS: ARTIFICIAL TEARS (POLYVINYL ALCOHOL) OPTH DROPS OU PRN (10:05)
[2018-12-08] MEDS: PRENATAL VITAMINS W/ FOLIC ACID TABLET (FP) PO SCH (10:05)
[2018-12-08] MEDS: VITAMINS A AND D TOPICAL OINTMENT 60 GM TUBE TP PRN (10:06)
[2018-12-08] MEDS: NICOTINE 14 MG/24 HOURS TOPICAL PATCH TD SCH (10:06)
--- NOTE | 2018-12-08 14:38 | PN ---
S CIWA - CIWA Score Nausea/Vomitin-No Nausea/No Vomiting Muscle Tremors: 2 Anxiety: 2 Agitation: 2 Paroxysmal Sweats: No Perspiration Orientation: 0-Oriented Tacttile Disturbances: 0-None Auditory Disturbances: 0-None Visual Disturbances: 0-None Headache: 0-None Present CIWA-Ar Total Score: 6 BHS Progress Note (SOAP) Subjective: 58 years old male admitted on 12/06/18 for alcohol withdrawal sx management treated with librium detox regimen patient tolerated well social with peers in day room attend group discuss aftercare with staff Objective: 12/08/18 14:43 Vital Signs Temperature 97.8 F 12/08/18 13:30 Pulse Rate 57 L 12/08/18 13:30 Respiratory Rate 18 12/08/18 13:30 Blood Pressure 104/68 12/08/18 13:30 O2 Sat by Pulse Oximetry (%) Laboratory Last Values WBC 4.7 K/mm3 (4.0-10.0) 12/07/18 07:45 RBC 3.97 M/mm3 (4.00-5.60) L 12/07/18 07:45 Hgb 11.9 GM/dL (11.7-16.9) 12/07/18 07:45 Hct 35.4 % (35.4-49) 12/07/18 07:45 MCV 89.3 fl (80-96) 12/07/18 07:45 MCH 30.0 pg (25.7-33.7) 12/07/18 07:45 MCHC 33.7 g/dl (32.0-35.9) 12/07/18 07:45 RDW 14.7 % (11.9-15.9) 12/07/18 07:45 Plt Count 149 K/MM3 (134-434) 12/07/18 07:45 MPV 10.1 fl (7.5-11.1) 12/07/18 07:45 Sodium 141 mmol/L (136-145) 12/07/18 07:45 Potassium 3.8 mmol/L (3.5-5.1) 12/07/18 07:45 Chloride 107 mmol/L (98-107) 12/07/18 07:45 Carbon Dioxide 28 mmol/L (21-32) 12/07/18 07:45 Anion Gap 6 MMOL/L (8-16) L 12/07/18 07:45 BUN 13.5 mg/dL (7-18) 12/07/18 07:45 Creatinine 0.9 mg/dL (0.55-1.3) 12/07/18 07:45 Est GFR (CKD-EPI)AfAm 108.73 12/07/18 07:45 Est GFR (CKD-EPI)NonAf 93.82 12/07/18 07:45 Random Glucose 100 mg/dL (74-106) 12/07/18 07:45 Calcium 8.5 mg/dL (8.5-10.1) 12/07/18 07:45 Total Bilirubin 0.4 mg/dL (0.2-1) 12/07/18 07:45 AST 29 U/L (15-37) 12/07/18 07:45 ALT 29 U/L (13-61) 12/07/18 07:45 Alkaline Phosphatase 64 U/L (45-117) 12/07/18 07:45 Total Protein 6.5 g/dl (6.4-8.2) 12/07/18 07:45 Albumin 3.3 g/dl (3.4-5.0) L 12/07/18 07:45 lab noted Assessment: 12/08/18 14:43 alcohol withdrawal sx Plan: continue librium detox regimen
[2018-12-08] MEDS: MELATONIN 5 MG TABLETS PO PRN (22:05)
[2018-12-08] MEDS: THIAMINE HCL 100 MG TABLET (FP) PO SCH (22:05)
[2018-12-09] MEDS ORDERED: chlordiazePOXIDE HCL 10 MG CAPSULE PO ONE (05:00)
[2018-12-09] MEDS ORDERED: chlordiazePOXIDE HCL 10 MG CAPSULE PO SCH (05:00)
--- NOTE | 2018-12-09 09:07 | DS ---
[facility] Detox Discharge Summary Admission Date: 12/06/18 Discharge Date: 12/09/18 - History Present History: Alcohol Dependence Additional Comments: prefers to leave one day early to alcohol rehab today 58 years old male admitted on 12/06/18 for alcohol withdrawal sx management treated with librium detox regimen patient tolerated well patient is alert oriented x 3 respiratory clear lung bilaterally on auscultation abdomen soft no rebound tenderness extremities full range of motion - Physical Exam Results Vital Signs: Vital Signs Temperature 97.6 F 12/09/18 06:13 Pulse Rate 58 L 12/09/18 06:13 Respiratory Rate 18 12/09/18 06:30 Blood Pressure 101/65 12/09/18 06:13 O2 Sat by Pulse Oximetry (%) Pertinent Admission Physical Exam Findings: alcohol withdrawal sx Laboratory Last Values WBC 4.7 K/mm3 (4.0-10.0) 12/07/18 07:45 RBC 3.97 M/mm3 (4.00-5.60) L 12/07/18 07:45 Hgb 11.9 GM/dL (11.7-16.9) 12/07/18 07:45 Hct 35.4 % (35.4-49) 12/07/18 07:45 MCV 89.3 fl (80-96) 12/07/18 07:45 MCH 30.0 pg (25.7-33.7) 12/07/18 07:45 MCHC 33.7 g/dl (32.0-35.9) 12/07/18 07:45 RDW 14.7 % (11.9-15.9) 12/07/18 07:45 Plt Count 149 K/MM3 (134-434) 12/07/18 07:45 MPV 10.1 fl (7.5-11.1) 12/07/18 07:45 Sodium 141 mmol/L (136-145) 12/07/18 07:45 Potassium 3.8 mmol/L (3.5-5.1) 12/07/18 07:45 Chloride 107 mmol/L (98-107) 12/07/18 07:45 Carbon Dioxide 28 mmol/L (21-32) 12/07/18 07:45 Anion Gap 6 MMOL/L (8-16) L 12/07/18 07:45 BUN 13.5 mg/dL (7-18) 12/07/18 07:45 Creatinine 0.9 mg/dL (0.55-1.3) 12/07/18 07:45 Est GFR (CKD-EPI)AfAm 108.73 12/07/18 07:45 Est GFR (CKD-EPI)NonAf 93.82 12/07/18 07:45 Random Glucose 100 mg/dL (74-106) 12/07/18 07:45 Calcium 8.5 mg/dL (8.5-10.1) 12/07/18 07:45 Total Bilirubin 0.4 mg/dL (0.2-1) 12/07/18 07:45 AST 29 U/L (15-37) 12/07/18 07:45 ALT 29 U/L (13-61) 12/07/18 07:45 Alkaline Phosphatase 64 U/L (45-117) 12/07/18 07:45 Total Protein 6.5 g/dl (6.4-8.2) 12/07/18 07:45 Albumin 3.3 g/dl (3.4-5.0) L 12/07/18 07:45 lab noted - Treatment Hospital Course: Detox Protocol Followed, Detoxed Safely, Responded well, Discharged Condition Good, Rehab Referral Accepted Patient has Accepted a Rehab Referral to: [facility] - Medication Discharge Medications: Ambulatory Orders Aspirin [ASA -] 81 mg PO DAILY 08/25/16 Ticagrelor [Brilinta -] 90 mg PO BID 10/23/17 Cholecalciferol (Vitamin D3) [Vitamin D3] 1 tablet PO DAILY 08/13/18 Dextran 70/Hypromellose [Artificials Tears Drops] 1 drop OU Q4HWA PRN 08/13/18 Diphenhydramine [Benadryl Capsule -] 50 mg PO HS PRN 08/13/18 Triamcinolone 0.1% Ointment [Aristocort 0.1% Ointment -] 1 applic TP BID - Diagnosis (1) Alcohol dependence with withdrawal, uncomplicated Current Visit: Yes Status: Acute (2) History of positive PPD Current Visit: Yes Status: Resolved (3) Human immunodeficiency virus infection Current Visit: Yes Status: Chronic (4) Nicotine dependence Current Visit: Yes Status: Acute Qualifiers: Nicotine product type: cigarettes Substance use status: in withdrawal Qualified Code(s): F17.213 - Nicotine dependence, cigarettes, with withdrawal (5) Obesity (BMI 30-39.9) Current Visit: Yes Status: Chronic (6) Asthma Current Visit: Yes Status: Chronic Qualifiers: Asthma severity: mild Asthma persistence: intermittent Asthma complication type: with status asthmaticus Qualified Code(s): J45.22 - Mild intermittent asthma with status asthmaticus (7) HTN (hypertension) Current Visit: Yes Status: Chronic Qualifiers: Hypertension type: essential hypertension Qualified Code(s): I10 - Essential (primary) hypertension (8) PPD positive Current Visit: Yes Status: Resolved - AMA Did Patient Leave Against Medical Advice: No CIWA Score - CIWA Score Nausea/Vomitin-No Nausea/No Vomiting Muscle Tremors: 1-None Visible, but [place] Anxiety: 1-Mildly Anxious Agitation: 1-Slight > Activity Paroxysmal Sweats: No Perspiration Orientation: 0-Oriented Tacttile Disturbances: 0-None Auditory Disturbances: 0-None Visual Disturbances: 0-None Headache: 0-None Present CIWA-Ar Total Score: 3
[2018-12-09 09:18] VITALS: BP 119/78; PULSE 82; TEMP 97.2
[2018-12-10] MEDS ORDERED: chlordiazePOXIDE HCL 10 MG CAPSULE PO ONE (05:00)
== END 2018-12-09 09:36 | disposition home or self-care (01) | DRG 774 ==
LOC: YASAS 15:31 → Y3N 21:52
PROVIDERS: ADMIT Allergy & Immunology; ATTEND Allergy & Immunology
PROC: HZ2ZZZZ Detoxification Services for Substance Abuse Treatment (ICD-10-PCS; principal; 2018-12-06)
DX: F10.230 Alcohol dependence with withdrawal, uncomplicated (principal); F14.20 Cocaine dependence, uncomplicated; F12.20 Cannabis dependence, uncomplicated; F17.213 Nicotine dependence, cigarettes, with withdrawal; I10 Essential (primary) hypertension; J45.22 Mild intermittent asthma with status asthmaticus; R76.11 Nonspecific reaction to tuberculin skin test without active tuberculosis; Z21 Asymptomatic human immunodeficiency virus [HIV] infection status; I25.2 Old myocardial infarction; E66.9 Obesity, unspecified; Z68.31 Body mass index [BMI] 31.0-31.9, adult; E78.00 Pure hypercholesterolemia, unspecified; R00.1 Bradycardia, unspecified; R01.1 Cardiac murmur, unspecified; Z95.5 Presence of coronary angioplasty implant and graft
CPT/HCPCS: 36415; 80053; 85027

== ENCOUNTER 2019-02-15 10:14 | Inpatient (IN) | payer OTHER ==
[2019-02-15 10:38] VITALS: BMI 31.7
--- NOTE | 2019-02-15 11:30 | HP ---
CIWA Score Nausea/Vomitin Muscle Tremors: 3 Anxiety: 2 Agitation: 2 Paroxysmal Sweats: 2 Orientation: 0-Oriented Tacttile Disturbances: 2-Mild Itch/Numbness/Burn Auditory Disturbances: 0-None Visual Disturbances: 0-None Headache: 1-Very Mild CIWA-Ar Total Score: 14 - Admission Criteria OASAS Guidelines: Admission for Medically Managed Detox: Requires at least one of the followin. CIWA greater than 12 2. Seizures within the past 24 hours 3. Delirium tremens within the past 24 hours 4. Hallucinations within the past 24 hours 5. Acute intervention needed for co occurring medical disorder 6. Acute intervention needed for co occurring psychiatric disorder 7. Severe withdrawal that cannot be handled at a lower level of care (continued vomiting, continued diarrhea, abnormal vital signs) requiring intravenous medication and/or fluids 8. Patient presents the following: CIWA greater than 12 Admission Criteria Met: Admission criteria met Admitting History and Physical - Smoking History Smoking history: Current every day smoker Have you smoked in the past 12 months: Yes Aproximately how many cigarettes per day: 10 - Alcohol/Substance Use Hx Alcohol Use: Yes Admission ROS [facility] Chief Complaint: I need detox Allergies/Adverse Reactions: Allergies Allergy/AdvReac Type Severity Reaction Status Date / Time No Known Allergies Allergy Verified 02/15/19 10:27 History of Present Illness: 58 year old man with alcohol dependence presents for detox, his last admission at [facility] was between 12/06 and 12/09/18. He denies seizures or blackouts. Patient is PPD positive, last documented chest x-ray was in October of 2017. Patient reports he recently had a chest x-ray which he can have someone fax on Sunday. Exam Limitations: No Limitations - Ebola screening Have you traveled outside of the country in the last 21 days: No (N) Have you had contact with anyone from an Ebola affected area: No Have you been sick,other than usual withdrawal symptoms: No Do you have a fever: No - Review of Systems Constitutional: Chills, Loss of Appetite, Changes in sleep, Weakness EENT: reports: Blurred Vision Respiratory: reports: No Symptoms reported Cardiac: reports: No Symptoms Reported GI: reports: Poor Appetite, Abdominal cramping : reports: No Symptoms Reported Musculoskeletal: reports: Back Pain, Joint Pain, Muscle Pain, Muscle Weakness Integumentary: reports: Sweating Neuro: reports: Numbness, Tremors Endocrine: reports: No Symptoms Reported Hematology: reports: No Symptoms Reported, Anemia Psychiatric: reports: Anxious, Depressed Other Systems: Reviewed and Negative Patient History - Patient Medical History Hx Anemia: No Hx Asthma: Yes Hx Chronic Obstructive Pulmonary Disease (COPD): No Hx Cancer: No Hx Cardiac Disorders: Yes (hx MS May 2016) Hx Congestive Heart Failure: No Hx Hypertension: No Hx Hypercholesterolemia: Yes (no meds currently ) Hx Pacemaker: No HX Cerebrovascular Accident: No Hx Seizures: No Hx Dementia: No Hx Diabetes: No Hx Gastrointestinal Disorders: No Hx Liver Disease: No Hx Genitourinary Disorders: No Hx Sexually Transmitted Disorders: Yes (HIV) Hx Renal Disease (ESRD): No Hx Thyroid Disease: No Hx Human Immunodeficiency Virus (HIV): Yes Hx Hepatitis C: No Hx Depression: Yes Hx Suicide Attempt: No Hx Bipolar Disorder: No Hx Schizophrenia: No - Patient Surgical History Past Surgical History: No - PPD History Previous Implant?: No Documented Results: Positive w/proof Implanted On Prior [facility] Admission?: No PPD to be Administered?: No - Smoking Cessation Smoking history: Current every day smoker Have you smoked in the past 12 months: Yes Aproximately how many cigarettes per day: 10 Cigars Per Day: 0 Hx Chewing Tobacco Use: No Initiated information on smoking cessation: Yes 'Breaking Loose' booklet given: 02/15/19 - Substances abused Alcohol Substance route: Oral Frequency: Daily Amount used: 6 (6 pack 16oz beers) Age of first use: 12 Date of last use: 02/15/19 Crack Substance route: Smoking Frequency: 1-3 times last 30 days Amount used: $100 Age of first use: 25 Date of last use: 02/05/19 Marijuana/Hashish Substance route: Smoking Frequency: Daily Amount used: 2-3 joints/day Age of first use: 12 Date of last use: 02/14/19 Admission Physical Exam BHS - Vital Signs Vital Signs: Vital Signs - 24 hr 02/15/19 10:22 Temperature 97.1 F L Pulse Rate 78 Respiratory 18 Rate Blood Pressure 130/86 - Physical General Appearance: Yes: No Apparent Distress, Nourished HEENTM: Yes: Hearing grossly Normal, Normocephalic, Normal Voice, ARTI Respiratory: Yes: Chest Non-Tender, Lungs Clear, Normal Breath Sounds, No Respiratory Distress, No Accessory Muscle Use Neck: Yes: No masses,lesions,Nodules, Supple Breast: Yes: Breast Exam Deferred Cardiology: Yes: Regular Rhythm, Regular Rate, S1, S2 Abdominal: Yes: Normal Bowel Sounds, Non Tender, Soft Genitourinary: Yes: Within Normal Limits Back: Yes: Normal Inspection Musculoskeletal: Yes: full range of Motion, Gait Steady, Back pain, Muscle Pain , Muscle weakness Extremities: Yes: Non-Tender, Tremors, Coldness 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 intact, Fully Oriented, Alert, Motor Strength 5/5, Normal Mood/Affect, Normal Response Integumentary: Yes: Clammy Lymphatic: Yes: Within Normal Limits - Diagnostic (1) Alcohol dependence with withdrawal, uncomplicated Current Visit: Yes Status: Acute (2) Cannabis dependence with withdrawal Current Visit: Yes Status: Acute (3) Nicotine dependence Current Visit: Yes Status: Acute Qualifiers: Nicotine product type: cigarettes Substance use status: uncomplicated Qualified Code(s): F17.210 - Nicotine dependence, cigarettes, uncomplicated (4) HTN (hypertension) Current Visit: Yes Status: Chronic Qualifiers: Hypertension type: essential hypertension Qualified Code(s): I10 - Essential (primary) hypertension (5) Human immunodeficiency virus infection Current Visit: Yes Status: Chronic Comment: not compliant with his medication. (6) Hypercholesterolemia Current Visit: No Status: Chronic (7) Dry eye syndrome Current Visit: Yes Status: Acute Qualifiers: Laterality: bilateral Qualified Code(s): H04.123 - Dry eye syndrome of bilateral lacrimal glands Cleared for Admission [facility] - Detox or Rehab [facility] Level of Care: Medically Managed Detox Regimen/Protocol: Librium Claeared for Rehab Admission: No Breathalyzer - Breathalyzer Breathalyzer: 0 Urine Drug Screen - Test Device Lot number: [id number] Expiration date: 09/04/20 - Control Is test valid?: Yes - Results Drug screen NEGATIVE: No Urine drug screen results: THC-Marijuana, ALCIDES-Cocaine, BZO-Benzodiazepines Inpatient Rehab Admission - Rehab Decision to Admit Inpatient rehab admission?: No
[2019-02-15] MEDS ORDERED: METHOCARBAMOL 500 MG TABLET PO PRN (11:36)
[2019-02-15] MEDS ORDERED: NICOTINE POLACRILEX 2 MG GUM BUC PRN (11:36)
[2019-02-15] MEDS ORDERED: IBUPROFEN 400 MG TABLET (FP) PO PRN (11:36)
[2019-02-15] MEDS ORDERED: MAGNESIUM CITRATE 300 ML BOTTLE PO PRN (11:36)
[2019-02-15] MEDS ORDERED: ACETAMINOPHEN 325 MG TABLET (FP) PO PRN ×2 (11:36)
[2019-02-15] MEDS ORDERED: MAGNESIUM HYDROX 2400MG/30ML ORAL SUSPENSION 30 ML CUP PO PRN (11:36)
[2019-02-15] MEDS ORDERED: chlordiazePOXIDE HCL 10 MG CAPSULE PO PRN (11:36)
[2019-02-15] MEDS ORDERED: MAG HYDROX/AL HYDROX/SIMETH 30 ML UNIT-DOSE CUP PO PRN (11:36)
[2019-02-15] MEDS ORDERED: ONDANSETRON *ODT* 4 MG TABLET SL PRN (11:36)
[2019-02-15] MEDS ORDERED: BISMUTH SUBSALICYLATE 524 MG/30 ML UD PO PRN (11:36)
[2019-02-15] MEDS ORDERED: hydrOXYzine PAMOATE 25 MG CAPSULE (FP) PO PRN (11:36)
[2019-02-15] MEDS ORDERED: MENTHOL/PHENOL 1 EACH UD MM PRN (11:36)
[2019-02-15] MEDS: chlordiazePOXIDE HCL 25 MG CAPSULE PO SCH ×2 (13:11→22:20)
[2019-02-15] MEDS: NICOTINE 14 MG/24 HOURS TOPICAL PATCH TD SCH (13:11)
[2019-02-15] MEDS ORDERED: ARTIFICIAL TEARS (POLYVINYL ALCOHOL) OPTH DROPS OU SCH (22:00)
[2019-02-15] MEDS: TETRAHYDROZOLINE HCL EYE DROPS OU SCH (22:18)
[2019-02-15] MEDS: THIAMINE HCL 100 MG TABLET (FP) PO SCH (22:19)
[2019-02-15] MEDS: MELATONIN 5 MG TABLETS PO PRN (22:20)
[2019-02-16] MEDS: chlordiazePOXIDE HCL 25 MG CAPSULE PO SCH ×3 (05:53→22:39)
[2019-02-16] MEDS ORDERED: chlordiazePOXIDE HCL 25 MG CAPSULE PO ONE (09:18)
--- NOTE | 2019-02-16 09:23 | PN ---
[facility] CIWA - CIWA Score Nausea/Vomitin-Mild Nausea/No Vomiting Muscle Tremors: 4-Moderate,w/Arms Extend Anxiety: 3 Agitation: 2 Paroxysmal Sweats: 1-Minimal Palms Moist Orientation: 1-Uncertain about Date (date of week) Tacttile Disturbances: 0-None Auditory Disturbances: 0-None Visual Disturbances: 1-Very Mild Sensitivity (to light) Headache: 0-None Present CIWA-Ar Total Score: 13 BHS Progress Note (SOAP) Subjective: 58 years old male admitted on 02/15/19 for alcohol withdrawal sx management treating with librium detox regimen feeling restlessness and anxiousness chart reviewed librium prn 10 mg adjusted to librium 25mg po prn librium 25mg po x 1 Objective: 02/16/19 09:22 Vital Signs Temperature 98.6 F 02/16/19 09:10 Pulse Rate 62 02/16/19 09:10 Respiratory Rate 18 02/16/19 09:10 Blood Pressure 122/85 02/16/19 09:10 O2 Sat by Pulse Oximetry (%) 02/16/19 09:23 lab pending Assessment: 02/16/19 09:23 alcohol withdrawal Plan: librium regimen
[2019-02-16 10:45] LABS: HEMOGLOBIN 13.9 GM/dL (11.7-16.9); MCH 29.8 pg (25.7-33.7); MCHC 33.2 g/dl (32.0-35.9); MEAN CELL VOLUME 89.9 fl (80-96); MEAN PLT VOLUME 10.9 fl (7.5-11.1); PLATELET COUNT 140 K/MM3 (134-434); RBC 4.67 M/mm3 (4.00-5.60); RDW 14.5 % (11.9-15.9); WHITE BLOOD COUNT 4.2 K/mm3 (4.0-10.0)
[2019-02-16 10:59] LABS: ALBUMIN 3.6 g/dl (3.4-5.0); BILIRUBIN,TOTAL 0.3 mg/dL (0.2-1); CALCIUM 8.9 mg/dL (8.5-10.1); CREATININE 0.9 mg/dL (0.55-1.3); POTASSIUM 4.5 mmol/L (3.5-5.1)
[2019-02-16] MEDS: NICOTINE 14 MG/24 HOURS TOPICAL PATCH TD SCH (11:09)
[2019-02-16] MEDS: TETRAHYDROZOLINE HCL EYE DROPS OU SCH ×2 (11:11→22:41)
[2019-02-16] MEDS: ASPIRIN 81 MG CHEWABLE TABLETS PO SCH (11:11)
[2019-02-16] MEDS: PRENATAL VITAMINS W/ FOLIC ACID TABLET (FP) PO SCH (11:11)
[2019-02-16] MEDS: CHOLECALCIFEROL (VIT D3) 1,000 UNIT (25 MCG) TABLET PO SCH (11:11)
[2019-02-16] MEDS: chlordiazePOXIDE HCL 25 MG CAPSULE PO PRN ×2 (14:27→22:43)
[2019-02-16] MEDS: THIAMINE HCL 100 MG TABLET (FP) PO SCH (22:39)
[2019-02-16] MEDS: MELATONIN 5 MG TABLETS PO PRN (22:44)
[2019-02-17] MEDS ORDERED: chlordiazePOXIDE 5 MG CAPSULE PO SCH (05:00)
[2019-02-17 07:30] VITALS: BP 108/73; PULSE 58; TEMP 97.8
[2019-02-17] MEDS: ASPIRIN 81 MG CHEWABLE TABLETS PO SCH (10:11)
[2019-02-17] MEDS: CHOLECALCIFEROL (VIT D3) 1,000 UNIT (25 MCG) TABLET PO SCH (10:11)
[2019-02-17] MEDS: TETRAHYDROZOLINE HCL EYE DROPS OU SCH (10:11)
[2019-02-17] MEDS: PRENATAL VITAMINS W/ FOLIC ACID TABLET (FP) PO SCH (10:11)
[2019-02-17] MEDS: NICOTINE 14 MG/24 HOURS TOPICAL PATCH TD SCH (10:11)
--- NOTE | 2019-02-17 11:15 | DS ---
[facility] Detox Discharge Summary Admission Date: 02/15/19 Discharge Date: 02/17/19 - History Present History: Alcohol Dependence Additional Comments: 58 years old male admitted on 02/15/19 for alcohol withdrawal sx management treated with librium detox regimen patient insists to leave the detox today dismissed the value of detox completion case discussed with the nurse against medical advice is appropriated patient is alert oriented x 3 speech clearly coherently ambulating steady gait - Physical Exam Results Vital Signs: Vital Signs Temperature 97.8 F 02/17/19 07:29 Pulse Rate 58 L 02/17/19 07:29 Respiratory Rate 18 02/17/19 07:29 Blood Pressure 108/73 02/17/19 07:29 O2 Sat by Pulse Oximetry (%) Pertinent Admission Physical Exam Findings: alcohol withdrawal Laboratory Last Values WBC 4.2 K/mm3 (4.0-10.0) 02/16/19 07:15 RBC 4.67 M/mm3 (4.00-5.60) 02/16/19 07:15 Hgb 13.9 GM/dL (11.7-16.9) 02/16/19 07:15 Hct 42.0 % (35.4-49) D 02/16/19 07:15 MCV 89.9 fl (80-96) 02/16/19 07:15 MCH 29.8 pg (25.7-33.7) 02/16/19 07:15 MCHC 33.2 g/dl (32.0-35.9) 02/16/19 07:15 RDW 14.5 % (11.9-15.9) 02/16/19 07:15 Plt Count 140 K/MM3 (134-434) 02/16/19 07:15 MPV 10.9 fl (7.5-11.1) 02/16/19 07:15 Sodium 139 mmol/L (136-145) 02/16/19 07:15 Potassium 4.5 mmol/L (3.5-5.1) 02/16/19 07:15 Chloride 104 mmol/L (98-107) 02/16/19 07:15 Carbon Dioxide 30 mmol/L (21-32) 02/16/19 07:15 Anion Gap 5 MMOL/L (8-16) L 02/16/19 07:15 BUN 12.0 mg/dL (7-18) 02/16/19 07:15 Creatinine 0.9 mg/dL (0.55-1.3) 02/16/19 07:15 Est GFR (CKD-EPI)AfAm 108.73 02/16/19 07:15 Est GFR (CKD-EPI)NonAf 93.82 02/16/19 07:15 Random Glucose 87 mg/dL (74-106) 02/16/19 07:15 Calcium 8.9 mg/dL (8.5-10.1) 02/16/19 07:15 Total Bilirubin 0.3 mg/dL (0.2-1) 02/16/19 07:15 AST 28 U/L (15-37) 02/16/19 07:15 ALT 31 U/L (13-61) 02/16/19 07:15 Alkaline Phosphatase 69 U/L (45-117) 02/16/19 07:15 Total Protein 7.0 g/dl (6.4-8.2) 02/16/19 07:15 Albumin 3.6 g/dl (3.4-5.0) 02/16/19 07:15 RPR Titer Nonreactive (NONREACTIVE) 02/16/19 07:15 lab noted - Treatment Hospital Course: Detox Protocol Followed Patient has Accepted a [facility]erral [facility] - Medication Discharge Medications: Ambulatory Orders Aspirin [ASA -] 81 mg PO DAILY 08/25/16 Cholecalciferol (Vitamin D3) [Vitamin D3] 1 tablet PO DAILY 08/13/18 Dextran 70/Hypromellose [Artificials Tears Drops] 1 drop OU Q4HWA PRN 08/13/18 Diphenhydramine [Benadryl Capsule -] 50 mg PO HS PRN 08/13/18 - Diagnosis (1) Alcohol dependence with withdrawal, uncomplicated Status: Acute (2) Nicotine dependence Status: Acute Qualifiers: Nicotine product type: cigarettes Substance use status: in withdrawal Qualified Code(s): F17.213 - Nicotine dependence, cigarettes, with withdrawal (3) Asthma Status: Chronic Qualifiers: Asthma severity: mild Asthma persistence: intermittent Asthma complication type: with status asthmaticus Qualified Code(s): J45.22 - Mild intermittent asthma with status asthmaticus (4) HTN (hypertension) Status: Chronic Qualifiers: Hypertension type: essential hypertension Qualified Code(s): I10 - Essential (primary) hypertension (5) Hypercholesterolemia Status: Chronic (6) History of positive PPD Status: Resolved (7) PPD positive Status: Resolved - AMA Did Patient Leave Against Medical Advice: Yes CIWA Score - CIWA Score Nausea/Vomitin-No Nausea/No Vomiting Muscle Tremors: 3 Anxiety: 2 Agitation: 1-Slight > Activity Paroxysmal Sweats: 1-Minimal Palms Moist Orientation: 0-Oriented (date of week) Tacttile Disturbances: 0-None Auditory Disturbances: 0-None Visual Disturbances: 1-Very Mild Sensitivity (to light) Headache: 0-None Present CIWA-Ar Total Score: 8
[2019-02-18] MEDS ORDERED: chlordiazePOXIDE HCL 10 MG CAPSULE PO PRN
[2019-02-18] MEDS ORDERED: chlordiazePOXIDE HCL 10 MG CAPSULE PO SCH (05:00)
[2019-02-19] MEDS ORDERED: chlordiazePOXIDE HCL 10 MG CAPSULE PO ONE (05:00)
== END 2019-02-17 09:20 | disposition left against medical advice (07) | DRG 770 ==
LOC: YASAS 10:14 → Y3N 11:58
PROVIDERS: ADMIT Allergy & Immunology; ATTEND Allergy & Immunology
PROC: HZ2ZZZZ Detoxification Services for Substance Abuse Treatment (ICD-10-PCS; principal; 2019-02-15)
DX: F10.230 Alcohol dependence with withdrawal, uncomplicated (principal); F12.20 Cannabis dependence, uncomplicated; F17.213 Nicotine dependence, cigarettes, with withdrawal; I10 Essential (primary) hypertension; J45.22 Mild intermittent asthma with status asthmaticus; E78.00 Pure hypercholesterolemia, unspecified; I25.2 Old myocardial infarction; Z21 Asymptomatic human immunodeficiency virus [HIV] infection status; H04.123 Dry eye syndrome of bilateral lacrimal glands; Z91.14 Patient's other noncompliance with medication regimen
CPT/HCPCS: 36415; 80053; 85027; 86593

== ENCOUNTER 2019-10-31 13:34 | Inpatient (IN) | payer OTHER ==
--- NOTE | 2019-10-31 13:51 | BHS.RME ---
Substance Use & Tx History - Substance Use History Alcohol Substance amount: 4-5 six packs of 16 ounce beer Frequency of use: Daily Substance route: Oral Date of Last Use: 10/31/19 Cocaine-Crack Substance amount: $100 Frequency of use: Once a month Substance route: Smoking Date of Last Use: 10/21/19 Marijuana/Hashish Substance amount: 1-2 joints Frequency of use: Daily Substance route: Smoking Date of Last Use: 10/29/19 Nicotine Substance amount: 7-10 cigs Frequency of use: Daily Substance route: Smoking Date of Last Use: 10/31/19 - Last Treatment Date of last treatment: February AMA after 2 days Treatment type: Substance Use Disorder ([place]) Where was last treatment: Detox Physical/Psych/Mental Status - Behavior General Behavior: Decreased activity Eye Contact: Normal - Cooperativeness Cooperativeness: Cooperative - Thinking Thought Processes: Tight Thought content: Future oriented - Physical Health Problems Is patient presently having any pain?: No Does patient presently have any injuries (include location): No Does patient currently have a fever: No CIWA Nausea/Vomitin-Mild Nausea/No Vomiting Muscle Tremors: 3 Anxiety: 3 Agitation: 2 Paroxysmal Sweats: 3 Orientation: 0-Oriented Tacttile Disturbances: 0-None Auditory Disturbances: 0-None Visual Disturbances: 1-Very Mild Sensitivity Headache: 0-None Present CIWA-Ar Total Score: 13
--- OUTSIDE RECORDS SUMMARY | 2019-10-31 14:43 | XMS ---
:1960 Author Organization [facility] Support Name Relationship Address Phone UE Unavailable Unavailable Unavailable SUPERIOR, I BROTHER [address] [facility] [place] [address] Re-disclosure Warning The records that you are about to access may contain information from federally- assisted alcohol or drug abuse programs. If such information is present, then the following federally mandated warning applies: This information has been disclosed to you from records protected by federal confidentiality rules (42 CFR part 2). The federal rules prohibit you from making any further disclosure of this information unless further disclosure is expressly permitted by the written consent of the person to whom it pertains or as otherwise permitted by 42 CFR part 2. A general authorization for the release of medical or other information is NOT sufficient for this purpose. The Federal rules restrict any use of the information to criminally investigate or prosecute any alcohol or drug abuse patient.The records that you are about to access may contain highly sensitive health information, the redisclosure of which is protected by Article 27-F of the [facility] Public Health law. If you continue you may haveaccess to information: Regarding HIV / AIDS; Provided by facilities licensed or operated by the [facility] Office of Mental Health; or Provided by the [facility] Office for People With Developmental Disabilities. If such information is present, then the following [facility] mandated warning applies: This information has been disclosed to you from confidential records which are protected by state law. State law prohibits you from making any further disclosure of this information without the specific written consent of the person to whom it pertains, or as otherwise permitted by law. Any unauthorized further disclosure in violation of state law may result in a fine or detention sentence or both. A general authorization for the release of medical or other information is NOT sufficient authorization for further disclosure. Insurance Providers Payer name Policy type Policy ID Covered Covered libertarian's Policy P reed / Coverage libertarian ID relationship to Good Inf ormation type good BEACON [id number] SP [id number] [employer] BEACON [id number] SP [id number] [employer] BEACON [id number] SP [id number] [employer]
--- NOTE | 2019-10-31 15:16 | HP ---
CIWA Score Nausea/Vomitin-Mild Nausea/No Vomiting Muscle Tremors: 3 Anxiety: 3 Agitation: 2 Paroxysmal Sweats: 3 Orientation: 0-Oriented Tacttile Disturbances: 0-None Auditory Disturbances: 0-None Visual Disturbances: 1-Very Mild Sensitivity Headache: 0-None Present CIWA-Ar Total Score: 13 - Admission Criteria OASAS Guidelines: Admission for Medically Managed Detox: Requires at least one of the followin. CIWA greater than 12 2. Seizures within the past 24 hours 3. Delirium tremens within the past 24 hours 4. Hallucinations within the past 24 hours 5. Acute intervention needed for co occurring medical disorder 6. Acute intervention needed for co occurring psychiatric disorder 7. Severe withdrawal that cannot be handled at a lower level of care (continued vomiting, continued diarrhea, abnormal vital signs) requiring intravenous medication and/or fluids 8. Admitting History and Physical - Smoking History Smoking history: Current every day smoker Have you smoked in the past 12 months: Yes Aproximately how many cigarettes per day: 10 - Alcohol/Substance Use Hx Alcohol Use: Yes Admission ROS [facility] Chief Complaint: alcohol detox Allergies/Adverse Reactions: Allergies Allergy/AdvReac Type Severity Reaction Status Date / Time No Known Allergies Allergy Verified 02/15/19 10:27 History of Present Illness: 58 yo with long h/o alcohol use disorder. Last here 02/2019. Pt with h/o CAD- h/o MD in 2017, and stent, takes ASA occ, HIV pos- CD4- 650, VL < undetectable, last took meds about a month ago. 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 h/o pos PPD- s/p INH X 6 mos alcohol- 6 pack of beer/day, 15/ vodka crack cocaine- occ. Smoke cannabis- occ Utox: [id number] - Ebola screening Have you traveled outside of the country in the last 21 days: No Have you had contact with anyone from an Ebola affected area: No Have you been sick,other than usual withdrawal symptoms: No Do you have a fever: No - Review of Systems Constitutional: No Symptoms Reported EENT: reports: No Symptoms Reported Respiratory: reports: No Symptoms reported Cardiac: reports: No Symptoms Reported GI: reports: No Symptoms Reported : reports: No Symptoms Reported Musculoskeletal: reports: No Symptoms Reported Integumentary: reports: No Symptoms Reported Neuro: reports: No Symptoms reported Endocrine: reports: No Symptoms Reported Hematology: reports: No Symptoms Reported Psychiatric: reports: No Sypmtoms Reported Patient History - Patient Medical History Hx Anemia: No Hx Asthma: Yes Hx Chronic Obstructive Pulmonary Disease (COPD): No Hx Cancer: No Hx Cardiac Disorders: Yes (hx MD May 2016) Hx Congestive Heart Failure: No Hx Hypertension: No Hx Hypercholesterolemia: Yes (no meds currently ) Hx Pacemaker: No HX Cerebrovascular Accident: No Hx Seizures: No Hx Dementia: No Hx Diabetes: No Hx Gastrointestinal Disorders: No Hx Liver Disease: No Hx Genitourinary Disorders: No Hx Sexually Transmitted Disorders: Yes (HIV) Hx Renal Disease (ESRD): No Hx Thyroid Disease: No Hx Human Immunodeficiency Virus (HIV): Yes Hx Hepatitis C: No Hx Depression: Yes Hx Suicide Attempt: No Hx Bipolar Disorder: No Hx Schizophrenia: No - Patient Surgical History Past Surgical History: No Hx Neurologic Surgery: No Hx Cataract Extraction: No Hx Cardiac Surgery: No Hx Lung Surgery: No Hx Breast Surgery: No Hx Breast Biopsy: No Hx Abdominal Surgery: No Hx Appendectomy: No Hx Cholecystectomy: No Hx Genitourinary Surgery: No Hx Section: No Hx Orthopedic Surgery: No Anesthesia Reaction: No - PPD History Documented Results: Positive w/o proof - Smoking Cessation Smoking history: Current every day smoker Have you smoked in the past 12 months: Yes Aproximately how many cigarettes per day: 10 Cigars Per Day: 0 Hx Chewing Tobacco Use: No Initiated information on smoking cessation: Yes 'Breaking Loose' booklet given: 10/31/19 Admission Physical Exam BHS - Physical General Appearance: Yes: Within Normal Limits HEENTM: Yes: Within Normal Limits, Hearing grossly Normal, Normal Voice, ARTI Respiratory: Yes: Within Normal Limits, Lungs Clear Neck: Yes: Within Normal Limits Cardiology: Yes: Within Normal Limits Abdominal: Yes: Within Normal Limits Back: Yes: Within Normal Limits Musculoskeletal: Yes: Within Normal Limits Extremities: Yes: Within Normal Limits Neurological: Yes: Within Normal Limits Integumentary: Yes: Within Normal Limits Lymphatic: Yes: Within Normal Limits - Diagnostic (1) Alcohol dependence with withdrawal, uncomplicated Current Visit: No Status: Acute (2) Cannabis dependence with withdrawal Current Visit: No Status: Acute (3) Dry eye syndrome Current Visit: No Status: Acute Qualifiers: Laterality: bilateral Qualified Code(s): H04.123 - Dry eye syndrome of bilateral lacrimal glands (4) Mood disorder Current Visit: No Status: Acute Breathalyzer - Breathalyzer Breathalyzer: 0.053 Urine Drug Screen - Test Device Lot number: [id number] Expiration date: 10/05/20 - Control Is test valid?: Yes - Results Drug screen NEGATIVE: No Urine drug screen results: THC-Marijuana Inpatient Rehab Admission - Rehab Decision to Admit Inpatient rehab admission?: No
[2019-10-31] MEDS ORDERED: chlordiazePOXIDE HCL 25 MG CAPSULE PO PRN (15:42)
[2019-10-31] MEDS ORDERED: IBUPROFEN 400 MG TABLET (FP) PO PRN (15:43)
[2019-10-31] MEDS ORDERED: ACETAMINOPHEN 325 MG TABLET (FP) PO PRN ×2 (15:43)
[2019-10-31] MEDS ORDERED: METHOCARBAMOL 500 MG TABLET PO PRN (15:43)
[2019-10-31] MEDS ORDERED: MENTHOL/PHENOL 1 EACH UD MM PRN (15:43)
[2019-10-31] MEDS ORDERED: MAGNESIUM HYDROX 2400MG/30ML ORAL SUSPENSION 30 ML CUP PO PRN (15:43)
[2019-10-31] MEDS ORDERED: ONDANSETRON *ODT* 4 MG TABLET SL PRN (15:43)
[2019-10-31] MEDS ORDERED: NICOTINE POLACRILEX 2 MG GUM BUC PRN (15:43)
[2019-10-31] MEDS ORDERED: MAGNESIUM CITRATE 300 ML BOTTLE PO PRN (15:43)
[2019-10-31] MEDS ORDERED: BISMUTH SUBSALICYLATE 524 MG/30 ML UD PO PRN (15:43)
--- OUTSIDE RECORDS SUMMARY | 2019-10-31 16:33 | XMS ---
:1960 [facility] Support Name Relationship Address Phone UE Unavailable Unavailable Unavailable SUPERIOR, I BROTHER [address] [facility] [place] [address] Re-disclosure Warning The records that you are [...] is protected by Article 27-F of the [facility] Public Health law. If you continue you may haveaccess to information: Regarding HIV / AIDS; Provided by facilities licensed or operated by the [facility] Office of Mental Health; or Provided by the [facility] Office for People With Developmental Disabilities. If such information is present, then the following [facility] mandated warning applies: This information has [...] law may result in a fine or fpc sentence or both. A general authorization for the release of medical or other information is NOT sufficient authorization for further disclosure. Insurance Providers Payer name Policy type Policy ID Covered Covered republican's Policy P reed / Coverage republican ID relationship to Good Inf ormation type good BEACON [id number] SP [id number] [employer] BE[employer]ON [id number] SP [id number] [employer] BE[employer]ON [id number] SP [id number] [employer] BEACON [id number] SP [id number] [employer]
[2019-10-31] MEDS: chlordiazePOXIDE HCL 25 MG CAPSULE PO SCH ×2 (17:55→22:41)
[2019-10-31] MEDS: hydrOXYzine PAMOATE 25 MG CAPSULE (FP) PO SCH ×2 (18:02→22:44)
[2019-10-31] MEDS: MELATONIN 5 MG TABLETS PO SCH (22:41)
[2019-10-31] MEDS: THIAMINE HCL 100 MG TABLET (FP) PO SCH (22:41)
[2019-11-01] MEDS: hydrOXYzine PAMOATE 25 MG CAPSULE (FP) PO SCH ×5 (05:09→22:20)
[2019-11-01] MEDS: chlordiazePOXIDE HCL 25 MG CAPSULE PO SCH ×4 (05:09→22:20)
[2019-11-01] MEDS: MAG HYDROX/AL HYDROX/SIMETH 30 ML UNIT-DOSE CUP PO PRN ×2 (09:46→17:38)
[2019-11-01] MEDS: ASPIRIN 81 MG CHEWABLE TABLETS PO SCH (10:24)
[2019-11-01] MEDS: ARTIFICIAL TEARS (POLYVINYL ALCOHOL) OPTH DROPS OU PRN (10:25)
[2019-11-01] MEDS: PRENATAL VITAMINS W/ FOLIC ACID TABLET (FP) PO SCH (10:25)
[2019-11-01 11:46] LABS: HEMATOCRIT 36.8 % (35.4-49); HEMOGLOBIN 12.3 GM/dL (11.7-16.9); MCH 29.5 pg (25.7-33.7); MCHC 33.5 g/dl (32.0-35.9); MEAN CELL VOLUME 87.9 fl (80-96); MEAN PLT VOLUME 10.7 fl (7.5-11.1); PLATELET COUNT 123 K/MM3 (134-434); RBC 4.18 M/mm3 (4.00-5.60); RDW 14.5 % (11.9-15.9); WHITE BLOOD COUNT 3.9 K/mm3 (4.0-10.0)
[2019-11-01 12:02] LABS: ALBUMIN 3.5 g/dl (3.4-5.0); BILIRUBIN,TOTAL 0.5 mg/dL (0.2-1); CALCIUM 8.8 mg/dL (8.5-10.1); CREATININE 0.8 mg/dL (0.55-1.3); POTASSIUM 4.4 mmol/L (3.5-5.1); TOT PROT 7.5 g/dl (6.4-8.2)
--- NOTE | 2019-11-01 14:43 | PN ---
S CIWA - CIWA Score Nausea/Vomitin Muscle Tremors: 2 Anxiety: 3 Agitation: 2 Paroxysmal Sweats: No Perspiration Orientation: 0-Oriented Tacttile Disturbances: 0-None Auditory Disturbances: 1-Very Mild Visual Disturbances: 0-None Headache: 0-None Present CIWA-Ar Total Score: 11 BHS Progress Note (SOAP) Subjective: Nausea, Anxious, Restless, Heartburn. Objective: Patient A & O X 3, Observed Ambulating on Detox Unit Unassisted. In No Acute Distress. 11/01/19 14:41 Laboratory Tests 10/31/19 11/01/19 11/01/19 16:30 07:50 07:50 WBC 3.9 L RBC 4.18 Hgb 12.3 Hct 36.8 MCV 87.9 MCH 29.5 MCHC 33.5 RDW 14.5 Plt Count 123 L MPV 10.7 Sodium Potassium Chloride Carbon Dioxide Anion Gap BUN Creatinine Est GFR (CKD-EPI)AfAm Est GFR (CKD-EPI)NonAf Random Glucose Calcium Total Bilirubin AST ALT Alkaline Phosphatase Total Protein Albumin Syphilis Serology Non-reactive COVID-19 (LAINEY) Not detected 11/01/19 07:50 WBC RBC Hgb Hct MCV MCH MCHC RDW Plt Count MPV Sodium 140 Potassium 4.4 Chloride 107 Carbon Dioxide 30 Anion Gap 3 L BUN 13.0 Creatinine 0.8 Est GFR (CKD-EPI)AfAm 114.13 Est GFR (CKD-EPI)NonAf 98.47 Random Glucose 99 Calcium 8.8 Total Bilirubin 0.5 AST 51 H ALT 54 Alkaline Phosphatase 71 Total Protein 7.5 Albumin 3.5 Syphilis Serology COVID-19 (LAINEY) Lab Results noted. Assessment: 11/01/19 14:41 WITHDRAWAL SYMPTOMS. THROMBOCYTOPENIA. ELEVATED AST LEVEL. Plan: Continue Detox. Increase Daily Oral Water Intake. PRN Mylanta oral for relief Heartburn PRN Zofran SL for relief of Nausea.
[2019-11-01] MEDS: THIAMINE HCL 100 MG TABLET (FP) PO SCH (22:20)
[2019-11-01] MEDS: MELATONIN 5 MG TABLETS PO SCH (22:20)
[2019-11-02] MEDS: chlordiazePOXIDE HCL 25 MG CAPSULE PO SCH ×4 (05:41→22:06)
[2019-11-02] MEDS: hydrOXYzine PAMOATE 25 MG CAPSULE (FP) PO SCH ×5 (05:41→22:06)
[2019-11-02] MEDS: PRENATAL VITAMINS W/ FOLIC ACID TABLET (FP) PO SCH (10:15)
[2019-11-02] MEDS: ARTIFICIAL TEARS (POLYVINYL ALCOHOL) OPTH DROPS OU PRN (10:15)
[2019-11-02] MEDS: ASPIRIN 81 MG CHEWABLE TABLETS PO SCH (10:15)
--- NOTE | 2019-11-02 10:28 | PN ---
[facility] CIWA - CIWA Score Nausea/Vomitin-Mild Nausea/No Vomiting Muscle Tremors: 2 Anxiety: 3 Agitation: 1-Slight > Activity Paroxysmal Sweats: 2 Orientation: 0-Oriented Tacttile Disturbances: 0-None Auditory Disturbances: 0-None Visual Disturbances: 0-None Headache: 0-None Present CIWA-Ar Total Score: 9 S Progress Note (SOAP) Subjective: Complaints of anxiety, tremors, and sweats Objective: 11/02/19 10:27 Vital Signs 11/02/19 11/02/19 05:06 08:31 Temperature 98 F 97.5 F L Pulse Rate 69 65 Respiratory 16 16 Rate Blood Pressure 121/79 122/84 O2 Sat by Pulse 96 96 Oximetry (%) Laboratory Last Values WBC 3.9 K/mm3 (4.0-10.0) L 11/01/19 07:50 RBC 4.18 M/mm3 (4.00-5.60) 11/01/19 07:50 Hgb 12.3 GM/dL (11.7-16.9) 11/01/19 07:50 Hct 36.8 % (35.4-49) 11/01/19 07:50 MCV 87.9 fl (80-96) 11/01/19 07:50 MCH 29.5 pg (25.7-33.7) 11/01/19 07:50 MCHC 33.5 g/dl (32.0-35.9) 11/01/19 07:50 RDW 14.5 % (11.9-15.9) 11/01/19 07:50 Plt Count 123 K/MM3 (134-434) L 11/01/19 07:50 MPV 10.7 fl (7.5-11.1) 11/01/19 07:50 Sodium 140 mmol/L (136-145) 11/01/19 07:50 Potassium 4.4 mmol/L (3.5-5.1) 11/01/19 07:50 Chloride 107 mmol/L (98-107) 11/01/19 07:50 Carbon Dioxide 30 mmol/L (21-32) 11/01/19 07:50 Anion Gap 3 MMOL/L (8-16) L 11/01/19 07:50 BUN 13.0 mg/dL (7-18) 11/01/19 07:50 Creatinine 0.8 mg/dL (0.55-1.3) 11/01/19 07:50 Est GFR (CKD-EPI)AfAm 114.13 11/01/19 07:50 Est GFR (CKD-EPI)NonAf 98.47 11/01/19 07:50 Random Glucose 99 mg/dL (74-106) 11/01/19 07:50 Calcium 8.8 mg/dL (8.5-10.1) 11/01/19 07:50 Total Bilirubin 0.5 mg/dL (0.2-1) 11/01/19 07:50 AST 51 U/L (15-37) H 11/01/19 07:50 ALT 54 U/L (13-61) 11/01/19 07:50 Alkaline Phosphatase 71 U/L (45-117) 11/01/19 07:50 Total Protein 7.5 g/dl (6.4-8.2) 11/01/19 07:50 Albumin 3.5 g/dl (3.4-5.0) 11/01/19 07:50 Syphilis Serology Non-reactive (NONREACTIVE) 11/01/19 07:50 COVID-19 (LAINEY) Not detected (Not Detected) 10/31/19 16:30 Labs noted. Assessment: 11/02/19 10:27 Alert and oriented x3, in no acute respiratory distress. Full ROM, ambulatory in the unit without assistance. Skin warm to touch. Withdrawal symptoms. Plan: Continue detox protocol.
[2019-11-02] MEDS: THIAMINE HCL 100 MG TABLET (FP) PO SCH (22:06)
[2019-11-02] MEDS: MELATONIN 5 MG TABLETS PO SCH (22:06)
[2019-11-03] MEDS ORDERED: chlordiazePOXIDE HCL 10 MG CAPSULE PO PRN
[2019-11-03] MEDS: chlordiazePOXIDE HCL 10 MG CAPSULE PO SCH ×3 (05:07→17:36)
[2019-11-03] MEDS: hydrOXYzine PAMOATE 25 MG CAPSULE (FP) PO SCH ×2 (05:07→11:20)
--- NOTE | 2019-11-03 07:58 | PN ---
S CIWA - CIWA Score Nausea/Vomitin-Mild Nausea/No Vomiting Muscle Tremors: 2 Anxiety: 2 Agitation: 2 Paroxysmal Sweats: No Perspiration Orientation: 0-Oriented Tacttile Disturbances: 1-Very Mild Itch/Numbness Auditory Disturbances: 0-None Visual Disturbances: 0-None Headache: 2-Mild CIWA-Ar Total Score: 10 S Progress Note (SOAP) Subjective: alert,irritable,anxious,interrupted sleep,aching pain,ambulation on the unit Objective: 11/03/19 10:36 Vital Signs Temperature 99.3 F 11/03/19 05:01 Pulse Rate 71 11/03/19 05:01 Respiratory Rate 18 11/03/19 05:01 Blood Pressure 121/76 11/03/19 05:01 O2 Sat by Pulse Oximetry (%) 93 L 11/03/19 05:01 11/03/19 10:37 Laboratory Last Values WBC 3.9 K/mm3 (4.0-10.0) L 11/01/19 07:50 RBC 4.18 M/mm3 (4.00-5.60) 11/01/19 07:50 Hgb 12.3 GM/dL (11.7-16.9) 11/01/19 07:50 Hct 36.8 % (35.4-49) 11/01/19 07:50 MCV 87.9 fl (80-96) 11/01/19 07:50 MCH 29.5 pg (25.7-33.7) 11/01/19 07:50 MCHC 33.5 g/dl (32.0-35.9) 11/01/19 07:50 RDW 14.5 % (11.9-15.9) 11/01/19 07:50 Plt Count 123 K/MM3 (134-434) L 11/01/19 07:50 MPV 10.7 fl (7.5-11.1) 11/01/19 07:50 Sodium 140 mmol/L (136-145) 11/01/19 07:50 Potassium 4.4 mmol/L (3.5-5.1) 11/01/19 07:50 Chloride 107 mmol/L (98-107) 11/01/19 07:50 Carbon Dioxide 30 mmol/L (21-32) 11/01/19 07:50 Anion Gap 3 MMOL/L (8-16) L 11/01/19 07:50 BUN 13.0 mg/dL (7-18) 11/01/19 07:50 Creatinine 0.8 mg/dL (0.55-1.3) 11/01/19 07:50 Est GFR (CKD-EPI)AfAm 114.13 11/01/19 07:50 Est GFR (CKD-EPI)NonAf 98.47 11/01/19 07:50 Random Glucose 99 mg/dL (74-106) 11/01/19 07:50 Calcium 8.8 mg/dL (8.5-10.1) 11/01/19 07:50 Total Bilirubin 0.5 mg/dL (0.2-1) 11/01/19 07:50 AST 51 U/L (15-37) H 11/01/19 07:50 ALT 54 U/L (13-61) 11/01/19 07:50 Alkaline Phosphatase 71 U/L (45-117) 11/01/19 07:50 Total Protein 7.5 g/dl (6.4-8.2) 11/01/19 07:50 Albumin 3.5 g/dl (3.4-5.0) 11/01/19 07:50 Syphilis Serology Non-reactive (NONREACTIVE) 11/01/19 07:50 COVID-19 (LAINEY) Not detected (Not Detected) 10/31/19 16:30 Assessment: 11/03/19 10:37 withdrawal symptom Plan: continue detox librium regimen
[2019-11-03] MEDS ORDERED: hydrOXYzine PAMOATE 25 MG CAPSULE (FP) PO PRN (10:09)
[2019-11-03] MEDS: ASPIRIN 81 MG CHEWABLE TABLETS PO SCH (10:15)
[2019-11-03] MEDS: ARTIFICIAL TEARS (POLYVINYL ALCOHOL) OPTH DROPS OU PRN (10:16)
[2019-11-03] MEDS: PRENATAL VITAMINS W/ FOLIC ACID TABLET (FP) PO SCH (10:16)
[2019-11-03 17:33] VITALS: BP 129/89; PULSE 68; TEMP 98.2
--- NOTE | 2019-11-03 18:37 | DS ---
[facility] Detox Discharge Summary Admission Date: 10/31/19 Discharge Date: 11/03/19 - History Present History: Alcohol Dependence, Cannabis Dependence, Cocaine Dependence Pertinent Past History: Hx: CAD; AK; Cardiac stent; HIV+; PPD+; Crack/cocaine and cannabis use disorder. - Physical Exam Results Vital Signs: Vital Signs Temperature 98.2 F 11/03/19 16:35 Pulse Rate 68 11/03/19 16:35 Respiratory Rate 18 11/03/19 16:35 Blood Pressure 129/89 11/03/19 16:35 O2 Sat by Pulse Oximetry (%) 95 11/03/19 16:35 Pertinent Admission Physical Exam Findings: Tolerated detox protocol but did not complete. Laboratory Last Values WBC 3.9 K/mm3 (4.0-10.0) L 11/01/19 07:50 RBC 4.18 M/mm3 (4.00-5.60) 11/01/19 07:50 Hgb 12.3 GM/dL (11.7-16.9) 11/01/19 07:50 Hct 36.8 % (35.4-49) 11/01/19 07:50 MCV 87.9 fl (80-96) 11/01/19 07:50 MCH 29.5 pg (25.7-33.7) 11/01/19 07:50 MCHC 33.5 g/dl (32.0-35.9) 11/01/19 07:50 RDW 14.5 % (11.9-15.9) 11/01/19 07:50 Plt Count 123 K/MM3 (134-434) L 11/01/19 07:50 MPV 10.7 fl (7.5-11.1) 11/01/19 07:50 Sodium 140 mmol/L (136-145) 11/01/19 07:50 Potassium 4.4 mmol/L (3.5-5.1) 11/01/19 07:50 Chloride 107 mmol/L (98-107) 11/01/19 07:50 Carbon Dioxide 30 mmol/L (21-32) 11/01/19 07:50 Anion Gap 3 MMOL/L (8-16) L 11/01/19 07:50 BUN 13.0 mg/dL (7-18) 11/01/19 07:50 Creatinine 0.8 mg/dL (0.55-1.3) 11/01/19 07:50 Est GFR (CKD-EPI)AfAm 114.13 11/01/19 07:50 Est GFR (CKD-EPI)NonAf 98.47 11/01/19 07:50 Random Glucose 99 mg/dL (74-106) 11/01/19 07:50 Calcium 8.8 mg/dL (8.5-10.1) 11/01/19 07:50 Total Bilirubin 0.5 mg/dL (0.2-1) 11/01/19 07:50 AST 51 U/L (15-37) H 11/01/19 07:50 ALT 54 U/L (13-61) 11/01/19 07:50 Alkaline Phosphatase 71 U/L (45-117) 11/01/19 07:50 Total Protein 7.5 g/dl (6.4-8.2) 11/01/19 07:50 Albumin 3.5 g/dl (3.4-5.0) 11/01/19 07:50 Syphilis Serology Non-reactive (NONREACTIVE) 11/01/19 07:50 COVID-19 (LAINEY) Not detected (Not Detected) 10/31/19 16:30 Alert and oriented. Lungs CTA. Gait steady. Adamant on leaving despite encouragement to stay. - Treatment Hospital Course: Detox Protocol Followed (Did not complete detox. Declined NRT prescriptions.), Discharged Condition Good - Medication Discharge Medications: Ambulatory Orders Aspirin [ASA -] 81 mg PO DAILY 08/25/16 Cholecalciferol (Vitamin D3) [Vitamin D3] 1 tablet PO DAILY 08/13/18 Dextran 70/Hypromellose [Artificials Tears Drops] 1 drop OU Q4HWA PRN 08/13/18 Diphenhydramine [Benadryl Capsule -] 50 mg PO HS PRN 08/13/18 - Diagnosis (1) Alcohol dependence with withdrawal, uncomplicated Current Visit: No Status: Acute (2) Nicotine dependence Current Visit: No Status: Acute Qualifiers: Nicotine product type: cigarettes Substance use status: in withdrawal Qualified Code(s): F17.213 - Nicotine dependence, cigarettes, with withdrawal (3) Cocaine dependence Current Visit: No Status: Chronic Qualifiers: Substance use status: uncomplicated Qualified Code(s): F14.20 - Cocaine dependence, uncomplicated (4) Cocaine dependence, uncomplicated Current Visit: Yes Status: Chronic (5) HTN (hypertension) Current Visit: Yes Status: Chronic Qualifiers: Hypertension type: essential hypertension Qualified Code(s): I10 - Essential (primary) hypertension (6) History of AK (myocardial infarction) Current Visit: Yes Status: Chronic (7) History of heart artery stent Current Visit: Yes Status: Chronic (8) Human immunodeficiency virus infection Current Visit: Yes Status: Chronic (9) History of positive PPD Current Visit: Yes Status: Chronic - AMA Did Patient Leave Against Medical Advice: Yes
--- NOTE | 2019-11-03 18:37 | PN ---
[facility] Progress Note Note: Patient yelling and c/o problems w/ using phone and being upset with the way the hospital runs and its rules. Attempted to de-escalate the patients anger and was able to get patient to calm down. Patient still insists on leaving. Patient has left early the last 5 admissions. Encouraged to consider external support groups or another facility. Alert and oriented. Lungs CTA. Gait steady. Discussed substance use and possible loss of tolerance and risks of overdosing. Verbalizes and understanding and sates "I'll be fine". Vital Signs - 24 hr 11/02/19 11/03/19 11/03/19 20:40 05:01 08:37 Temperature 97.1 F L 99.3 F 96.9 F L Pulse Rate 65 71 62 Respiratory 18 18 18 Rate Blood Pressure 127/85 121/76 116/84 O2 Sat by Pulse 96 93 L 98 Oximetry (%) 11/03/19 11/03/19 13:00 16:35 Temperature 97.3 F L 98.2 F Pulse Rate 82 68 Respiratory 18 18 Rate Blood Pressure 114/65 129/89 O2 Sat by Pulse 97 95 Oximetry (%) Laboratory Last Values WBC 3.9 K/mm3 (4.0-10.0) L 11/01/19 07:50 RBC 4.18 M/mm3 (4.00-5.60) 11/01/19 07:50 Hgb 12.3 GM/dL (11.7-16.9) 11/01/19 07:50 Hct 36.8 % (35.4-49) 11/01/19 07:50 MCV 87.9 fl (80-96) 11/01/19 07:50 MCH 29.5 pg (25.7-33.7) 11/01/19 07:50 MCHC 33.5 g/dl (32.0-35.9) 11/01/19 07:50 RDW 14.5 % (11.9-15.9) 11/01/19 07:50 Plt Count 123 K/MM3 (134-434) L 11/01/19 07:50 MPV 10.7 fl (7.5-11.1) 11/01/19 07:50 Sodium 140 mmol/L (136-145) 11/01/19 07:50 Potassium 4.4 mmol/L (3.5-5.1) 11/01/19 07:50 Chloride 107 mmol/L (98-107) 11/01/19 07:50 Carbon Dioxide 30 mmol/L (21-32) 11/01/19 07:50 Anion Gap 3 MMOL/L (8-16) L 11/01/19 07:50 BUN 13.0 mg/dL (7-18) 11/01/19 07:50 Creatinine 0.8 mg/dL (0.55-1.3) 11/01/19 07:50 Est GFR (CKD-EPI)AfAm 114.13 11/01/19 07:50 Est GFR (CKD-EPI)NonAf 98.47 11/01/19 07:50 Random Glucose 99 mg/dL (74-106) 11/01/19 07:50 Calcium 8.8 mg/dL (8.5-10.1) 11/01/19 07:50 Total Bilirubin 0.5 mg/dL (0.2-1) 11/01/19 07:50 AST 51 U/L (15-37) H 11/01/19 07:50 ALT 54 U/L (13-61) 11/01/19 07:50 Alkaline Phosphatase 71 U/L (45-117) 11/01/19 07:50 Total Protein 7.5 g/dl (6.4-8.2) 11/01/19 07:50 Albumin 3.5 g/dl (3.4-5.0) 11/01/19 07:50 Syphilis Serology Non-reactive (NONREACTIVE) 11/01/19 07:50 COVID-19 ([facility]) Not detected (Not Detected) 10/31/19 16:30 Left unit in no apparent distress.
[2019-11-04] MEDS ORDERED: chlordiazePOXIDE HCL 10 MG CAPSULE PO SCH (05:00)
[2019-11-05] MEDS ORDERED: chlordiazePOXIDE HCL 10 MG CAPSULE PO ONE (05:00)
== END 2019-11-03 18:13 | disposition left against medical advice (07) | DRG 770 ==
LOC: YASAS 13:34 → Y6N 16:25
PROVIDERS: ADMIT Allergy & Immunology; ATTEND Allergy & Immunology
PROC: HZ2ZZZZ Detoxification Services for Substance Abuse Treatment (ICD-10-PCS; principal; 2019-10-31)
DX: F10.230 Alcohol dependence with withdrawal, uncomplicated (principal); F14.20 Cocaine dependence, uncomplicated; F12.20 Cannabis dependence, uncomplicated; F17.213 Nicotine dependence, cigarettes, with withdrawal; F39 Unspecified mood [affective] disorder; F32.9 Major depressive disorder, single episode, unspecified; Z21 Asymptomatic human immunodeficiency virus [HIV] infection status; D69.6 Thrombocytopenia, unspecified; E78.00 Pure hypercholesterolemia, unspecified; H04.123 Dry eye syndrome of bilateral lacrimal glands; I25.10 Atherosclerotic heart disease of native coronary artery without angina pectoris; I10 Essential (primary) hypertension; Z95.5 Presence of coronary angioplasty implant and graft; I25.2 Old myocardial infarction; R74.0 Nonspecific elevation of levels of transaminase and lactic acid dehydrogenase [LDH]; R76.11 Nonspecific reaction to tuberculin skin test without active tuberculosis
CPT/HCPCS: 36415; 80053; 85027; 86780; U0003

== ENCOUNTER 2020-07-18 11:06 | Inpatient (IN) | payer OTHER ==
[2020-07-18 12:45] VITALS: BMI 31.0
[2020-07-18] MEDS ORDERED: METHOCARBAMOL 500 MG TABLET PO PRN (15:07)
[2020-07-18] MEDS ORDERED: MAG HYDROX/AL HYDROX/SIMETH 30 ML UNIT-DOSE CUP PO PRN (15:07)
[2020-07-18] MEDS ORDERED: MAGNESIUM HYDROX 2400MG/30ML ORAL SUSPENSION 30 ML CUP PO PRN (15:07)
[2020-07-18] MEDS ORDERED: IBUPROFEN 400 MG TABLET (FP) PO PRN (15:07)
[2020-07-18] MEDS ORDERED: LORazepam 1 MG TABLET PO PRN (15:07)
[2020-07-18] MEDS ORDERED: ACETAMINOPHEN 325 MG TABLET (FP) PO PRN ×2 (15:07)
[2020-07-18] MEDS ORDERED: ONDANSETRON *ODT* 4 MG TABLET SL PRN (15:07)
[2020-07-18] MEDS ORDERED: MENTHOL/PHENOL 1 EACH UD MM PRN (15:07)
[2020-07-18] MEDS ORDERED: NICOTINE POLACRILEX 2 MG GUM BUC PRN (15:07)
[2020-07-18] MEDS ORDERED: MAGNESIUM CITRATE 300 ML BOTTLE PO PRN (15:07)
[2020-07-18] MEDS ORDERED: BISMUTH SUBSALICYLATE 524 MG/30 ML PO PRN (15:07)
[2020-07-18] MEDS ORDERED: ALBUTEROL SO4 HFA INHALER IH PRN (15:10)
[2020-07-18] MEDS: LORazepam 2 MG TABLET PO SCH ×2 (18:02→22:42)
[2020-07-18] MEDS: hydrOXYzine PAMOATE 25 MG CAPSULE (FP) PO SCH ×2 (18:02→22:44)
[2020-07-18] MEDS: MELATONIN 5 MG TABLETS PO SCH (22:42)
[2020-07-18] MEDS: THIAMINE HCL 100 MG TABLET (FP) PO SCH (22:42)
[2020-07-19] MEDS: LORazepam 2 MG TABLET PO SCH ×4 (06:29→22:13)
[2020-07-19] MEDS: hydrOXYzine PAMOATE 25 MG CAPSULE (FP) PO SCH ×5 (06:29→22:15)
[2020-07-19 10:24] LABS: HEMATOCRIT 37.7 % (35.4-49); HEMOGLOBIN 12.5 GM/dL (11.7-16.9); MCH 29.9 pg (25.7-33.7); MCHC 33.3 g/dl (32.0-35.9); MEAN CELL VOLUME 89.8 fl (80-96); MEAN PLT VOLUME 10.6 fl (7.5-11.1); PLATELET COUNT 164 K/MM3 (134-434); RBC 4.19 M/mm3 (4.00-5.60); RDW 15.4 % (11.9-15.9); WHITE BLOOD COUNT 4.3 K/mm3 (4.0-10.0)
[2020-07-19 10:28] LABS: ALBUMIN 3.6 g/dl (3.4-5.0); CALCIUM 9.1 mg/dL (8.5-10.1)
[2020-07-19 10:29] LABS: BLOOD UREA NITROGEN 11.5 mg/dL (7-18)
[2020-07-19 10:32] LABS: CREATININE 0.8 mg/dL (0.55-1.3)
[2020-07-19] MEDS: ASPIRIN 81 MG CHEWABLE TABLETS PO SCH (10:32)
[2020-07-19] MEDS: NICOTINE 7 MG/24 HOURS TOPICAL PATCH TD SCH (10:32)
[2020-07-19] MEDS: PRENATAL VITAMINS W/ FOLIC ACID TABLET (FP) PO SCH (10:32)
[2020-07-19 10:33] LABS: BILIRUBIN,TOTAL 0.4 mg/dL (0.2-1); TOT PROT 7.4 g/dl (6.4-8.2)
[2020-07-19] MEDS: CLOPIDOGREL BISULFATE 75 MG TABLET (FP) PO SCH (13:56)
[2020-07-19] MEDS: ELVITEG/COB/EMTRI/TENOF (GENVOYA) TABLET (NF) PO SCH (15:13)
[2020-07-19] MEDS: THIAMINE HCL 100 MG TABLET (FP) PO SCH (22:13)
[2020-07-19] MEDS: ATORVASTATIN CA 80 MG TABLET (FP) PO SCH (22:13)
[2020-07-19] MEDS: MELATONIN 5 MG TABLETS PO SCH (22:14)
[2020-07-20] MEDS: hydrOXYzine PAMOATE 25 MG CAPSULE (FP) PO SCH ×5 (05:57→22:46)
[2020-07-20] MEDS: LORazepam 1 MG TABLET PO SCH ×4 (05:57→22:47)
[2020-07-20] MEDS: ELVITEG/COB/EMTRI/TENOF (GENVOYA) TABLET (NF) PO SCH (08:21)
[2020-07-20] MEDS: CLOPIDOGREL BISULFATE 75 MG TABLET (FP) PO SCH (10:32)
[2020-07-20] MEDS: ASPIRIN 81 MG CHEWABLE TABLETS PO SCH (10:32)
[2020-07-20] MEDS: PRENATAL VITAMINS W/ FOLIC ACID TABLET (FP) PO SCH (10:32)
[2020-07-20] MEDS: NICOTINE 7 MG/24 HOURS TOPICAL PATCH TD SCH (10:33)
[2020-07-20] MEDS: MELATONIN 5 MG TABLETS PO SCH (22:47)
[2020-07-20] MEDS: THIAMINE HCL 100 MG TABLET (FP) PO SCH (22:47)
[2020-07-20] MEDS: ATORVASTATIN CA 80 MG TABLET (FP) PO SCH (22:47)
[2020-07-21] MEDS ORDERED: LORazepam 0.5 MG TABLET PO PRN
[2020-07-21] MEDS ORDERED: LORazepam 0.5 MG TABLET PO SCH (05:00)
[2020-07-21] MEDS: hydrOXYzine PAMOATE 25 MG CAPSULE (FP) PO SCH ×2 (05:31→09:57)
[2020-07-21] MEDS: ELVITEG/COB/EMTRI/TENOF (GENVOYA) TABLET (NF) PO SCH (07:19)
[2020-07-21 09:20] VITALS: BP 130/91; PULSE 74; TEMP 98
[2020-07-21] MEDS: ASPIRIN 81 MG CHEWABLE TABLETS PO SCH (09:55)
[2020-07-21] MEDS: PRENATAL VITAMINS W/ FOLIC ACID TABLET (FP) PO SCH (09:55)
[2020-07-21] MEDS: CLOPIDOGREL BISULFATE 75 MG TABLET (FP) PO SCH (09:55)
[2020-07-21] MEDS: NICOTINE 7 MG/24 HOURS TOPICAL PATCH TD SCH (09:57)
[2020-07-22] MEDS ORDERED: LORazepam 0.5 MG TABLET PO ONE (05:00)
== END 2020-07-21 10:28 | disposition home or self-care (01) | DRG 774 ==
LOC: YASAS 11:06 → Y6N 15:07
PROVIDERS: ADMIT Allergy & Immunology; ATTEND Allergy & Immunology
PROC: HZ2ZZZZ Detoxification Services for Substance Abuse Treatment (ICD-10-PCS; principal; 2020-07-18)
DX: F10.230 Alcohol dependence with withdrawal, uncomplicated (principal); F14.20 Cocaine dependence, uncomplicated; F12.20 Cannabis dependence, uncomplicated; F17.210 Nicotine dependence, cigarettes, uncomplicated; Z21 Asymptomatic human immunodeficiency virus [HIV] infection status; I25.10 Atherosclerotic heart disease of native coronary artery without angina pectoris; I10 Essential (primary) hypertension; Z95.5 Presence of coronary angioplasty implant and graft; J45.20 Mild intermittent asthma, uncomplicated; E78.00 Pure hypercholesterolemia, unspecified; H04.123 Dry eye syndrome of bilateral lacrimal glands; R76.11 Nonspecific reaction to tuberculin skin test without active tuberculosis
CPT/HCPCS: 36415; 71046-TC-FY; 80053; 85027; 86780; C9803; U0003; U0005

== ENCOUNTER 2021-01-22 09:34 | Inpatient (IN) | payer OTHER ==
[2021-01-22 09:59] VITALS: BMI 31.3
[2021-01-22] MEDS ORDERED: NICOTINE 10 MG CARTRIDGE (INHALER) IH PRN (11:00)
[2021-01-22] MEDS ORDERED: BISMUTH SUBSALICYLATE 524 MG/30 ML PO PRN (11:00)
[2021-01-22] MEDS ORDERED: ONDANSETRON *ODT* 4 MG TABLET SL PRN (11:00)
[2021-01-22] MEDS ORDERED: chlordiazePOXIDE HCL 25 MG CAPSULE PO PRN (11:00)
[2021-01-22] MEDS ORDERED: chlordiazePOXIDE HCL 25 MG CAPSULE PO ONE (11:00)
[2021-01-22] MEDS ORDERED: MAGNESIUM CITRATE 300 ML BOTTLE PO PRN (11:00)
[2021-01-22] MEDS ORDERED: MENTHOL/PHENOL 1 EACH UD MM PRN (11:00)
[2021-01-22] MEDS ORDERED: MAG HYDROX/AL HYDROX/SIMETH 30 ML UNIT-DOSE CUP PO PRN (11:00)
[2021-01-22] MEDS ORDERED: MAGNESIUM HYDROX 2400MG/30ML ORAL SUSPENSION 30 ML CUP PO PRN (11:00)
[2021-01-22] MEDS ORDERED: ACETAMINOPHEN 325 MG TABLET (FP) PO PRN ×2 (11:00)
[2021-01-22] MEDS ORDERED: METHOCARBAMOL 500 MG TABLET PO PRN (11:00)
[2021-01-22] MEDS ORDERED: ALBUTEROL SO4 HFA INHALER IH PRN (11:02)
[2021-01-22] MEDS ORDERED: ARTIFICIAL TEARS (POLYVINYL ALCOHOL) OPTH DROPS OU PRN (11:04)
[2021-01-22] MEDS: PRENATAL VITAMINS W/ FOLIC ACID TABLET (FP) PO SCH (12:07)
[2021-01-22] MEDS: NICOTINE 7 MG/24 HOURS TOPICAL PATCH TD SCH (12:07)
[2021-01-22] MEDS: VITAMINS A AND D TOPICAL OINTMENT 60 GM TUBE TP SCH ×2 (14:51→18:45)
[2021-01-22] MEDS: chlordiazePOXIDE HCL 25 MG CAPSULE PO SCH ×2 (17:49→22:14)
[2021-01-22] MEDS: THIAMINE HCL 100 MG TABLET (FP) PO SCH (22:13)
[2021-01-22] MEDS: ATORVASTATIN CA 80 MG TABLET (FP) PO SCH (22:14)
[2021-01-22] MEDS: MELATONIN 5 MG TABLETS PO SCH (22:15)
[2021-01-22] MEDS: diphenhydrAMINE HCL 25 MG CAPSULE (FP) PO PRN (22:15)
[2021-01-23] MEDS: VITAMINS A AND D TOPICAL OINTMENT 60 GM TUBE TP SCH ×4 (00:16→22:17)
[2021-01-23] MEDS: chlordiazePOXIDE HCL 25 MG CAPSULE PO SCH ×4 (07:35→22:16)
[2021-01-23] MEDS: BICTEGRAV/EMTRICIT/TENOFOV (BIKTARVY) 50-200-25 MG TABLET PO SCH (10:25)
[2021-01-23] MEDS: CLOPIDOGREL BISULFATE 75 MG TABLET (FP) PO SCH (10:25)
[2021-01-23] MEDS: PRENATAL VITAMINS W/ FOLIC ACID TABLET (FP) PO SCH (10:25)
[2021-01-23] MEDS: ASPIRIN COATED 81 MG TABLET.EC PO SCH (10:26)
[2021-01-23] MEDS: NICOTINE 7 MG/24 HOURS TOPICAL PATCH TD SCH (10:26)
[2021-01-23 10:28] LABS: HEMATOCRIT 35.6 % (35.4-49); HEMOGLOBIN 12.3 GM/dL (11.7-16.9); MCH 30.9 pg (25.7-33.7); MCHC 34.6 g/dl (32.0-35.9); MEAN CELL VOLUME 89.3 fl (80-96); PLATELET COUNT 170 10^3/uL (134-434); RBC 3.99 M/mm3 (4.00-5.60); RDW 14.8 % (11.9-15.9); WHITE BLOOD COUNT 4.3 K/mm3 (4.0-10.0)
[2021-01-23 10:30] LABS: CALCIUM 8.9 mg/dL (8.5-10.1)
[2021-01-23 10:33] LABS: CREATININE 0.8 mg/dL (0.55-1.3)
[2021-01-23 10:34] LABS: ALBUMIN 3.4 g/dl (3.4-5.0)
[2021-01-23 10:35] LABS: BILIRUBIN,TOTAL 0.3 mg/dL (0.2-1); TOT PROT 7.1 g/dl (6.4-8.2)
[2021-01-23] MEDS: LOSARTAN POTASSIUM 25 MG TABLET PO SCH (14:35)
[2021-01-23] MEDS: metoPROLOL SUCCINATE 25 MG TAB.SR.24H (FP) PO SCH (14:35)
[2021-01-23] MEDS: ATORVASTATIN CA 80 MG TABLET (FP) PO SCH (22:17)
[2021-01-23] MEDS: THIAMINE HCL 100 MG TABLET (FP) PO SCH (22:18)
[2021-01-23] MEDS: diphenhydrAMINE HCL 25 MG CAPSULE (FP) PO PRN (22:22)
[2021-01-23] MEDS: MELATONIN 5 MG TABLETS PO SCH (22:24)
[2021-01-24] MEDS: VITAMINS A AND D TOPICAL OINTMENT 60 GM TUBE TP SCH ×5 (01:52→23:55)
[2021-01-24] MEDS: chlordiazePOXIDE HCL 25 MG CAPSULE PO SCH ×4 (05:56→22:38)
[2021-01-24] MEDS: NICOTINE 7 MG/24 HOURS TOPICAL PATCH TD SCH (10:19)
[2021-01-24] MEDS: CLOPIDOGREL BISULFATE 75 MG TABLET (FP) PO SCH (10:22)
[2021-01-24] MEDS: ASPIRIN COATED 81 MG TABLET.EC PO SCH (10:22)
[2021-01-24] MEDS: BICTEGRAV/EMTRICIT/TENOFOV (BIKTARVY) 50-200-25 MG TABLET PO SCH (11:30)
[2021-01-24] MEDS: metoPROLOL SUCCINATE 25 MG TAB.SR.24H (FP) PO SCH (11:30)
[2021-01-24] MEDS: PRENATAL VITAMINS W/ FOLIC ACID TABLET (FP) PO SCH (11:31)
[2021-01-24] MEDS: LOSARTAN POTASSIUM 25 MG TABLET PO SCH (11:31)
[2021-01-24] MEDS: THIAMINE HCL 100 MG TABLET (FP) PO SCH (22:38)
[2021-01-24] MEDS: ATORVASTATIN CA 80 MG TABLET (FP) PO SCH (22:38)
[2021-01-24] MEDS: MELATONIN 5 MG TABLETS PO SCH (22:38)
[2021-01-25] MEDS ORDERED: chlordiazePOXIDE HCL 10 MG CAPSULE PO PRN
[2021-01-25] MEDS ORDERED: chlordiazePOXIDE HCL 10 MG CAPSULE PO SCH (05:00)
[2021-01-25] MEDS: VITAMINS A AND D TOPICAL OINTMENT 60 GM TUBE TP SCH (05:33)
[2021-01-25 06:28] VITALS: BP 117/85; PULSE 62; TEMP 97.7
[2021-01-26] MEDS ORDERED: chlordiazePOXIDE HCL 10 MG CAPSULE PO SCH (05:00)
[2021-01-27] MEDS ORDERED: chlordiazePOXIDE HCL 10 MG CAPSULE PO ONE (05:00)
== END 2021-01-25 09:50 | disposition left against medical advice (07) | DRG 770 ==
LOC: YASAS 09:34 → Y6N 11:11
PROVIDERS: ADMIT Allergy & Immunology; ATTEND Allergy & Immunology
PROC: HZ2ZZZZ Detoxification Services for Substance Abuse Treatment (ICD-10-PCS; principal; 2021-01-22)
DX: F10.230 Alcohol dependence with withdrawal, uncomplicated (principal); F14.20 Cocaine dependence, uncomplicated; F12.20 Cannabis dependence, uncomplicated; F17.210 Nicotine dependence, cigarettes, uncomplicated; F25.9 Schizoaffective disorder, unspecified; I10 Essential (primary) hypertension; J45.20 Mild intermittent asthma, uncomplicated; Z21 Asymptomatic human immunodeficiency virus [HIV] infection status; R01.1 Cardiac murmur, unspecified; I25.10 Atherosclerotic heart disease of native coronary artery without angina pectoris; I25.2 Old myocardial infarction; K21.9 Gastro-esophageal reflux disease without esophagitis; E78.5 Hyperlipidemia, unspecified; E66.9 Obesity, unspecified; Z68.31 Body mass index [BMI] 31.0-31.9, adult; Z86.11 Personal history of tuberculosis; Z95.5 Presence of coronary angioplasty implant and graft
CPT/HCPCS: 36415; 80053; 85027; 86780; 87811; 93005; 93010; C9803; U0003; U0005

== ENCOUNTER 2021-05-04 12:28 | Inpatient (IN) | payer OTHER ==
[2021-05-04] MEDS ORDERED: BISMUTH SUBSALICYLATE 262 MG/15 ML BTL PO PRN (13:21)
[2021-05-04] MEDS ORDERED: chlordiazePOXIDE HCL 25 MG CAPSULE PO PRN (13:21)
[2021-05-04] MEDS ORDERED: LOPERAMIDE HCL 2 MG CAPSULE PO PRN (13:21)
[2021-05-04] MEDS ORDERED: ONDANSETRON *ODT* 4 MG TABLET SL PRN (13:21)
[2021-05-04] MEDS ORDERED: ACETAMINOPHEN 325 MG TABLET (FP) PO PRN (13:21)
[2021-05-04] MEDS ORDERED: MENTHOL/PHENOL 1 EACH UD MM PRN (13:21)
[2021-05-04] MEDS ORDERED: MAGNESIUM HYDROX 2400MG/30ML ORAL SUSPENSION 30 ML CUP PO PRN (13:21)
[2021-05-04] MEDS ORDERED: NICOTINE 10 MG CARTRIDGE (INHALER) IH PRN (13:21)
[2021-05-04] MEDS ORDERED: METHOCARBAMOL 500 MG TABLET PO PRN (13:21)
[2021-05-04] MEDS ORDERED: MAGNESIUM CITRATE 300 ML BOTTLE PO PRN (13:21)
[2021-05-04] MEDS ORDERED: MAG HYDROX/AL HYDROX/SIMETH 30 ML UNIT-DOSE CUP PO PRN (13:21)
[2021-05-04] MEDS ORDERED: DICYCLOMINE HCL 10 MG CAPSULE PO PRN (13:21)
[2021-05-04 17:49] VITALS: BMI 31.0
[2021-05-04] MEDS ORDERED: ALBUTEROL SO4 HFA INHALER IH PRN (17:54)
[2021-05-04] MEDS: VITAMINS A AND D TOPICAL OINTMENT 60 GM TUBE TP SCH (18:20)
[2021-05-04] MEDS: chlordiazePOXIDE HCL 25 MG CAPSULE PO SCH ×2 (18:24→22:52)
[2021-05-04] MEDS: hydrOXYzine PAMOATE 25 MG CAPSULE (FP) PO SCH ×3 (18:24→23:21)
[2021-05-04] MEDS: ASPIRIN COATED 81 MG TABLET.EC PO SCH (18:24)
[2021-05-04 18:33] LABS: HEMOGLOBIN 13.4 GM/dL (11.7-16.9); MCH 30.2 pg (25.7-33.7); MCHC 34.3 g/dl (32.0-35.9); MEAN CELL VOLUME 88.2 fl (80-96); PLATELET COUNT 135 10^3/uL (134-434); RBC 4.42 M/mm3 (4.00-5.60); RDW 14.5 % (11.9-15.9); WHITE BLOOD COUNT 4.1 K/mm3 (4.0-10.0)
[2021-05-04 18:37] LABS: ALBUMIN 4.2 g/dl (3.4-5.0); BLOOD UREA NITROGEN 14.9 mg/dL (7-18)
[2021-05-04 18:38] LABS: CALCIUM 9.6 mg/dL (8.5-10.1)
[2021-05-04 18:40] LABS: BILIRUBIN,TOTAL 0.5 mg/dL (0.2-1); CREATININE 1.1 mg/dL (0.55-1.3)
[2021-05-04] MEDS: PRENATAL VITAMINS W/ FOLIC ACID TABLET (FP) PO SCH (20:30)
[2021-05-04] MEDS: NICOTINE 14 MG/24 HOURS TOPICAL PATCH TD SCH (20:30)
[2021-05-04] MEDS: ATORVASTATIN CA 80 MG TABLET (FP) PO SCH (22:52)
[2021-05-04] MEDS: THIAMINE HCL 100 MG TABLET (FP) PO SCH (22:52)
[2021-05-04] MEDS: MELATONIN 5 MG TABLETS PO SCH (22:52)
[2021-05-05] MEDS: VITAMINS A AND D TOPICAL OINTMENT 60 GM TUBE TP SCH ×4 (01:14→23:42)
[2021-05-05] MEDS: ACETAMINOPHEN 325 MG TABLET (FP) PO PRN ×2 (04:34→23:42)
[2021-05-05] MEDS: IBUPROFEN 400 MG TABLET (FP) PO PRN ×2 (04:45→11:47)
[2021-05-05] MEDS: hydrOXYzine PAMOATE 25 MG CAPSULE (FP) PO SCH ×5 (05:33→23:41)
[2021-05-05] MEDS: chlordiazePOXIDE HCL 25 MG CAPSULE PO SCH ×2 (05:33→12:04)
[2021-05-05] MEDS ORDERED: BICTEGRAV/EMTRICIT/TENOFOV (BIKTARVY) 50-200-25 MG TABLET PO SCH (08:00)
[2021-05-05] MEDS ORDERED: PATIENT'S OWN MEDICATION (NON-FORMULARY) (Olopatadine Hcl [Pataday] 2.5 ML Drops) OP SCH (10:00)
[2021-05-05] MEDS ORDERED: LORazepam 1 MG TABLET PO PRN (11:24)
[2021-05-05] MEDS ORDERED: LORazepam 2 MG TABLET PO ONE (11:24)
[2021-05-05] MEDS: ASPIRIN COATED 81 MG TABLET.EC PO SCH (11:46)
[2021-05-05] MEDS: CLOPIDOGREL BISULFATE 75 MG TABLET (FP) PO SCH (11:46)
[2021-05-05] MEDS: NICOTINE 14 MG/24 HOURS TOPICAL PATCH TD SCH (11:48)
[2021-05-05] MEDS: PRENATAL VITAMINS W/ FOLIC ACID TABLET (FP) PO SCH (11:49)
[2021-05-05] MEDS: LOSARTAN POTASSIUM 25 MG TABLET PO SCH (12:02)
[2021-05-05] MEDS: metoPROLOL SUCCINATE 25 MG TAB.SR.24H (FP) PO SCH (12:03)
[2021-05-05] MEDS: SENNOSIDES/DOCUSATE COMBO (SENNA PLUS) TABLET (UD) PO SCH ×2 (12:16→23:40)
[2021-05-05] MEDS: LORazepam 2 MG TABLET PO SCH ×2 (18:42→23:41)
[2021-05-05] MEDS: MELATONIN 5 MG TABLETS PO SCH (23:40)
[2021-05-05] MEDS: ATORVASTATIN CA 80 MG TABLET (FP) PO SCH (23:40)
[2021-05-05] MEDS: THIAMINE HCL 100 MG TABLET (FP) PO SCH (23:41)
[2021-05-06] MEDS: VITAMINS A AND D TOPICAL OINTMENT 60 GM TUBE TP SCH ×4 (01:36→18:27)
[2021-05-06] MEDS ORDERED: chlordiazePOXIDE HCL 25 MG CAPSULE PO SCH (05:00)
[2021-05-06] MEDS: LORazepam 2 MG TABLET PO SCH ×3 (07:30→18:25)
[2021-05-06] MEDS: hydrOXYzine PAMOATE 25 MG CAPSULE (FP) PO SCH ×5 (07:31→23:40)
[2021-05-06] MEDS: CLOPIDOGREL BISULFATE 75 MG TABLET (FP) PO SCH (10:34)
[2021-05-06] MEDS: ASPIRIN COATED 81 MG TABLET.EC PO SCH (10:34)
[2021-05-06] MEDS: SENNOSIDES/DOCUSATE COMBO (SENNA PLUS) TABLET (UD) PO SCH ×2 (10:35→23:40)
[2021-05-06] MEDS: IBUPROFEN 400 MG TABLET (FP) PO PRN (10:36)
[2021-05-06] MEDS: PRENATAL VITAMINS W/ FOLIC ACID TABLET (FP) PO SCH (10:37)
[2021-05-06] MEDS: metoPROLOL SUCCINATE 25 MG TAB.SR.24H (FP) PO SCH (10:37)
[2021-05-06] MEDS: NICOTINE 14 MG/24 HOURS TOPICAL PATCH TD SCH (10:37)
[2021-05-06] MEDS: LOSARTAN POTASSIUM 25 MG TABLET PO SCH (10:39)
[2021-05-06] MEDS ORDERED: ARTIFICIAL TEARS (POLYVINYL ALCOHOL) OPTH DROPS OU PRN (14:40)
[2021-05-06] MEDS ORDERED: CARBAMIDE PEROXIDE 6.5% OTIC 15 ML BOTTLE AU ONE (14:42)
[2021-05-06] MEDS: MELATONIN 5 MG TABLETS PO SCH (23:40)
[2021-05-06] MEDS: THIAMINE HCL 100 MG TABLET (FP) PO SCH (23:40)
[2021-05-06] MEDS: ATORVASTATIN CA 80 MG TABLET (FP) PO SCH (23:40)
[2021-05-07] MEDS ORDERED: chlordiazePOXIDE HCL 10 MG CAPSULE PO PRN
[2021-05-07] MEDS: LORazepam 2 MG TABLET PO SCH (00:06)
[2021-05-07] MEDS: VITAMINS A AND D TOPICAL OINTMENT 60 GM TUBE TP SCH ×3 (01:44→11:10)
[2021-05-07] MEDS ORDERED: chlordiazePOXIDE HCL 10 MG CAPSULE PO SCH (05:00)
[2021-05-07] MEDS: LORazepam 1 MG TABLET PO SCH ×2 (07:42→10:54)
[2021-05-07] MEDS: hydrOXYzine PAMOATE 25 MG CAPSULE (FP) PO SCH ×2 (07:43→10:54)
[2021-05-07] MEDS: CLOPIDOGREL BISULFATE 75 MG TABLET (FP) PO SCH (10:54)
[2021-05-07] MEDS: ASPIRIN COATED 81 MG TABLET.EC PO SCH (10:54)
[2021-05-07] MEDS: IBUPROFEN 400 MG TABLET (FP) PO PRN (10:55)
[2021-05-07] MEDS: PRENATAL VITAMINS W/ FOLIC ACID TABLET (FP) PO SCH (10:56)
[2021-05-07] MEDS: metoPROLOL SUCCINATE 25 MG TAB.SR.24H (FP) PO SCH (10:56)
[2021-05-07] MEDS: SENNOSIDES/DOCUSATE COMBO (SENNA PLUS) TABLET (UD) PO SCH (10:56)
[2021-05-07] MEDS: LOSARTAN POTASSIUM 25 MG TABLET PO SCH (10:56)
[2021-05-07] MEDS: NICOTINE 14 MG/24 HOURS TOPICAL PATCH TD SCH (10:56)
[2021-05-07 11:08] LABS: SARS-CoV-2 NAA Not Detected (Not Detected)
[2021-05-07 12:55] VITALS: BP 133/90; PULSE 97; TEMP 96.8
[2021-05-08] MEDS ORDERED: LORazepam 0.5 MG TABLET PO PRN
[2021-05-08] MEDS ORDERED: LORazepam 0.5 MG TABLET PO SCH (05:00)
[2021-05-08] MEDS ORDERED: chlordiazePOXIDE HCL 10 MG CAPSULE PO SCH (05:00)
[2021-05-09] MEDS ORDERED: chlordiazePOXIDE HCL 10 MG CAPSULE PO ONE (05:00)
[2021-05-09] MEDS ORDERED: LORazepam 0.5 MG TABLET PO ONE (05:00)
== END 2021-05-07 13:05 | disposition home or self-care (01) | DRG 774 ==
LOC: YASAS 12:28 → Y6N 16:25
PROVIDERS: ADMIT Allergy & Immunology; ATTEND Allergy & Immunology
PROC: HZ2ZZZZ Detoxification Services for Substance Abuse Treatment (ICD-10-PCS; principal; 2021-05-04)
DX: F14.20 Cocaine dependence, uncomplicated (principal); F12.20 Cannabis dependence, uncomplicated; F17.210 Nicotine dependence, cigarettes, uncomplicated; Z21 Asymptomatic human immunodeficiency virus [HIV] infection status; I25.10 Atherosclerotic heart disease of native coronary artery without angina pectoris; I10 Essential (primary) hypertension; I25.2 Old myocardial infarction; Z95.5 Presence of coronary angioplasty implant and graft; J45.909 Unspecified asthma, uncomplicated; K21.9 Gastro-esophageal reflux disease without esophagitis; H04.123 Dry eye syndrome of bilateral lacrimal glands; E78.5 Hyperlipidemia, unspecified
CPT/HCPCS: 36415; 80053; 85027; 86780; C9803-CS; Q0162; U0003; U0005

== ENCOUNTER 2021-08-24 09:33 | Inpatient (IN) | payer OTHER ==
[2021-08-24 10:21] VITALS: BMI 30.5
[2021-08-24] MEDS ORDERED: BENZOCAINE/MENTHOL (CHLORASEPTIC ) LOZENGE MM PRN (10:37)
[2021-08-24] MEDS ORDERED: ONDANSETRON *ODT* 4 MG TABLET SL PRN (10:37)
[2021-08-24] MEDS ORDERED: METHOCARBAMOL 500 MG TABLET PO PRN (10:37)
[2021-08-24] MEDS ORDERED: LOPERAMIDE HCL 2 MG CAPSULE PO PRN (10:37)
[2021-08-24] MEDS ORDERED: NICOTINE 10 MG CARTRIDGE (INHALER) IH PRN (10:37)
[2021-08-24] MEDS ORDERED: IBUPROFEN 400 MG TABLET (FP) PO PRN (10:37)
[2021-08-24] MEDS ORDERED: MAG HYDROX/AL HYDROX/SIMETH 30 ML UNIT-DOSE CUP PO PRN (10:37)
[2021-08-24] MEDS ORDERED: IBUPROFEN 600 MG TABLET (FP) PO PRN (10:37)
[2021-08-24] MEDS ORDERED: chlordiazePOXIDE HCL 25 MG CAPSULE PO PRN (10:37)
[2021-08-24] MEDS ORDERED: ACETAMINOPHEN 325 MG TABLET (FP) PO PRN ×2 (10:37)
[2021-08-24] MEDS ORDERED: BISMUTH SUBSALICYLATE 262 MG/15 ML BTL PO PRN (10:37)
[2021-08-24] MEDS ORDERED: MAGNESIUM HYDROX 2400MG/30ML ORAL SUSPENSION 30 ML CUP PO PRN (10:37)
[2021-08-24] MEDS ORDERED: MAGNESIUM CITRATE 300 ML BOTTLE PO PRN (10:37)
[2021-08-24] MEDS ORDERED: DICYCLOMINE HCL 10 MG CAPSULE PO PRN (10:37)
[2021-08-24] MEDS ORDERED: ALBUTEROL SO4 HFA INHALER IH PRN (10:41)
[2021-08-24] MEDS: PRENATAL VITAMINS W/ FOLIC ACID TABLET (FP) PO SCH (12:20)
[2021-08-24] MEDS: chlordiazePOXIDE HCL 25 MG CAPSULE PO SCH ×3 (12:21→23:43)
[2021-08-24] MEDS: NICOTINE 7 MG/24 HOURS TOPICAL PATCH TD SCH (12:24)
[2021-08-24] MEDS: hydrOXYzine PAMOATE 25 MG CAPSULE (FP) PO SCH ×3 (14:53→23:44)
[2021-08-24] MEDS: ATORVASTATIN CA 80 MG TABLET (FP) PO SCH (23:43)
[2021-08-24] MEDS: MELATONIN 5 MG TABLETS PO SCH (23:43)
[2021-08-24] MEDS: THIAMINE HCL 100 MG TABLET (FP) PO SCH (23:44)
[2021-08-25] MEDS: chlordiazePOXIDE HCL 25 MG CAPSULE PO SCH ×4 (05:48→23:39)
[2021-08-25] MEDS: hydrOXYzine PAMOATE 25 MG CAPSULE (FP) PO SCH ×5 (05:48→23:39)
[2021-08-25] MEDS ORDERED: NAPHAZOLINE/PHENIRAMINE OPHTHALMIC 15 ML BOTTLE OU PRN (10:00)
[2021-08-25] MEDS: NICOTINE 7 MG/24 HOURS TOPICAL PATCH TD SCH (10:54)
[2021-08-25] MEDS: ASPIRIN COATED 81 MG TABLET.EC PO SCH (10:54)
[2021-08-25] MEDS: PRENATAL VITAMINS W/ FOLIC ACID TABLET (FP) PO SCH (10:54)
[2021-08-25] MEDS: CLOPIDOGREL BISULFATE 75 MG TABLET (FP) PO SCH (10:54)
[2021-08-25 16:26] LABS: HEMATOCRIT 36.2 % (35.4-49); HEMOGLOBIN 12.3 GM/dL (11.7-16.9); MCHC 34.1 g/dl (32.0-35.9); MEAN CELL VOLUME 88.1 fl (80-96); MEAN PLT VOLUME 10.3 fl (7.5-11.1); PLATELET COUNT 144 10^3/uL (134-434); RBC 4.11 M/mm3 (4.00-5.60); RDW 14.5 % (11.9-15.9); WHITE BLOOD COUNT 3.4 K/mm3 (4.0-10.0)
[2021-08-25 16:32] LABS: ALBUMIN 3.4 g/dl (3.4-5.0); CALCIUM 9.1 mg/dL (8.5-10.1)
[2021-08-25 16:33] LABS: BLOOD UREA NITROGEN 11.8 mg/dL (7-18)
[2021-08-25 16:36] LABS: CREATININE 0.8 mg/dL (0.55-1.3)
[2021-08-25 16:37] LABS: BILIRUBIN,TOTAL 0.3 mg/dL (0.2-1); TOT PROT 7.1 g/dl (6.4-8.2)
[2021-08-25] MEDS: ARTIFICIAL TEARS (POLYVINYL ALCOHOL) OPTH DROPS OU SCH (23:38)
[2021-08-25] MEDS: MELATONIN 5 MG TABLETS PO SCH (23:39)
[2021-08-25] MEDS: THIAMINE HCL 100 MG TABLET (FP) PO SCH (23:39)
[2021-08-25] MEDS: ATORVASTATIN CA 80 MG TABLET (FP) PO SCH (23:39)
[2021-08-26] MEDS: hydrOXYzine PAMOATE 25 MG CAPSULE (FP) PO SCH ×3 (05:26→13:57)
[2021-08-26] MEDS: chlordiazePOXIDE HCL 25 MG CAPSULE PO SCH ×2 (05:26→10:24)
[2021-08-26 08:31] VITALS: TEMP 97.1
[2021-08-26] MEDS: PRENATAL VITAMINS W/ FOLIC ACID TABLET (FP) PO SCH (10:24)
[2021-08-26] MEDS: CLOPIDOGREL BISULFATE 75 MG TABLET (FP) PO SCH (10:24)
[2021-08-26] MEDS: ASPIRIN COATED 81 MG TABLET.EC PO SCH (10:24)
[2021-08-26] MEDS: NICOTINE 7 MG/24 HOURS TOPICAL PATCH TD SCH (10:25)
[2021-08-26] MEDS: ARTIFICIAL TEARS (POLYVINYL ALCOHOL) OPTH DROPS OU SCH (10:25)
[2021-08-26 13:04] VITALS: BP 127/80; PULSE 73; RESP 19
[2021-08-27] MEDS ORDERED: chlordiazePOXIDE HCL 10 MG CAPSULE PO PRN
[2021-08-27] MEDS ORDERED: chlordiazePOXIDE HCL 10 MG CAPSULE PO SCH (05:00)
[2021-08-28] MEDS ORDERED: chlordiazePOXIDE HCL 10 MG CAPSULE PO SCH (05:00)
[2021-08-29] MEDS ORDERED: chlordiazePOXIDE HCL 10 MG CAPSULE PO ONE (05:00)
== END 2021-08-26 14:21 | disposition left against medical advice (07) | DRG 770 ==
LOC: YASAS 09:33 → Y6N 11:31
PROVIDERS: ADMIT Allergy & Immunology; ATTEND Surgery
PROC: HZ2ZZZZ Detoxification Services for Substance Abuse Treatment (ICD-10-PCS; principal; 2021-08-24)
DX: F10.230 Alcohol dependence with withdrawal, uncomplicated (principal); F14.20 Cocaine dependence, uncomplicated; F12.20 Cannabis dependence, uncomplicated; F17.210 Nicotine dependence, cigarettes, uncomplicated; F25.9 Schizoaffective disorder, unspecified; F41.9 Anxiety disorder, unspecified; Z21 Asymptomatic human immunodeficiency virus [HIV] infection status; I25.10 Atherosclerotic heart disease of native coronary artery without angina pectoris; I10 Essential (primary) hypertension; I25.2 Old myocardial infarction; Z95.5 Presence of coronary angioplasty implant and graft; J45.20 Mild intermittent asthma, uncomplicated; E66.9 Obesity, unspecified; Z68.30 Body mass index [BMI] 30.0-30.9, adult; Z28.310 Unvaccinated for COVID-19; Z28.21 Immunization not carried out because of patient refusal
CPT/HCPCS: 36415; 80053; 85027; 86780; C9803-CS; U0003; U0005

== ENCOUNTER 2022-07-14 17:48 | Inpatient (IN) | payer OTHER ==
[2022-07-14 20:35] VITALS: BMI 29.8
[2022-07-14] MEDS ORDERED: ALBUTEROL SO4 HFA INHALER IH PRN (21:57)
[2022-07-14] MEDS ORDERED: NICOTINE 10 MG CARTRIDGE (INHALER) IH PRN (22:10)
[2022-07-14] MEDS ORDERED: ONDANSETRON *ODT* 4 MG TABLET SL PRN (22:10)
[2022-07-14] MEDS ORDERED: NICOTINE POLACRILEX 2 MG GUM BUC PRN (22:10)
[2022-07-14] MEDS ORDERED: ACETAMINOPHEN 325 MG TABLET (FP) PO PRN ×2 (22:10)
[2022-07-14] MEDS ORDERED: P-EPHED 60MG/TRIPROLIDI 2.5MG TABLET PO PRN (22:10)
[2022-07-14] MEDS ORDERED: BENZONATATE 200 MG CAPSULE PO PRN (22:10)
[2022-07-14] MEDS ORDERED: MELATONIN 5 MG TABLETS PO PRN (22:10)
[2022-07-14] MEDS ORDERED: BENZOCAINE/MENTHOL (CHLORASEPTIC ) LOZENGE MM PRN (22:10)
[2022-07-14] MEDS ORDERED: LOPERAMIDE HCL 2 MG CAPSULE PO PRN (22:10)
[2022-07-14] MEDS ORDERED: NALOXONE HCL 0.4 MG/ML VIAL IM PRN (22:10)
[2022-07-14] MEDS ORDERED: BISMUTH SUBSALICYLATE 524 MG/30 ML PO PRN (22:10)
[2022-07-14] MEDS ORDERED: POLYETHYLENE GLYCOL (HEALTHYLAX) 3350 17 GM PACKET PO PRN (22:10)
[2022-07-14] MEDS ORDERED: NALOXONE HCL (KLOXXADO) 8 MG SPRAY NS PRN (22:10)
[2022-07-14] MEDS ORDERED: guaiFENesin 600 MG TABLET.ER (FP) PO PRN (22:10)
[2022-07-14] MEDS ORDERED: MAG HYDROX/AL HYDROX/SIMETH 30 ML UNIT-DOSE CUP PO PRN (22:10)
[2022-07-14] MEDS ORDERED: DICYCLOMINE HCL 10 MG CAPSULE PO PRN (22:10)
[2022-07-14] MEDS ORDERED: MAGNESIUM HYDROX 2400MG/30ML ORAL SUSPENSION 30 ML CUP PO PRN (22:10)
[2022-07-14] MEDS ORDERED: hydrOXYzine PAMOATE 25 MG CAPSULE (FP) PO PRN (22:10)
[2022-07-14] MEDS ORDERED: diazePAM 5 MG TABLET PO PRN (22:15)
[2022-07-14] MEDS ORDERED: TETRAHYDROZOLINE HCL EYE DROPS OU PRN (22:16)
[2022-07-15 09:58] LABS: HEMATOCRIT 34.7 % (35.4-49); MCH 29.5 pg (25.7-33.7); MCHC 34.5 g/dl (32.0-35.9); MEAN CELL VOLUME 85.4 fl (80-96); MEAN PLT VOLUME 9.7 fl (7.5-11.1); PLATELET COUNT 131 10^3/uL (134-434); RBC 4.06 M/mm3 (4.00-5.60); RDW 14.6 % (11.9-15.9); WHITE BLOOD COUNT 3.9 K/mm3 (4.0-10.0)
[2022-07-15 10:06] LABS: ALBUMIN 3.4 g/dl (3.4-5.0); BLOOD UREA NITROGEN 13.6 mg/dL (7-18); CREATININE 0.9 mg/dL (0.55-1.3)
[2022-07-15 10:08] LABS: BILIRUBIN,TOTAL 0.4 mg/dL (0.2-1); TOT PROT 7.3 g/dl (6.4-8.2)
[2022-07-15] MEDS: BACITRACIN ZINC 15 GM TUBE TOPICAL OINTMENT TP SCH ×2 (10:59→22:55)
[2022-07-15] MEDS: PRENATAL VITAMINS W/ FOLIC ACID TABLET (FP) PO SCH (10:59)
[2022-07-15] MEDS ORDERED: chlordiazePOXIDE HCL 10 MG CAPSULE PO PRN (11:36)
[2022-07-15] MEDS: ASPIRIN 81 MG CHEWABLE TABLETS PO SCH ×2 (11:49→17:20)
[2022-07-15] MEDS: OFLOXACIN 0.3% OTIC SOLUTION 5 ML BOTTLE AU SCH ×5 (13:11→23:01)
[2022-07-15] MEDS: VITAMINS A AND D TOPICAL OINTMENT 60 GM TUBE TP SCH ×4 (13:12→17:56)
[2022-07-15] MEDS: chlordiazePOXIDE HCL 25 MG CAPSULE PO SCH ×2 (17:22→22:55)
[2022-07-15] MEDS: THIAMINE HCL 100 MG TABLET (FP) PO SCH (22:55)
[2022-07-16] MEDS: VITAMINS A AND D TOPICAL OINTMENT 60 GM TUBE TP SCH ×4 (00:25→17:18)
[2022-07-16] MEDS: chlordiazePOXIDE HCL 25 MG CAPSULE PO SCH ×4 (05:58→22:34)
[2022-07-16] MEDS: OFLOXACIN 0.3% OTIC SOLUTION 5 ML BOTTLE AU SCH ×4 (06:02→22:35)
[2022-07-16] MEDS: ASPIRIN 81 MG CHEWABLE TABLETS PO SCH (10:19)
[2022-07-16] MEDS: PRENATAL VITAMINS W/ FOLIC ACID TABLET (FP) PO SCH (10:19)
[2022-07-16] MEDS: BACITRACIN ZINC 15 GM TUBE TOPICAL OINTMENT TP SCH ×2 (10:19→22:37)
[2022-07-16] MEDS: THIAMINE HCL 100 MG TABLET (FP) PO SCH (22:34)
[2022-07-17] MEDS: VITAMINS A AND D TOPICAL OINTMENT 60 GM TUBE TP SCH ×4 (00:55→17:13)
[2022-07-17] MEDS: OFLOXACIN 0.3% OTIC SOLUTION 5 ML BOTTLE AU SCH ×4 (04:45→22:59)
[2022-07-17] MEDS: chlordiazePOXIDE HCL 10 MG CAPSULE PO SCH ×4 (05:34→22:04)
[2022-07-17] MEDS: ASPIRIN 81 MG CHEWABLE TABLETS PO SCH (10:49)
[2022-07-17] MEDS: BACITRACIN ZINC 15 GM TUBE TOPICAL OINTMENT TP SCH ×2 (10:49→22:02)
[2022-07-17] MEDS: PRENATAL VITAMINS W/ FOLIC ACID TABLET (FP) PO SCH (10:49)
[2022-07-17] MEDS ORDERED: LOSARTAN POTASSIUM 50 MG TABLET PO SCH (11:00)
[2022-07-17 21:58] VITALS: RESP 18; TEMP 97.7
[2022-07-17] MEDS: THIAMINE HCL 100 MG TABLET (FP) PO SCH (22:02)
[2022-07-17] MEDS: BUDESONIDE/FORMETEROL FUMARATE 160/4.5 mcg INHALER IH SCH ×2 (22:05→23:03)
[2022-07-18] MEDS: VITAMINS A AND D TOPICAL OINTMENT 60 GM TUBE TP SCH ×2 (01:00→06:00)
[2022-07-18] MEDS ORDERED: chlordiazePOXIDE HCL 10 MG CAPSULE PO SCH (05:00)
[2022-07-18] MEDS: OFLOXACIN 0.3% OTIC SOLUTION 5 ML BOTTLE AU SCH (05:15)
[2022-07-18 07:20] VITALS: BP 108/72; PULSE 66
[2022-07-19] MEDS ORDERED: chlordiazePOXIDE HCL 10 MG CAPSULE PO ONE (05:00)
== END 2022-07-18 10:10 | disposition home or self-care (01) | DRG 774 ==
LOC: YASAS 17:48 → Y6N 23:51
PROVIDERS: ADMIT Allergy & Immunology; ATTEND Surgery
PROC: HZ2ZZZZ Detoxification Services for Substance Abuse Treatment (ICD-10-PCS; principal; 2022-07-14)
DX: F10.230 Alcohol dependence with withdrawal, uncomplicated (principal); F14.20 Cocaine dependence, uncomplicated; F12.20 Cannabis dependence, uncomplicated; F17.210 Nicotine dependence, cigarettes, uncomplicated; I10 Essential (primary) hypertension; J45.20 Mild intermittent asthma, uncomplicated; H04.123 Dry eye syndrome of bilateral lacrimal glands; H10.33 Unspecified acute conjunctivitis, bilateral; Z86.11 Personal history of tuberculosis; Z28.310 Unvaccinated for COVID-19; Z28.21 Immunization not carried out because of patient refusal
CPT/HCPCS: 36415; 71045-TC-FY; 80053; 85027; 86780; 87635

== ENCOUNTER 2023-02-06 12:05 | Inpatient (IN) | payer OTHER ==
[2023-02-06 13:00] VITALS: BMI 30.4
[2023-02-06] MEDS ORDERED: MAGNESIUM HYDROX 2400MG/30ML ORAL SUSPENSION 30 ML CUP PO PRN (15:32)
[2023-02-06] MEDS ORDERED: LOPERAMIDE HCL 2 MG CAPSULE PO PRN (15:32)
[2023-02-06] MEDS ORDERED: ACETAMINOPHEN 325 MG TABLET (FP) PO PRN (15:32)
[2023-02-06] MEDS ORDERED: BENZONATATE 200 MG CAPSULE PO PRN (15:32)
[2023-02-06] MEDS ORDERED: NICOTINE POLACRILEX 2 MG GUM BUC PRN (15:32)
[2023-02-06] MEDS ORDERED: NALOXONE HCL (KLOXXADO) 8 MG SPRAY NS PRN (15:32)
[2023-02-06] MEDS ORDERED: BISMUTH SUBSALICYLATE 524 MG/30 ML PO PRN (15:32)
[2023-02-06] MEDS ORDERED: hydrOXYzine PAMOATE 25 MG CAPSULE (FP) PO PRN (15:32)
[2023-02-06] MEDS ORDERED: IBUPROFEN 600 MG TABLET (FP) PO PRN (15:32)
[2023-02-06] MEDS ORDERED: ONDANSETRON *ODT* 4 MG TABLET SL PRN (15:32)
[2023-02-06] MEDS ORDERED: POLYETHYLENE GLYCOL (HEALTHYLAX) 3350 17 GM PACKET PO PRN (15:32)
[2023-02-06] MEDS ORDERED: MAG HYDROX/AL HYDROX/SIMETH 30 ML UNIT-DOSE CUP PO PRN (15:32)
[2023-02-06] MEDS ORDERED: METHOCARBAMOL 500 MG TABLET PO PRN (15:32)
[2023-02-06] MEDS ORDERED: IBUPROFEN 400 MG TABLET (FP) PO PRN (15:32)
[2023-02-06] MEDS ORDERED: NALOXONE HCL 0.4 MG/ML VIAL IM PRN (15:32)
[2023-02-06] MEDS: MELATONIN 5 MG TABLETS PO SCH (22:26)
[2023-02-06] MEDS: THIAMINE HCL 100 MG TABLET (FP) PO SCH (22:26)
[2023-02-07] MEDS ORDERED: chlordiazePOXIDE HCL 25 MG CAPSULE PO PRN (09:10)
[2023-02-07] MEDS ORDERED: ALBUTEROL SO4 HFA INHALER IH PRN (09:13)
[2023-02-07] MEDS: ASPIRIN 81 MG CHEWABLE TABLETS PO SCH (10:22)
[2023-02-07] MEDS: METOPROLOL TARTRATE 25 MG TABLET (FP) PO SCH (10:22)
[2023-02-07] MEDS: BUDESONIDE/FORMETEROL FUMARATE 160/4.5 mcg INHALER IH SCH (10:22)
[2023-02-07] MEDS: NICOTINE 21 MG/24 HOURS TOPICAL PATCH TD SCH (10:23)
[2023-02-07] MEDS: chlordiazePOXIDE HCL 25 MG CAPSULE PO SCH (10:23)
[2023-02-07] MEDS: PRENATAL VITAMINS W/ FOLIC ACID TABLET (FP) PO SCH (10:23)
[2023-02-07] MEDS: CLOTRIMAZOLE 1% CREAM TP SCH (10:42)
[2023-02-07] MEDS: LOSARTAN POTASSIUM 25 MG TABLET PO SCH (10:49)
[2023-02-07 12:24] LABS: CHLORIDE 108 mmol/L (98-107); POTASSIUM 4.2 mmol/L (3.5-5.1); SODIUM 141 mmol/L (136-145)
[2023-02-07 12:30] LABS: HEMOGLOBIN 12.1 GM/dL (11.7-16.9); MCHC 32.7 g/dl (32.0-35.9); MEAN CELL VOLUME 88.9 fl (80-96); MEAN PLT VOLUME 10.4 fl (7.5-11.1); PLATELET COUNT 153 10^3/uL (134-434); RBC 4.16 M/mm3 (4.00-5.60); RDW 14.4 % (11.9-15.9); WHITE BLOOD COUNT 5.4 K/mm3 (4.0-10.0)
[2023-02-07 12:35] LABS: ALBUMIN 3.2 g/dl (3.4-5.0); CALCIUM 9.1 mg/dL (8.5-10.1)
[2023-02-07 12:36] LABS: ANION GAP 5 mmol/L (4-13); BLOOD UREA NITROGEN 11.5 mg/dL (7-18); CO2 27 mmol/L (21-32); GLUCOSE,RANDOM 152 mg/dL (74-106)
[2023-02-07 12:39] LABS: SGOT/AST 52 U/L (15-37); SGPT/ALT 40 U/L (13-61)
[2023-02-07 12:40] LABS: TOT PROT 7.2 g/dl (6.4-8.2)
[2023-02-07 12:42] LABS: ALK PHOS 70 U/L (45-117); BILIRUBIN,TOTAL 0.4 mg/dL (0.2-1)
[2023-02-08] MEDS: guaiFENesin 600 MG TABLET.ER (FP) PO PRN (05:29)
[2023-02-08 20:40] VITALS: RESP 18
[2023-02-09] MEDS: BENZOCAINE/MENTHOL (CHLORASEPTIC ) LOZENGE MM PRN (02:11)
[2023-02-09] MEDS: chlordiazePOXIDE HCL 25 MG CAPSULE PO SCH (05:32)
[2023-02-09] MEDS: FLU VACCINE (FLULAVAL) PF 60 MCG/0.5 ML SYRINGE 2023-2024 IM ONE (11:29)
[2023-02-09 13:14] VITALS: BP 100/70; PULSE 80; TEMP 97.8
[2023-02-10] MEDS ORDERED: chlordiazePOXIDE HCL 10 MG CAPSULE PO PRN
[2023-02-10] MEDS ORDERED: chlordiazePOXIDE HCL 10 MG CAPSULE PO SCH (05:00)
[2023-02-11] MEDS ORDERED: chlordiazePOXIDE HCL 10 MG CAPSULE PO SCH (05:00)
[2023-02-12] MEDS ORDERED: chlordiazePOXIDE HCL 10 MG CAPSULE PO ONE (05:00)
== END 2023-02-09 13:27 | disposition left against medical advice (07) | DRG 770 ==
LOC: YASAS 12:05 → Y3N 15:52
PROVIDERS: ADMIT Allergy & Immunology; ATTEND Surgery
PROC: HZ2ZZZZ Detoxification Services for Substance Abuse Treatment (ICD-10-PCS; principal; 2023-02-06)
DX: F10.230 Alcohol dependence with withdrawal, uncomplicated (principal); F14.20 Cocaine dependence, uncomplicated; F12.20 Cannabis dependence, uncomplicated; F17.210 Nicotine dependence, cigarettes, uncomplicated; F41.9 Anxiety disorder, unspecified; Z21 Asymptomatic human immunodeficiency virus [HIV] infection status; G47.00 Insomnia, unspecified; I25.10 Atherosclerotic heart disease of native coronary artery without angina pectoris; I10 Essential (primary) hypertension; Z95.5 Presence of coronary angioplasty implant and graft; E78.2 Mixed hyperlipidemia; K21.9 Gastro-esophageal reflux disease without esophagitis; J45.20 Mild intermittent asthma, uncomplicated; Z86.11 Personal history of tuberculosis; Z28.310 Unvaccinated for COVID-19; Z28.21 Immunization not carried out because of patient refusal
CPT/HCPCS: 36415; 80053; 80307; 85027; 86780; 87635; 90686; G0008

== ENCOUNTER 2023-04-09 17:00 | Inpatient (IN) | payer OTHER ==
[2023-04-09 17:38] VITALS: BMI 29.3
[2023-04-09] MEDS ORDERED: hydrOXYzine PAMOATE 25 MG CAPSULE (FP) PO PRN (19:02)
[2023-04-09] MEDS ORDERED: IBUPROFEN 600 MG TABLET (FP) PO PRN (19:02)
[2023-04-09] MEDS ORDERED: BENZOCAINE/MENTHOL (CHLORASEPTIC ) LOZENGE MM PRN (19:02)
[2023-04-09] MEDS ORDERED: MAG HYDROX/AL HYDROX/SIMETH 30 ML UNIT-DOSE CUP PO PRN (19:02)
[2023-04-09] MEDS ORDERED: LOPERAMIDE HCL 2 MG CAPSULE PO PRN (19:02)
[2023-04-09] MEDS ORDERED: IBUPROFEN 400 MG TABLET (FP) PO PRN (19:02)
[2023-04-09] MEDS ORDERED: guaiFENesin 600 MG TABLET.ER (FP) PO PRN (19:02)
[2023-04-09] MEDS ORDERED: BENZONATATE 200 MG CAPSULE PO PRN (19:02)
[2023-04-09] MEDS ORDERED: MAGNESIUM HYDROX 2400MG/30ML ORAL SUSPENSION 30 ML CUP PO PRN (19:02)
[2023-04-09] MEDS ORDERED: P-EPHED 60MG/TRIPROLIDI 2.5MG TABLET PO PRN (19:02)
[2023-04-09] MEDS ORDERED: NICOTINE POLACRILEX 2 MG GUM BUC PRN (19:02)
[2023-04-09] MEDS ORDERED: POLYETHYLENE GLYCOL (HEALTHYLAX) 3350 17 GM PACKET PO PRN (19:02)
[2023-04-09] MEDS: ATORVASTATIN CA 40 MG TABLET (FP) PO SCH (22:42)
[2023-04-09] MEDS: MELATONIN 5 MG TABLETS PO SCH (22:43)
[2023-04-09] MEDS: THIAMINE HCL 100 MG TABLET (FP) PO SCH (22:43)
[2023-04-09 23:55] LABS: PH,URINE 5.5 (5.0-8.0); URINE APPEARANCE CLEAR; URINE BILIRUBIN NEGATIVE (NEGATIVE); URINE COLOR YELLOW; URINE GLUCOSE (UA) NEGATIVE (NEGATIVE); URINE KETONE NEGATIVE (NEGATIVE); URINE LEUK ESTERASE NEGATIVE (NEGATIVE); URINE NITRITE NEGATIVE (NEGATIVE); URINE PROTEIN NEGATIVE (NEGATIVE); URINE UROBILINOGEN 0.2 mg/dL (0.2-1.0)
[2023-04-10] MEDS: VITAMINS A AND D TOPICAL OINTMENT TP SCH (01:29)
[2023-04-10] MEDS: PRENATAL VITAMINS W/ FOLIC ACID TABLET (FP) PO SCH (09:49)
[2023-04-10] MEDS: DARUNAVIR/COB/EMTRI/TENOF ALAF 1 EACH TABLET PO SCH (09:49)
[2023-04-10] MEDS: ASPIRIN 81 MG CHEWABLE TABLETS PO SCH (09:49)
[2023-04-10 12:59] LABS: HEMOGLOBIN 11.6 GM/dL (11.7-16.9); MCH 30.1 pg (25.7-33.7); MCHC 34.2 g/dl (32.0-35.9); MEAN PLT VOLUME 9.9 fl (7.5-11.1); PLATELET COUNT 172 10^3/uL (134-434); RBC 3.87 M/mm3 (4.00-5.60); RDW 15.6 % (11.9-15.9); WHITE BLOOD COUNT 4.3 K/mm3 (4.0-10.0)
[2023-04-10] MEDS ORDERED: ALBUTEROL SO4 HFA INHALER IH PRN (13:25)
[2023-04-10 13:28] LABS: POTASSIUM 4.6 mmol/L (3.5-5.1)
[2023-04-10 13:36] LABS: ALBUMIN 3.5 g/dl (3.4-5.0); CALCIUM 9.1 mg/dL (8.5-10.1)
[2023-04-10 13:37] LABS: BLOOD UREA NITROGEN 16.3 mg/dL (7-18)
[2023-04-10 13:39] LABS: CREATININE 0.8 mg/dL (0.55-1.3)
[2023-04-10 13:41] LABS: BILIRUBIN,TOTAL 0.3 mg/dL (0.2-1); TOT PROT 7.2 g/dl (6.4-8.2)
[2023-04-10] MEDS: BUDESONIDE/FORMETEROL FUMARATE 160/4.5 mcg INHALER IH SCH (14:12)
[2023-04-10] MEDS: METOPROLOL TARTRATE 25 MG TABLET (FP) PO SCH (14:12)
[2023-04-10] MEDS: LOSARTAN POTASSIUM 25 MG TABLET PO SCH (14:12)
[2023-04-10] MEDS: diphenhydrAMINE HCL 25 MG CAPSULE (FP) PO PRN (21:21)
[2023-04-10] MEDS: CLOPIDOGREL BISULFATE 75 MG TABLET (FP) PO SCH (21:21)
[2023-04-11] MEDS: ACETAMINOPHEN 325 MG TABLET (FP) PO PRN (06:09)
[2023-04-12] MEDS: ASPIRIN 81 MG CHEWABLE TABLETS PO SCH (12:06)
[2023-04-17 06:41] VITALS: RESP 18
[2023-04-17 09:14] VITALS: BP 115/78; PULSE 63; TEMP 97.5
== END 2023-04-17 15:48 | disposition home or self-care (01) | DRG 772 ==
LOC: YASAS 17:00 → Y3W 21:32
PROVIDERS: ADMIT Allergy & Immunology; ATTEND Psychiatry & Neurology Pain Medicine
PROC: HZ42ZZZ Group Counseling for Substance Abuse Treatment, Cognitive-Behavioral (ICD-10-PCS; principal; 2023-04-09)
DX: F10.20 Alcohol dependence, uncomplicated (principal); F14.20 Cocaine dependence, uncomplicated; F17.210 Nicotine dependence, cigarettes, uncomplicated; F41.9 Anxiety disorder, unspecified; B20 Human immunodeficiency virus [HIV] disease; G47.00 Insomnia, unspecified; I25.10 Atherosclerotic heart disease of native coronary artery without angina pectoris; I10 Essential (primary) hypertension; Z95.5 Presence of coronary angioplasty implant and graft; J45.20 Mild intermittent asthma, uncomplicated; K21.9 Gastro-esophageal reflux disease without esophagitis; Z86.11 Personal history of tuberculosis; Z28.310 Unvaccinated for COVID-19; Z28.21 Immunization not carried out because of patient refusal; Z56.0 Unemployment, unspecified; Z59.00 Homelessness unspecified
CPT/HCPCS: 0241U-QW; 36415; 80053; 80305; 81003; 85027; 86780; 87811

== ENCOUNTER 2023-07-09 11:21 | Inpatient (IN) | payer OTHER ==
[2023-07-09 11:43] VITALS: BMI 29.2
[2023-07-09] MEDS ORDERED: IBUPROFEN 400 MG TABLET (FP) PO PRN (12:23)
[2023-07-09] MEDS ORDERED: BENZOCAINE/MENTHOL (CHLORASEPTIC ) LOZENGE MM PRN (12:23)
[2023-07-09] MEDS ORDERED: ONDANSETRON *ODT* 4 MG TABLET SL PRN (12:23)
[2023-07-09] MEDS ORDERED: METHOCARBAMOL 500 MG TABLET PO PRN (12:23)
[2023-07-09] MEDS ORDERED: MAGNESIUM HYDROX 2400MG/30ML ORAL SUSPENSION 30 ML CUP PO PRN (12:23)
[2023-07-09] MEDS ORDERED: MAG HYDROX/AL HYDROX/SIMETH 30 ML UNIT-DOSE CUP PO PRN (12:23)
[2023-07-09] MEDS ORDERED: POLYETHYLENE GLYCOL (HEALTHYLAX) 3350 17 GM PACKET PO PRN (12:23)
[2023-07-09] MEDS ORDERED: IBUPROFEN 600 MG TABLET (FP) PO PRN (12:23)
[2023-07-09] MEDS ORDERED: NALOXONE HCL (KLOXXADO) 8 MG SPRAY NS PRN (12:23)
[2023-07-09] MEDS ORDERED: guaiFENesin 600 MG TABLET.ER (FP) PO PRN (12:23)
[2023-07-09] MEDS ORDERED: DICYCLOMINE HCL 10 MG CAPSULE PO PRN (12:23)
[2023-07-09] MEDS ORDERED: ACETAMINOPHEN 325 MG TABLET (FP) PO PRN (12:23)
[2023-07-09] MEDS ORDERED: chlordiazePOXIDE HCL 25 MG CAPSULE PO PRN (12:23)
[2023-07-09] MEDS ORDERED: hydrOXYzine PAMOATE 25 MG CAPSULE (FP) PO PRN (12:23)
[2023-07-09] MEDS ORDERED: BENZONATATE 200 MG CAPSULE PO PRN (12:23)
[2023-07-09] MEDS ORDERED: BISMUTH SUBSALICYLATE 262 MG/15 ML BTL PO PRN (12:23)
[2023-07-09] MEDS ORDERED: NALOXONE HCL 0.4 MG/ML VIAL IM PRN (12:23)
[2023-07-09] MEDS ORDERED: LOPERAMIDE HCL 2 MG CAPSULE PO PRN (12:23)
[2023-07-09] MEDS ORDERED: ALBUTEROL SO4 HFA INHALER IH PRN (12:25)
[2023-07-09] MEDS ORDERED: PRENATAL VITAMINS W/ FOLIC ACID TABLET (FP) PO ONE (12:56)
[2023-07-09] MEDS: PRENATAL VITAMINS W/ FOLIC ACID TABLET (FP) PO SCH (12:56)
[2023-07-09] MEDS: chlordiazePOXIDE HCL 25 MG CAPSULE PO SCH (17:27)
[2023-07-09] MEDS: MELATONIN 5 MG TABLETS PO SCH (23:41)
[2023-07-09] MEDS: BUDESONIDE/FORMETEROL FUMARATE 160/4.5 mcg INHALER IH SCH (23:41)
[2023-07-09] MEDS: ATORVASTATIN CA 40 MG TABLET (FP) PO SCH (23:41)
[2023-07-09] MEDS: THIAMINE 100 MG TABLET PO SCH (23:41)
[2023-07-10] MEDS: LOSARTAN POTASSIUM 25 MG TABLET PO SCH (10:08)
[2023-07-10] MEDS: METOPROLOL TARTRATE 25 MG TABLET (FP) PO SCH (10:08)
[2023-07-10] MEDS: ASPIRIN 81 MG CHEWABLE TABLETS PO SCH (10:08)
[2023-07-10] MEDS: NICOTINE 7 MG/24 HOURS TOPICAL PATCH TD SCH (10:11)
[2023-07-10] MEDS: BICTEGRAV/EMTRICIT/TENOFOV (BIKTARVY) 50-200-25 MG TABLET PO SCH (10:40)
[2023-07-11] MEDS: chlordiazePOXIDE HCL 25 MG CAPSULE PO SCH (06:24)
[2023-07-11 06:34] VITALS: RESP 16
[2023-07-11] MEDS: LOSARTAN POTASSIUM 25 MG TABLET PO SCH (11:24)
[2023-07-11] MEDS: METOPROLOL TARTRATE 25 MG TABLET (FP) PO SCH (11:24)
[2023-07-11 17:06] VITALS: BP 103/60; PULSE 60; TEMP 97.7
[2023-07-12] MEDS ORDERED: chlordiazePOXIDE HCL 10 MG CAPSULE PO PRN
[2023-07-12] MEDS ORDERED: chlordiazePOXIDE HCL 10 MG CAPSULE PO SCH (05:00)
[2023-07-13] MEDS ORDERED: chlordiazePOXIDE HCL 10 MG CAPSULE PO SCH (05:00)
[2023-07-14] MEDS ORDERED: chlordiazePOXIDE HCL 10 MG CAPSULE PO ONE (05:00)
== END 2023-07-11 17:33 | disposition left against medical advice (07) | DRG 770 ==
LOC: YASAS 11:21 → Y6N 13:05
PROVIDERS: ADMIT Allergy & Immunology; ATTEND Surgery
PROC: HZ2ZZZZ Detoxification Services for Substance Abuse Treatment (ICD-10-PCS; principal; 2023-07-09)
DX: F10.230 Alcohol dependence with withdrawal, uncomplicated (principal); F14.20 Cocaine dependence, uncomplicated; F12.20 Cannabis dependence, uncomplicated; F17.210 Nicotine dependence, cigarettes, uncomplicated; Z21 Asymptomatic human immunodeficiency virus [HIV] infection status; I25.10 Atherosclerotic heart disease of native coronary artery without angina pectoris; I10 Essential (primary) hypertension; I25.2 Old myocardial infarction; Z95.5 Presence of coronary angioplasty implant and graft; R01.1 Cardiac murmur, unspecified; Z79.899 Other long term (current) drug therapy
CPT/HCPCS: 36415; 80305; 80307; 82140; 93005; 93010

== ENCOUNTER 2023-11-11 10:08 | Inpatient (IN) | payer OTHER ==
[2023-11-11 10:41] VITALS: BMI 29.2
[2023-11-11] MEDS ORDERED: ALBUTEROL SO4 HFA INHALER IH PRN (12:09)
[2023-11-11] MEDS ORDERED: POLYETHYLENE GLYCOL (HEALTHYLAX) 3350 17 GM PACKET PO PRN (12:11)
[2023-11-11] MEDS ORDERED: MAG HYDROX/AL HYDROX/SIMETH 30 ML UNIT-DOSE CUP PO PRN (12:11)
[2023-11-11] MEDS ORDERED: MAGNESIUM HYDROX 2400MG/30ML ORAL SUSPENSION 30 ML CUP PO PRN (12:11)
[2023-11-11] MEDS ORDERED: BISMUTH SUBSALICYLATE 524 MG/30 ML PO PRN (12:11)
[2023-11-11] MEDS ORDERED: DICYCLOMINE HCL 10 MG CAPSULE PO PRN (12:11)
[2023-11-11] MEDS ORDERED: IBUPROFEN 400 MG TABLET (FP) PO PRN (12:11)
[2023-11-11] MEDS ORDERED: METHOCARBAMOL 500 MG TABLET PO PRN (12:11)
[2023-11-11] MEDS ORDERED: LOPERAMIDE HCL 2 MG CAPSULE PO PRN (12:11)
[2023-11-11] MEDS ORDERED: NALOXONE (NARCAN) HCL 4 MG/0.1 ML SPRAY NS PRN (12:11)
[2023-11-11] MEDS ORDERED: ACETAMINOPHEN 325 MG TABLET (FP) PO PRN (12:11)
[2023-11-11] MEDS ORDERED: ONDANSETRON *ODT* 4 MG TABLET SL PRN (12:11)
[2023-11-11] MEDS ORDERED: hydrOXYzine PAMOATE 25 MG CAPSULE (FP) PO PRN (12:11)
[2023-11-11] MEDS ORDERED: BENZOCAINE/MENTHOL (CHLORASEPTIC ) LOZENGE MM PRN (12:11)
[2023-11-11] MEDS ORDERED: IBUPROFEN 600 MG TABLET (FP) PO PRN (12:11)
[2023-11-11] MEDS ORDERED: BENZONATATE 200 MG CAPSULE PO PRN (12:11)
[2023-11-11] MEDS: NALOXONE (NYS OPIOID OVERDOSE PROGRAM) 4 MG/0.1 ML SPRAY NS ONE (12:57)
[2023-11-11] MEDS: chlordiazePOXIDE HCL 25 MG CAPSULE PO PRN (14:15)
[2023-11-11] MEDS: chlordiazePOXIDE HCL 25 MG CAPSULE PO SCH (17:40)
[2023-11-11] MEDS: guaiFENesin 600 MG TABLET.ER (FP) PO PRN (17:42)
[2023-11-11] MEDS: THIAMINE 100 MG TABLET PO SCH (22:20)
[2023-11-11] MEDS: MELATONIN 5 MG TABLETS PO SCH (22:20)
[2023-11-11] MEDS: ATORVASTATIN CA 40 MG TABLET (FP) PO SCH (22:21)
[2023-11-11] MEDS: BUDESONIDE/FORMETEROL FUMARATE 160/4.5 mcg INHALER IH SCH (22:21)
[2023-11-12 06:00] VITALS: RESP 16
[2023-11-12] MEDS: BICTEGRAV/EMTRICIT/TENOFOV (BIKTARVY) 50-200-25 MG TABLET PO SCH (07:07)
[2023-11-12] MEDS ORDERED: diphenhydrAMINE HCL 25 MG CAPSULE (FP) PO PRN (10:04)
[2023-11-12] MEDS: PRENATAL VITAMINS W/ FOLIC ACID TABLET (FP) PO SCH (10:13)
[2023-11-12] MEDS: ASPIRIN COATED 81 MG TABLET.EC PO SCH (10:14)
[2023-11-12] MEDS: LOSARTAN POTASSIUM 25 MG TABLET PO SCH (10:47)
[2023-11-12] MEDS: OFLOXACIN 0.3% OTIC SOLUTION 5 ML BOTTLE AU SCH (11:53)
[2023-11-12 12:02] LABS: HEMATOCRIT 40.4 % (35.4-49); HEMOGLOBIN 13.2 GM/dL (11.7-16.9); MCH 28.9 pg (25.7-33.7); MCHC 32.6 g/dl (32.0-35.9); MEAN CELL VOLUME 88.9 fl (80-96); MEAN PLT VOLUME 10.7 fl (7.5-11.1); PLATELET COUNT 148 10^3/uL (134-434); RBC 4.55 M/mm3 (4.00-5.60); RDW 14.3 % (11.9-15.9); WHITE BLOOD COUNT 4.3 K/mm3 (4.0-10.0)
[2023-11-12 12:11] LABS: CHLORIDE 105 mmol/L (98-107); POTASSIUM 4.3 mmol/L (3.5-5.1); SODIUM 139 mmol/L (136-145)
[2023-11-12 12:13] LABS: CALCIUM 9.5 mg/dL (8.5-10.1)
[2023-11-12 12:14] LABS: ALBUMIN 3.9 g/dl (3.4-5.0); ANION GAP 6 mmol/L (4-13); BLOOD UREA NITROGEN 14.1 mg/dL (7-18); CO2 28 mmol/L (21-32); GLUCOSE,RANDOM 90 mg/dL (74-106)
[2023-11-12 12:17] LABS: CREATININE 0.9 mg/dL (0.55-1.3); SGOT/AST 48 U/L (15-37); SGPT/ALT 45 U/L (13-61)
[2023-11-12 12:18] LABS: BILIRUBIN,TOTAL 0.6 mg/dL (0.2-1)
[2023-11-12 12:20] LABS: ALK PHOS 88 U/L (45-117)
[2023-11-12 13:08] VITALS: BP 112/79; PULSE 72; TEMP 97.3
[2023-11-12] MEDS ORDERED: NALOXONE (NYS OPIOID OVERDOSE PROGRAM) 4 MG/0.1 ML SPRAY NS PRN (14:07)
[2023-11-13] MEDS ORDERED: chlordiazePOXIDE HCL 25 MG CAPSULE PO SCH (05:00)
[2023-11-14] MEDS ORDERED: chlordiazePOXIDE HCL 10 MG CAPSULE PO PRN
[2023-11-14] MEDS ORDERED: chlordiazePOXIDE HCL 10 MG CAPSULE PO SCH (05:00)
[2023-11-15] MEDS ORDERED: chlordiazePOXIDE HCL 10 MG CAPSULE PO SCH (05:00)
[2023-11-16] MEDS ORDERED: chlordiazePOXIDE HCL 10 MG CAPSULE PO ONE (05:00)
== END 2023-11-12 15:08 | disposition left against medical advice (07) | DRG 770 ==
LOC: YASAS 10:08 → Y3N 12:31
PROVIDERS: ADMIT Surgery; ATTEND Surgery
PROC: HZ2ZZZZ Detoxification Services for Substance Abuse Treatment (ICD-10-PCS; principal; 2023-11-11)
DX: F10.230 Alcohol dependence with withdrawal, uncomplicated (principal); F14.20 Cocaine dependence, uncomplicated; F12.20 Cannabis dependence, uncomplicated; F17.210 Nicotine dependence, cigarettes, uncomplicated; Z21 Asymptomatic human immunodeficiency virus [HIV] infection status; I25.10 Atherosclerotic heart disease of native coronary artery without angina pectoris; I10 Essential (primary) hypertension; I25.2 Old myocardial infarction; Z95.5 Presence of coronary angioplasty implant and graft; J45.20 Mild intermittent asthma, uncomplicated; H66.90 Otitis media, unspecified, unspecified ear; Z79.899 Other long term (current) drug therapy; Z86.11 Personal history of tuberculosis
CPT/HCPCS: 36415; 80053; 80305; 80307; 85027; 86780; 93005; 93010

== ENCOUNTER 2024-02-27 08:48 | Inpatient (IN) | payer OTHER ==
[2024-02-27 09:11] VITALS: BMI 29.2
[2024-02-27] MEDS ORDERED: guaiFENesin 600 MG TABLET.ER (FP) PO PRN (10:23)
[2024-02-27] MEDS ORDERED: METHOCARBAMOL 500 MG TABLET PO PRN (10:23)
[2024-02-27] MEDS ORDERED: NICOTINE POLACRILEX 2 MG LOZENGE BC PRN (10:23)
[2024-02-27] MEDS ORDERED: P-EPHED 60MG/TRIPROLIDI 2.5MG TABLET PO PRN (10:23)
[2024-02-27] MEDS ORDERED: BENZOCAINE/MENTHOL (CHLORASEPTIC ) LOZENGE MM PRN (10:23)
[2024-02-27] MEDS ORDERED: BENZONATATE 200 MG CAPSULE PO PRN (10:23)
[2024-02-27] MEDS ORDERED: DICYCLOMINE HCL 10 MG CAPSULE PO PRN (10:23)
[2024-02-27] MEDS ORDERED: ACETAMINOPHEN 325 MG TABLET (FP) PO PRN (10:23)
[2024-02-27] MEDS ORDERED: LOPERAMIDE HCL 2 MG CAPSULE PO PRN (10:23)
[2024-02-27] MEDS ORDERED: POLYETHYLENE GLYCOL (HEALTHYLAX) 3350 17 GM PACKET PO PRN (10:23)
[2024-02-27] MEDS ORDERED: ONDANSETRON *ODT* 4 MG TABLET SL PRN (10:23)
[2024-02-27] MEDS ORDERED: NICOTINE POLACRILEX 2 MG GUM BUC PRN (10:23)
[2024-02-27] MEDS ORDERED: MAG HYDROX/AL HYDROX/SIMETH 30 ML UNIT-DOSE CUP PO PRN (10:23)
[2024-02-27] MEDS ORDERED: IBUPROFEN 400 MG TABLET (FP) PO PRN (10:23)
[2024-02-27] MEDS ORDERED: BISMUTH SUBSALICYLATE 262 MG/15 ML BTL PO PRN (10:23)
[2024-02-27] MEDS ORDERED: ALBUTEROL SO4 HFA INHALER IH PRN (13:22)
[2024-02-27] MEDS: IBUPROFEN 600 MG TABLET (FP) PO PRN (19:33)
[2024-02-27] MEDS: MAGNESIUM HYDROX 2400MG/30ML ORAL SUSPENSION 30 ML CUP PO PRN (22:47)
[2024-02-27] MEDS: MELATONIN 5 MG TABLETS PO SCH (22:47)
[2024-02-27] MEDS: HYDROCORTISONE 0.5% TOPICAL CREAM 30 GM TUBE TP PRN (22:47)
[2024-02-27] MEDS: ATORVASTATIN CA 40 MG TABLET (FP) PO SCH (22:47)
[2024-02-27] MEDS: THIAMINE 100 MG TABLET PO SCH (22:49)
[2024-02-27] MEDS: BUDESONIDE/FORMETEROL FUMARATE 160/4.5 mcg INHALER IH SCH (22:51)
[2024-02-28 06:21] VITALS: RESP 16
[2024-02-28] MEDS: BICTEGRAV/EMTRICIT/TENOFOV (BIKTARVY) 50-200-25 MG TABLET PO SCH (07:33)
[2024-02-28 09:14] LABS: HEMATOCRIT 37.4 % (35.4-49); HEMOGLOBIN 12.1 GM/dL (11.7-16.9); MCHC 32.5 g/dl (32.0-35.9); MEAN CELL VOLUME 89.2 fl (80-96); MEAN PLT VOLUME 10.5 fl (7.5-11.1); PLATELET COUNT 166 10^3/uL (134-434); RBC 4.19 M/mm3 (4.00-5.60); RDW 15.2 % (11.9-15.9); WHITE BLOOD COUNT 5.2 K/mm3 (4.0-10.0)
[2024-02-28 09:21] LABS: POTASSIUM 4.4 mmol/L (3.5-5.1)
[2024-02-28 09:30] LABS: ALBUMIN 3.3 g/dl (3.4-5.0); BLOOD UREA NITROGEN 10.1 mg/dL (7-18); CREATININE 0.9 mg/dL (0.55-1.3)
[2024-02-28 09:33] LABS: BILIRUBIN,TOTAL 0.3 mg/dL (0.2-1); TOT PROT 7.4 g/dl (6.4-8.2)
[2024-02-28] MEDS: PRENATAL VITAMINS W/ FOLIC ACID TABLET (FP) PO SCH (09:44)
[2024-02-28] MEDS: ASPIRIN COATED 81 MG TABLET.EC PO SCH (09:44)
[2024-02-28 09:54] VITALS: BP 123/81; PULSE 62; TEMP 96.9
== END 2024-02-28 09:48 | disposition home or self-care (01) | DRG 774 ==
LOC: YASAS 08:48 → Y3N 10:59
PROVIDERS: ADMIT Allergy & Immunology; ATTEND Allergy & Immunology
PROC: HZ2ZZZZ Detoxification Services for Substance Abuse Treatment (ICD-10-PCS; principal; 2024-02-27)
DX: F10.230 Alcohol dependence with withdrawal, uncomplicated (principal); F14.20 Cocaine dependence, uncomplicated; F12.20 Cannabis dependence, uncomplicated; F17.210 Nicotine dependence, cigarettes, uncomplicated; Z21 Asymptomatic human immunodeficiency virus [HIV] infection status; J45.909 Unspecified asthma, uncomplicated; I25.10 Atherosclerotic heart disease of native coronary artery without angina pectoris; I10 Essential (primary) hypertension; I25.2 Old myocardial infarction; Z95.5 Presence of coronary angioplasty implant and graft; Z79.899 Other long term (current) drug therapy; Z86.11 Personal history of tuberculosis
CPT/HCPCS: 36415; 80053; 80305; 80307; 85027; 86780